=== PATIENT | female | born 1950 | race Caucasian/White ===

== ENCOUNTER → 2022-03-24 | Outpatient (CLI) | payer MEDICARE ==
[2022-03-24 16:42] LABS: Basophils # (A) 0.08 X 10*3/uL (0.00-0.10); Eosinophils # (A) 0.19 X 10*3/uL (0.04-0.35); Eosinophils % (A) 2.3 %; HCT 44.6 % (37.2-46.3); HGB 13.9 g/dL (12.0-15.0); Immature Grans, Automated 0.1 %; Lymphocytes # (A) 1.74 X 10*3/uL (0.90-5.00); Lymphocytes % (A) 21.4 %; MCH 29.3 pg (27.0-32.0); MCHC 31.2 g/dL (32.0-37.0); MCV 93.9 fL (80.0-97.0); Mean Platelet Volume 11.5 fL (9.5-12.2); Monocytes # (A) 0.63 X 10*3/uL (0.20-1.00); Monocytes % (A) 7.8 %; NRBC Per 100 WBC 0 /100 WBCS (0.0-0.0); Neutrophils # (A) 5.47 X 10*3/uL (1.80-7.70); Neutrophils % (A) 67.4 %; Platelet Count 227 X 10*3/uL (140-440); RBC 4.75 X 10*6/uL (4.10-5.20); RDW 15.1 % (11.5-14.5); WBC 8.12 X 10*3/uL (4.50-10.00)
[2022-03-24 18:29] LABS: % Iron Saturation 18.73 (12.00-45.00); ALT 17 U/L (8-44); AST 22 U/L (13-35); African American GFR (CKD) 26.1 (60.0-200.0); Albumin 4.3 g/dL (3.8-4.9); Albumin/Globulin Ratio 1.32 (1.60-3.17); Alkaline Phosphatase 163 U/L (41-126); BUN/Creat Ratio 20.85 Ratio (12.00-20.00); Blood Urea Nitrogen 44.4 mg/dL (9.0-27.0); Calcium 11.2 mg/dL (8.7-10.3); Carbon Dioxide 24.9 mmol/L (20.0-27.5); Chloride 102 mmol/L (96-109); Globulin 3.3 g/dL (1.6-3.3); Glucose 163 mg/dL (70-110); Iron 92 ug/dL (50-170); Magnesium 2.2 mg/dL (1.5-2.4); Non-African American GFR(CKD) 22.5 (60.0-200.0); Phosphorus 2.8 mg/dL (2.4-5.1); Potassium 4.7 mmol/L (3.5-5.5); Sodium 141 mmol/L (135-145); Total Iron Binding Capacity 493 ug/dL (228-460); Total Protein 7.6 g/dL (6.2-8.2); Uric Acid 7.6 mg/dL (2.9-7.7)
[2022-03-24 18:41] LABS: Erythrocyte Sedimentation Rate 26 mm/Hr (0-30)
[2022-03-24 20:20] LABS: Chol/HDL Ratio 2.62 Ratio; Creatine Kinase 32 U/L (26-186); LDL Cholesterol,Calculated 61.4 mg/dL (0.0-131.0); VLDL Calculation 19.62 mg/dL (5.00-40.00)
[2022-03-24 20:27] LABS: Digoxin 0.9 ng/mL (0.8-2.0)
== END | disposition home or self-care (01) ==
LOC: LABWHC1 11:30
PROVIDERS: ATTEND Internal Medicine Cardiovascular Disease
DX: D64.9 Anemia, unspecified (principal); I50.9 Heart failure, unspecified; E87.8 Other disorders of electrolyte and fluid balance, not elsewhere classified; E87.6 Hypokalemia; N18.4 Chronic kidney disease, stage 4 (severe); E78.5 Hyperlipidemia, unspecified; E21.3 Hyperparathyroidism, unspecified; E11.65 Type 2 diabetes mellitus with hyperglycemia; E03.9 Hypothyroidism, unspecified; E55.9 Vitamin D deficiency, unspecified; I12.9 Hypertensive chronic kidney disease with stage 1 through stage 4 chronic kidney disease, or unspecified chronic kidney disease
CPT/HCPCS: 36415; 80053; 80061; 80162; 82306; 82550; 83036; 83540; 83550; 83735; 83970; 84100; 84439; 84443; 84550; 85025; 85652; 86140

== ENCOUNTER → 2022-04-18 | Outpatient (CLI) | payer MEDICARE ==
--- NOTE | 2022-04-18 16:18 | US ---
EXAMINATION TYPE: US kidneys/renal and bladder DATE OF EXAM: 04/18/2022 COMPARISON: NONE CLINICAL HISTORY: R94.4 ABN RENAL FUNCTION TEST. Stage 3 kidney disease EXAM MEASUREMENTS: Right Kidney: 9.3 x 4.4 x 4.3 cm Left Kidney: 9.6 x 4.1 x 4.7 cm Right Kidney: No hydronephrosis or masses seen Left Kidney: No hydronephrosis or masses seen. Kidney appears lobular. Parapelvic cyst seen measuring 0.8 x 0.8 x 0.5 cm in midpole. Bladder: wnl Left bladder jet seen There is no evidence for hydronephrosis at this point in time. No nephrolithiasis is seen. No erich s are identified. The urinary bladder is anechoic. Incidental finding - gallstones seen in gallbladder. IMPRESSION: 1. Left peripelvic cyst. 2. Cholelithiasis
== END | disposition home or self-care (01) ==
LOC: RADUSWWP 14:46
PROVIDERS: ATTEND Internal Medicine
DX: R94.4 Abnormal results of kidney function studies (principal)
CPT/HCPCS: 76770

== ENCOUNTER → 2022-06-11 | Outpatient (CLI) | payer MEDICARE ==
--- NOTE | 2022-06-11 14:50 | XR ---
EXAMINATION TYPE: XR ribs bilateral DATE OF EXAM: 06/11/2022 2:28 PM INDICATION: Patient age:Female; 71 years old; Reason for study: E83.52,N18.4,E21.3,R07.81; [facility]. COMPARISON: Chest radiograph 06/28/2014. TECHNIQUE: Frontal and oblique views of the bilateral ribs were obtained with a total of 8 images. FINDINGS: Left chest wall dual lead cardiac pacemaking device identified. Moderate cardiomegaly redem onstrated. Aortic calcifications noted. Median sternotomy wires are demonstrated. Small bilateral ple ural effusions demonstrated with blunting of the bilateral costophrenic angles. No pneumothorax. Mult iple mediastinal surgical clips noted. No focal consolidation. Nondisplaced right lateral 9-12 rib fr actures. No definitive callus formation identified at this time. IMPRESSION RIBS: * Nondisplaced acute/subacute right lateral 9-12 rib fractures. No definitive pneumothorax. * Moderate cardiomegaly with small bilateral pleural effusions.
== END | disposition home or self-care (01) ==
LOC: RADXRMAIN 13:57
PROVIDERS: ATTEND Internal Medicine
DX: E83.52 Hypercalcemia (principal); N18.4 Chronic kidney disease, stage 4 (severe); R07.81 Pleurodynia
CPT/HCPCS: 71110

== ENCOUNTER → 2022-06-25 | Outpatient (CLI) | payer MEDICARE ==
[2022-06-25 14:39] LABS: Basophils # (A) 0.04 X 10*3/uL (0.00-0.10); Basophils % (A) 0.8 %; Eosinophils # (A) 0.21 X 10*3/uL (0.04-0.35); HCT 45.4 % (37.2-46.3); HGB 13.9 g/dL (12.0-15.0); Immature Grans, Automated 0.4 %; Lymphocytes # (A) 1.61 X 10*3/uL (0.90-5.00); Lymphocytes % (A) 30.3 %; MCH 28.4 pg (27.0-32.0); MCHC 30.6 g/dL (32.0-37.0); MCV 92.8 fL (80.0-97.0); Mean Platelet Volume 11.6 fL (9.5-12.2); Monocytes # (A) 0.53 X 10*3/uL (0.20-1.00); NRBC Per 100 WBC 0 /100 WBCS (0.0-0.0); Neutrophils % (A) 54.5 %; Platelet Count 181 X 10*3/uL (140-440); RBC 4.89 X 10*6/uL (4.10-5.20); RDW 15.6 % (11.5-14.5); WBC 5.31 X 10*3/uL (4.50-10.00)
[2022-06-25 14:47] LABS: African American GFR (CKD) 23.8 (60.0-200.0); Albumin 4.5 g/dL (3.8-4.9); Albumin/Globulin Ratio 1.45 (1.60-3.17); Anion Gap 12.6 mmol/L (10.00-18.00); BUN/Creat Ratio 24.35 Ratio (12.00-20.00); Calcium 11.4 mg/dL (8.7-10.3); Carbon Dioxide 27.4 mmol/L (20.0-27.5); Globulin 3.1 g/dL (1.6-3.3); Non-African American GFR(CKD) 20.5 (60.0-200.0); Phosphorus 3.1 mg/dL (2.4-5.1); Potassium 4.6 mmol/L (3.5-5.5); Total Bilirubin 0.9 mg/dL (0.30-1.20); Total Protein 7.6 g/dL (6.2-8.2)
== END | disposition home or self-care (01) ==
LOC: LABWHC1 10:09
PROVIDERS: ATTEND Internal Medicine
DX: N18.4 Chronic kidney disease, stage 4 (severe) (principal)
CPT/HCPCS: 36415; 80053; 84100; 85025

== ENCOUNTER → 2022-07-03 | Outpatient (CLI) | payer MEDICARE ==
[2022-07-04 00:24] LABS: African American GFR (CKD) 26.7 (60.0-200.0); Albumin 4.1 g/dL (3.8-4.9); Albumin/Globulin Ratio 1.51 (1.60-3.17); Anion Gap 12.2 mmol/L (10.00-18.00); BUN/Creat Ratio 24.78 Ratio (12.00-20.00); Blood Urea Nitrogen 51.8 mg/dL (9.0-27.0); Calcium 11.1 mg/dL (8.7-10.3); Carbon Dioxide 29.2 mmol/L (20.0-27.5); Globulin 2.8 g/dL (1.6-3.3); Non-African American GFR(CKD) 23.1 (60.0-200.0); Total Bilirubin 0.9 mg/dL (0.30-1.20); Total Protein 6.9 g/dL (6.2-8.2)
== END | disposition home or self-care (01) ==
LOC: LABWHC1 16:20
PROVIDERS: ATTEND Internal Medicine
DX: N18.4 Chronic kidney disease, stage 4 (severe) (principal)
CPT/HCPCS: 36415; 80053

== ENCOUNTER 2022-07-29 08:37 | Inpatient (IN) | payer MEDICARE ==
[2022-07-29] MEDS ORDERED: METOPROLOL TARTRATE 5 MG/5 ML VIAL IVP STA (08:44)
--- NOTE | 2022-07-29 08:46 | ED ---
General Adult HPI - General Stated complaint: AFib Time Seen by Provider: 07/29/22 08:38 Source: patient, EMS, RN notes reviewed, old records reviewed Mode of arrival: EMS Limitations: no limitations - History of Present Illness Initial comments: Patient is a pleasant 71-year-old female presenting to the emergency department with concerns for general weakness. Onset of symptoms was a week or 2 ago. Patient does have associated exertional dyspnea. Patient states she has been limiting her activity secondary to this. No chest pain or palpitations. Patient does take anticoagulant with history of atrial fibrillation. No leg pain or leg swelling. No isolated area of weakness or confusion. - Related Data Home Medications Medication Instructions Recorded Confirmed Atorvastatin [Lipitor] 80 mg PO DAILY 06/28/14 06/28/14 Bumetanide [BUMEX] 0.5 mg PO DAILY 06/28/14 06/28/14 Calcium Carbonate/Vitamin D3 1 tab PO DAILY 06/28/14 06/28/14 [Caltrate 600 Plus D3 Tablet] Cholecalciferol [Vitamin D3 (10 4,000 unit PO DAILY 06/28/14 06/28/14 Mcg = 400 Iu)] Digoxin [Lanoxin] 0.125 mg PO DAILY 06/28/14 06/28/14 Losartan [Cozaar] 50 mg PO DAILY 06/28/14 06/28/14 Memantine HCl [Namenda Xr] 28 mg PO DAILY 06/28/14 06/28/14 Metoprolol Succinate (ER) [Toprol 50 mg PO BID 06/28/14 06/28/14 XL] PARoxetine HCL [PARoxetine HCL Cr] 25 mg PO DAILY 06/28/14 06/28/14 Potassium Chloride [K-Tab ER] 10 meq PO DAILY 06/28/14 06/28/14 Vit A,C & E/Lutein/Minerals 1 tab PO DAILY 06/28/14 06/28/14 [Ocuvite with Lutein Tablet] Warfarin [Coumadin] 1.5 mg PO DIRECTED 06/28/14 06/28/14 Warfarin [Coumadin] 3 mg PO DIRECTED 06/28/14 06/28/14 glipiZIDE [Glucotrol] 5 mg PO DAILY 06/28/14 06/28/14 lamoTRIgine [Lamotrigine ER] 200 mg PO DAILY 06/28/14 06/28/14 Previous Rx's Medication Instructions Recorded Aspirin 325 mg PO DAILY #1 tab 07/01/14 Furosemide [Lasix] 40 mg PO DAILY #30 tablet 07/01/14 Spironolactone [Aldactone] 25 mg PO DAILY #30 tab 07/01/14 Tolterodine [Detrol] 2 mg PO BID #60 tab 07/01/14 Allergies Allergy/AdvReac Type Severity Reaction Status Date / Time iodine Allergy Unknown Verified 06/28/14 14:11 nifedipine [From Procardia] Allergy Unknown Verified 06/28/14 14:11 Review of Systems ROS Statement: Those systems with pertinent positive or pertinent negative responses have been documented in the HPI. ROS Other: All systems not noted in ROS Statement are negative. Constitutional: Denies: fever Eyes: Denies: eye pain ENT: Denies: ear pain Respiratory: Denies: cough Cardiovascular: Reports: dyspnea on exertion. Denies: chest pain Endocrine: Reports: fatigue Gastrointestinal: Denies: vomiting Genitourinary: Denies: dysuria Musculoskeletal: Denies: back pain Skin: Denies: rash Neurological: Reports: as per HPI. Denies: confusion Past Medical History Past Medical History: Diabetes Mellitus, Hyperlipidemia, Hypertension, Myocardial Infarction ([place]) Last Myocardial Infarction Date:: september 1991 History of Any Multi-Drug Resistant Organisms: None Reported Past Surgical History: AICD, Coronary Bypass/CABG Additional Past Surgical History / Comment(s): 1998 qunituple cabg Past Anesthesia/Blood Transfusion Reactions: No Reported Reaction Type of Cardiac Device: Permanent Pacemaker, AICD Device Placement Date:: 2001 Past Psychological History: Anxiety, Depression Past Alcohol Use History: None Reported - Past Family History Sister(s) Family Medical History: Deep Vein Thrombosis (DVT) Mother Family Medical History: Diabetes Mellitus Additional Family Medical History / Comment(s): mitral valve problemsl; stroke; macular degeneration Father Additional Family Medical History / Comment(s): ? cardiac history General Exam Limitations: no limitations General appearance: alert, in no apparent distress Head exam: Present: normocephalic Eye exam: Present: normal appearance Neck exam: Present: normal inspection Respiratory exam: Present: normal lung sounds bilaterally Cardiovascular Exam: Present: tachycardia, irregular rhythm Expanded Peripheral pulses: 2+: Radial (R), Radial (L), Dorsalis Pedis (R), Dorsalis Pedis (L) GI/Abdominal exam: Present: soft. Absent: tenderness Extremities exam: Present: normal inspection. Absent: pedal edema, calf tenderness Neurological exam: Present: alert, oriented X3, CN II-XII intact. Absent: motor sensory deficit Psychiatric exam: Present: normal affect, normal mood Skin exam: Present: normal color Course Vital Signs 07/29/22 07/29/22 07/29/22 08:41 09:02 09:30 Temperature 98.6 F 98.4 F 98.8 F Pulse Rate 123 H 110 H 116 H Pulse Rate [ 116 H Bilateral] Respiratory 20 20 20 Rate Blood Pressure 104/76 104/76 123/69 O2 Sat by Pulse 98 98 96 Oximetry 07/29/22 07/29/22 10:00 11:04 Temperature 100.1 F H 99.1 F Pulse Rate 128 H 102 H Pulse Rate [ Bilateral] Respiratory 16 16 Rate Blood Pressure 115/64 106/42 O2 Sat by Pulse 94 L 95 Oximetry - Reevaluation(s) Reevaluation #1: 07/29/22 08:51 Unable to view previous EKGs 07/29/22 09:04 Repeat EKG shows paced rhythm with a rate of 123. QRS 163. QT 322. QTC 365. Superior axis. Wide-complex QRS. Nonspecific ST-T. patient monitor with varying irregular rhythm, slightly widening QRS complex with rate between 105 and 135, frequently involved paced rhythm. 07/29/22 11:40 Patient is not felt to meet sepsis criteria secondary to tachycardia associated with patient's history of atrial fibrillation. In addition fluid bolus felt to be unwise secondary to patient's history of CHF and potential worsening dyspnea. EKG Findings - EKG Comments: EKG Findings:: EKG shows irregular rhythm with frequent paced rhythm rate 126. QRS 153. QT 297. QTC 372. [place] indeterminate. Q waves V2 V3. Nonspecific ST-T. Medical Decision Making - Medical Decision Making Patient reevaluated. Patient and family updated. Case was discussed with patient's primary care physician Dr. So, who will admit his patient consults with cardiology as well as nephrology. - Lab Data Result diagrams: 07/29/22 08:56 07/29/22 08:56 Lab Results 07/29/22 07/29/22 07/29/22 Range/Units 08:56 08:56 08:56 WBC 14.2 H (3.8-10.6) k/uL RBC 4.61 (3.80-5.40) m/uL Hgb 13.9 (11.4-16.0) gm/dL Hct 42.4 (34.0-46.0) % MCV 92.1 (80.0-100.0) fL MCH 30.1 (25.0-35.0) pg MCHC 32.7 (31.0-37.0) g/dL RDW 15.2 (11.5-15.5) % Plt Count 164 (150-450) k/uL MPV 8.7 Neutrophils % 88 % Lymphocytes % 5 % Monocytes % 5 % Eosinophils % 1 % Basophils % 1 % Neutrophils # 12.4 H (1.3-7.7) k/uL Lymphocytes # 0.7 L (1.0-4.8) k/uL Monocytes # 0.8 (0-1.0) k/uL Eosinophils # 0.1 (0-0.7) k/uL Basophils # 0.1 (0-0.2) k/uL Hypochromasia Slight PT 33.7 H (9.0-12.0) sec INR 3.4 H (<1.2) APTT 29.6 (22.0-30.0) sec Sodium 137 (137-145) mmol/L Potassium 4.6 (3.5-5.1) mmol/L Chloride 102 (98-107) mmol/L Carbon Dioxide 23 (22-30) mmol/L Anion Gap 12 mmol/L BUN 50 H (7-17) mg/dL Creatinine 1.98 H (0.52-1.04) mg/dL Est GFR (CKD-EPI)AfAm 29 (>60 ml/min/1.73 sqM) Est GFR (CKD-EPI)NonAf 25 (>60 ml/min/1.73 sqM) Glucose 250 H (74-99) mg/dL Calcium 10.9 H (8.4-10.2) mg/dL Magnesium 1.9 (1.6-2.3) mg/dL Total Bilirubin 3.1 H (0.2-1.3) mg/dL AST 28 (14-36) U/L ALT 20 (4-34) U/L Alkaline Phosphatase 200 H (38-126) U/L Troponin I (0.000-0.034) ng/mL NT-Pro-B Natriuret Pep pg/mL Total Protein 6.7 (6.3-8.2) g/dL Albumin 3.8 (3.5-5.0) g/dL TSH 3.280 (0.465-4.680) mIU/L Free T4 2.05 (0.78-2.19) ng/dL Free T3 pg/mL 4.0 (2.8-5.3) pg/ml Urine Color Urine Appearance (Clear) Urine pH (5.0-8.0) Ur Specific [place] (1.001-1.035) Urine Protein (Negative) Urine Glucose (UA) (Negative) Urine Ketones (Negative) Urine Blood (Negative) Urine Nitrite (Negative) Urine Bilirubin (Negative) Urine Urobilinogen (<2.0) mg/dL Ur Leukocyte Esterase (Negative) Urine RBC (0-5) /hpf Urine WBC (0-5) /hpf Ur Squamous Epith Cells (0-4) /hpf Amorphous Sediment (None) /hpf Urine Bacteria (None) /hpf Hyaline Casts (0-2) /lpf Urine Mucus (None) /hpf Coronavirus (PCR) (Not Detectd) Influenza Type A RNA (Not Detectd) Influenza Type B (PCR) (Not Detectd) 07/29/22 07/29/22 07/29/22 Range/Units 08:56 08:56 08:56 WBC (3.8-10.6) k/uL RBC (3.80-5.40) m/uL Hgb (11.4-16.0) gm/dL Hct (34.0-46.0) % MCV (80.0-100.0) fL MCH (25.0-35.0) pg MCHC (31.0-37.0) g/dL RDW (11.5-15.5) % Plt Count (150-450) k/uL MPV Neutrophils % % Lymphocytes % % Monocytes % % Eosinophils % % Basophils % % Neutrophils # (1.3-7.7) k/uL Lymphocytes # (1.0-4.8) k/uL Monocytes # (0-1.0) k/uL Eosinophils # (0-0.7) k/uL Basophils # (0-0.2) k/uL Hypochromasia PT (9.0-12.0) sec INR (<1.2) APTT (22.0-30.0) sec Sodium (137-145) mmol/L Potassium (3.5-5.1) mmol/L Chloride (98-107) mmol/L Carbon Dioxide (22-30) mmol/L Anion Gap mmol/L BUN (7-17) mg/dL Creatinine (0.52-1.04) mg/dL Est GFR (CKD-EPI)AfAm (>60 ml/min/1.73 sqM) Est GFR (CKD-EPI)NonAf (>60 ml/min/1.73 sqM) Glucose (74-99) mg/dL Calcium (8.4-10.2) mg/dL Magnesium (1.6-2.3) mg/dL Total Bilirubin (0.2-1.3) mg/dL AST (14-36) U/L ALT (4-34) U/L Alkaline Phosphatase (38-126) U/L Troponin I 0.055 H* (0.000-0.034) ng/mL NT-Pro-B Natriuret Pep 62998 pg/mL Total Protein (6.3-8.2) g/dL Albumin (3.5-5.0) g/dL TSH (0.465-4.680) mIU/L Free T4 (0.78-2.19) ng/dL Free T3 pg/mL (2.8-5.3) pg/ml Urine Color Yellow Urine Appearance Cloudy H (Clear) Urine pH 5.5 (5.0-8.0) Ur Specific [place] 1.019 (1.001-1.035) Urine Protein 2+ H (Negative) Urine Glucose (UA) Negative (Negative) Urine Ketones Negative (Negative) Urine Blood Small H (Negative) Urine Nitrite Negative (Negative) Urine Bilirubin Negative (Negative) Urine Urobilinogen 2.0 (<2.0) mg/dL Ur Leukocyte Esterase Large H (Negative) Urine RBC 31 H (0-5) /hpf Urine WBC 90 H (0-5) /hpf Ur Squamous Epith Cells 5 H (0-4) /hpf Amorphous Sediment Rare H (None) /hpf Urine Bacteria Rare H (None) /hpf Hyaline Casts 10 H (0-2) /lpf Urine Mucus Occasional H (None) /hpf Coronavirus (PCR) (Not Detectd) Influenza Type A RNA (Not Detectd) Influenza Type B (PCR) (Not Detectd) 07/29/22 07/29/22 Range/Units 10:25 10:25 WBC (3.8-10.6) k/uL RBC (3.80-5.40) m/uL Hgb (11.4-16.0) gm/dL Hct (34.0-46.0) % MCV (80.0-100.0) fL MCH (25.0-35.0) pg MCHC (31.0-37.0) g/dL RDW (11.5-15.5) % Plt Count (150-450) k/uL MPV Neutrophils % % Lymphocytes % % Monocytes % % Eosinophils % % Basophils % % Neutrophils # (1.3-7.7) k/uL Lymphocytes # (1.0-4.8) k/uL Monocytes # (0-1.0) k/uL Eosinophils # (0-0.7) k/uL Basophils # (0-0.2) k/uL Hypochromasia PT (9.0-12.0) sec INR (<1.2) APTT (22.0-30.0) sec Sodium (137-145) mmol/L Potassium (3.5-5.1) mmol/L Chloride (98-107) mmol/L Carbon Dioxide (22-30) mmol/L Anion Gap mmol/L BUN (7-17) mg/dL Creatinine (0.52-1.04) mg/dL Est GFR (CKD-EPI)AfAm (>60 ml/min/1.73 sqM) Est GFR (CKD-EPI)NonAf (>60 ml/min/1.73 sqM) Glucose (74-99) mg/dL Calcium (8.4-10.2) mg/dL Magnesium (1.6-2.3) mg/dL Total Bilirubin (0.2-1.3) mg/dL AST (14-36) U/L ALT (4-34) U/L Alkaline Phosphatase (38-126) U/L Troponin I (0.000-0.034) ng/mL NT-Pro-B Natriuret Pep pg/mL Total Protein (6.3-8.2) g/dL Albumin (3.5-5.0) g/dL TSH (0.465-4.680) mIU/L Free T4 (0.78-2.19) ng/dL Free T3 pg/mL (2.8-5.3) pg/ml Urine Color Urine Appearance (Clear) Urine pH (5.0-8.0) Ur Specific [place] (1.001-1.035) Urine Protein (Negative) Urine Glucose (UA) (Negative) Urine Ketones (Negative) Urine Blood (Negative) Urine Nitrite (Negative) Urine Bilirubin (Negative) Urine Urobilinogen (<2.0) mg/dL Ur Leukocyte Esterase (Negative) Urine RBC (0-5) /hpf Urine WBC (0-5) /hpf Ur Squamous Epith Cells (0-4) /hpf Amorphous Sediment (None) /hpf Urine Bacteria (None) /hpf Hyaline Casts (0-2) /lpf Urine Mucus (None) /hpf Coronavirus (PCR) Not Detected (Not Detectd) Influenza Type A RNA Not Detected (Not Detectd) Influenza Type B (PCR) Not Detected (Not Detectd) Disposition Clinical Impression: Urinary tract infection, Exertional dyspnea Disposition: ADMITTED IP TO THIS HOSP Is patient prescribed a controlled substance at d/c from ED?: No Referrals: Levy So MD [Primary Care Provider] - 1-2 days Time of Disposition: 11:41
[2022-07-29 09:07] LABS: Basophils # (A) 0.1 k/uL (0-0.2); Basophils % (A) 1 %; Eosinophils # (A) 0.1 k/uL (0-0.7); Eosinophils % (A) 1 %; HCT 42.4 % (34.0-46.0); HGB 13.9 gm/dL (11.4-16.0); Hypochromasia Slight; Lymphocytes # (A) 0.7 k/uL (1.0-4.8); Lymphocytes % (A) 5 %; MCH 30.1 pg (25.0-35.0); MCHC 32.7 g/dL (31.0-37.0); MCV 92.1 fL (80.0-100.0); Mean Platelet Volume 8.7; Monocytes # (A) 0.8 k/uL (0-1.0); Monocytes % (A) 5 %; Neutrophils # (A) 12.4 k/uL (1.3-7.7); Neutrophils % (A) 88 %; Platelet Count 164 k/uL (150-450); RBC 4.61 m/uL (3.80-5.40); RDW 15.2 % (11.5-15.5); WBC 14.2 k/uL (3.8-10.6)
[2022-07-29 09:16] LABS: INR 3.4 (<1.2); Partial Thromboplastin Time 29.6 sec (22.0-30.0); Prothrombin Time 33.7 sec (9.0-12.0)
--- NOTE | 2022-07-29 09:22 | XR ---
EXAMINATION TYPE: XR chest 1V portable DATE OF EXAM: 07/29/2022 9:16 AM COMPARISON: Chest radiographs from07/23/2022. TECHNIQUE: XR chest 1V portable Portable AP radiograph of the chest. CLINICAL INDICATION:Female, 71 years old with history of dysrhythmia; FINDINGS: Lungs/Pleura: There is no evidence of focal consolidation, or pneumothorax. Small bilateral pleural effusions. Pulmonary vascularity: Unremarkable. Heart/mediastinum: Cardiomediastinal silhouette is enlarged and stable. Two lead cardiac conduction d evice overlying the left hemithorax with lead tips projecting over the right ventricle and right atri um. Musculoskeletal: No acute osseous pathology. Midline sternotomy wires are noted. Right rib fractures are less well appreciated on this exam. IMPRESSION: 1. Small bilateral pleural effusions with associated atelectasis. 2. Right-sided rib fractures.
[2022-07-29 09:26] LABS: Albumin 3.8 g/dL (3.5-5.0); Calcium 10.9 mg/dL (8.4-10.2); Magnesium 1.9 mg/dL (1.6-2.3); Potassium 4.6 mmol/L (3.5-5.1); Total Bilirubin 3.1 mg/dL (0.2-1.3); Total Protein 6.7 g/dL (6.3-8.2)
[2022-07-29 09:37] LABS: T4, Free (Free Thyroxine) 2.05 ng/dL (0.78-2.19)
[2022-07-29] MEDS ORDERED: ACETAMINOPHEN TAB 325 MG TAB PO STA (10:06)
[2022-07-29 10:41] LABS: Amorphous Sediment,Urine Rare /hpf; Appearance,Urine Cloudy (Clear); Bacteria,Urine Rare /hpf; Bilirubin,Urine Negative (Negative); Blood,Urine Small (Negative); Color,Urine Yellow; Glucose,Urine (UA) Negative (Negative); Hyaline Casts,Urine 10 /lpf (0-2); Ketones,Urine Negative (Negative); Leukocyte Esterase,Urine Large (Negative); Mucus,Urine Occasional /hpf; Nitrite,Urine Negative (Negative); PH, Urine 5.5 (5.0-8.0); Protein,Urine 2+ (Negative); RBC,Urine 31 /hpf (0-5); Specific Gravity,Urine 1.019 (1.001-1.035); Squamous Epithelial Cell,Urine 5 /hpf (0-4); WBC,Urine 90 /hpf (0-5)
[2022-07-29] MEDS ORDERED: NALOXONE 0.4 MG/ML 1 ML VIAL IV PRN (11:43)
[2022-07-29] MEDS ORDERED: ACETAMINOPHEN TAB 325 MG TAB PO PRN (11:43)
[2022-07-29] MEDS ORDERED: FUROSEMIDE 10 MG/ML 4 ML VIAL IV STA (14:26)
--- NOTE | 2022-07-29 14:28 | P.CRDCN ---
History of Present Illness Consult date: 07/29/22 Requesting physician: Levy So Reason for Consult (text): exertional dyspnea, AFib Chief complaint: increasing weakness and shortness of breath History of present illness: This is a pleasant 71-year-old patient who follows in the office with Dr. Oneill. She has a history of prior CABG, ischemic cardiomyopathy, status post AICD, chronic persistent atrial fibrillation anticoagulated on warfarin, hypertension, CKD, hyperlipidemia and diabetes. Presented to the emergency department with c omplaints of progressively worsening weakness and shortness of breath over the last one to 2 weeks. Chest x-ray on admission showed small bilateral pleural effusions with associated atelectasis and right sided rib fractures. EKG showed atrial fibrillation with intermittently paced ventricular rhythm. Laboratory values show a white blood cell count of 14,200, INR 3.4, BUN 50, creatinine 1.98, NT proBNP 25,900 and troponin 0.055 and 0.068. Evidence of urinary tract infection. Blood pressure has been stable. T-max 100.1F. Upon review of the records so most recent available echocardiogram was from 2013 showed an ejection fraction less than 20%. Was apparently recently seen in the office and at that time her digoxin and spironolactone were both discontinued but she is not sure why. Over the last week or 2 she's been feeling more and more short of breath. She does have chronic orthopnea but has developed PND over the last couple weeks. She denies any worsening edema. She's had no chest discomfort, palpitations, dizziness or lightheadedness. Past Medical History Past Medical History: Diabetes Mellitus, Hyperlipidemia, Hypertension, Myoc ardial Infarction ([place]) Last Myocardial Infarction Date:: september 1991 History of Any Multi-Drug Resistant Organisms: None Reported Past Surgical History: AICD, Coronary Bypass/CABG Additional Past Surgical History / Comment(s): 1998 qunituple cabg Past Anesthesia/Blood Transfusion Reactions: No Reported Reaction Type of Cardiac Device: Permanent Pacemaker, AICD Device Placement Date:: 2001 Past Psychological History: Anxiety, Depression Past Alcohol Use History: None Reported - Past Family History Sister(s) Family Medical History: Deep Vein Thrombosis (DVT) Mother Family Medical History: Diabetes Mellitus Additional Family Medical History / Comment(s): mitral valve problemsl; stroke; macular degeneration Father Additional Family Medical History / Comment(s): ? cardiac history Medications and Allergies Home Medications Medication Instructions Recorded Confirmed Type Atorvastatin [Lipitor] 80 mg PO HS 06/28/14 07/29/22 History Bumetanide [BUMEX] 0.5 mg PO DAILY 06/28/14 07/29/22 History Metoprolol Succinate (ER) [Toprol 50 mg PO DAILY 06/28/14 07/29/22 History XL] Losartan [Cozaar] 25 mg PO DAILY 07/29/22 07/29/22 History Memantine [Namenda] 10 mg PO BID 07/29/22 07/29/22 History PARoxetine HCL [Paxil Cr] 37.5 mg PO DAILY 07/29/22 07/29/22 History Tolterodine [Detrol] 2 mg PO HS 07/29/22 07/29/22 History Warfarin [Coumadin] 2 mg PO HS 07/29/22 07/29/22 History glipiZIDE [glipiZIDE ER] 2.5 mg PO DAILY 07/29/22 07/29/22 History lamoTRIgine [LaMICtal] 200 mg PO HS 07/29/22 07/29/22 History Allergies Allergy/AdvReac Type Severity Reaction Status Date / Time Iodinated Contrast Media Allergy Rash/Hives Verified 07/29/22 13:18 iodine Allergy Rash/Hives Verified 07/29/22 13:18 nifedipine [From Procardia] Allergy Rash/Hives Verified 07/29/22 13:18 Physical Exam Vitals: Vital Signs Temp Pulse Pulse Resp BP Pulse Ox 07/29/22 12:39 99 20 104/42 95 07/29/22 11:04 99.1 F 102 H 16 106/42 95 07/29/22 10:00 100.1 F H 128 H 16 115/64 94 L 07/29/22 09:30 98.8 F 116 H 116 H 20 123/69 96 07/29/22 09:02 98.4 F 110 H 20 104/76 98 07/29/22 08:41 98.6 F 123 H 20 104/76 98 Intake and Output 07/28/22 07/29/22 07/29/22 22:59 06:59 14:59 Other: Weight 61.235 kg PHYSICAL EXAMINATION: This is a 71-year-old female in no apparent distress at the time of my examination. VITAL SIGNS: Blood pressure 104/42, heart rate 99, respirations 20, temp 99.1F. Patient is 95 % on room air. HEENT: Head is atraumatic, normocephalic. Pupils are equal, round. Sclerae ani cteric. Conjunctivae are clear. Mucous membranes of the mouth are moist. Neck is supple. There is no elevated jugular venous pressure. No carotid bruit is heard. CHEST EXAMINATION: Lungs reveal bibasilar crackles. No wheezes or rhonchi. Respirations even and nonlabored. HEART EXAMINATION: Heart irregular rate and rhythm, positive S1 and S2. No S3. No S4. Systolic murmur. ABDOMEN: Soft, nontender. Bowel sounds are heard. No organomegaly noted. EXTREMITIES: 2+ peripheral pulses with no evidence of peripheral edema and no calf tenderness noted. NEUROLOGIC EXAMINATION: Patient is awake, alert and oriented x3. Results 07/29/22 08:56 07/29/22 08:56 Cardiac Enzymes 07/29/22 07/29/22 07/29/22 Range/Units 08:56 08:56 12:00 AST 28 (14-36) U/L Troponin I 0.055 H* 0.068 H* (0.000-0.034) ng/mL Coagulation 07/29/22 Range/Units 08:56 PT 33.7 H (9.0-12.0) sec APTT 29.6 (22.0-30.0) sec CBC 07/29/22 Range/Units 08:56 WBC 14.2 H (3.8-10.6) k/uL RBC 4.61 (3.80-5.40) m/uL Hgb 13.9 (11.4-16.0) gm/dL Hct 42.4 (34.0-46.0) % Plt Count 164 (150-450) k/uL Comprehensive Metabolic Panel 07/29/22 Range/Units 08:56 Sodium 137 (137-145) mmol/L Potassium 4.6 (3.5-5.1) mmol/L Chloride 102 (98-107) mmol/L Carbon Dioxide 23 (22-30) mmol/L BUN 50 H (7-17) mg/dL Creatinine 1.98 H (0.52-1.04) mg/dL Glucose 250 H (74-99) mg/dL Calcium 10.9 H (8.4-10.2) mg/dL AST 28 (14-36) U/L ALT 20 (4-34) U/L Alkaline Phosphatase 200 H (38-126) U/L Total Protein 6.7 (6.3-8.2) g/dL Albumin 3.8 (3.5-5.0) g/dL Current Medications Generic Name Dose Route Start Last Admin Trade Name Freq PRN Reason Stop Dose Admin Acetaminophen 650 mg 07/29/22 11:43 Acetaminophen Tab 325 Mg Tab PO Q6HR PRN Mild Pain or Fever > 100.5 Atorvastatin Calcium 80 mg 07/29/22 21:00 Atorvastatin 80 Mg Tab PO HS [facility] Bumetanide 0.5 mg 07/30/22 09:00 Bumetanide 0.5 Mg Tablet PO DAILY [facility] Glipizide 2.5 mg 07/30/22 09:00 Glipizide 2.5 Mg Tab PO DAILY [facility] Ceftriaxone Sodium 1 gm/ 50 mls @ 100 mls/hr 07/29/22 11:45 07/29/22 12:37 Sodium Chloride IVPB 100 mls/hr Q12HR [facility] Administration Protocol Insulin Aspart 2 - 8 unit 07/29/22 17:30 Insulin Aspart (Novolog) 100 Unit/Ml Vial SQ AC-TID [facility] Protocol Lamotrigine 200 mg 07/29/22 21:00 Lamotrigine 100 Mg Tab PO HS [facility] Losartan Potassium 25 mg 07/30/22 09:00 Losartan 25 Mg Tab PO DAILY [facility] Memantine 10 mg 07/29/22 21:00 Memantine 10 Mg Tab PO BID [facility] Metoprolol Succinate 50 mg 07/29/22 13:30 Metoprolol Succinate (Er) 50 Mg Tab.Er.24h PO DAILY [facility] Miscellaneous Information 0 each 07/29/22 13:49 Warfarin Per Pharmacy MISCELLANE DIRECTED PRN ANTICOAG Naloxone HCl 0.2 mg 07/29/22 11:43 Naloxone 0.4 Mg/Ml 1 Ml Vial IV Q2M PRN Opioid Reversal Oxybutynin Chloride 5 mg 07/29/22 21:00 Oxybutynin Xl 5 Mg Tab.Er.24 PO HS [facility] Paroxetine HCl 30 mg 07/30/22 09:00 Paroxetine 10 Mg Tab PO DAILY [facility] Warfarin Sodium 0 mg 07/29/22 18:00 Warfarin 0.5 Mg Tab PO 07/29/22 18:01 ONCE@1800 ONE Intake and Output 07/28/22 07/29/22 07/29/22 22:59 06:59 14:59 Other: Weight 61.235 kg Patient Weight 07/30/22 06:59 Weight 61.235 kg 07/29/22 08:56 07/29/22 08:56 Assessment and Plan Assessment: #1 acute on chronic systolic congestive heart failure #2 CAD with prior CABG #3 ischemic cardiomyopathy #4 chronic persistent atrial fibrillation, anticoagulated on warfarin, INR supratherapeutic #5 UTI #6 chronic kidney disease, stable Plan: From cardiology perspective will give the patient also IV Lasix today. We will obtain a 2-D echo with Doppler study tomorrow to assess cardiac structure and function. Continued on monitor daily weights, renal function, electrolytes and I&O. We will continue to follow the patient and provide further recommendations accordingly. PERSONAL INJURY ATTORNEY note has been reviewed, I agree with a documented findings and plan of care. Patient was seen and examined.
--- NOTE | 2022-07-29 14:45 | P.HPIM ---
History of Present Illness H&P Date: 07/29/22 Chief Complaint: Progressive shortness of breath and fatigued with tiredness decrease her ac Progress note date of service 07/29/[address] IBIS Bell M.D. [facility]. Patient seen and evaluated [id number] and discussed with her the plan of care. Chief complaint patient has progressive weakness shortness of breath inability to do her ADLs at home could not handle it anymore came to the ER at [facility]. In the ER patient found that she had several medical problem #1 her heart rate was 128 with the left infraclavicular pacemaker with the atrial fibrillation acceleration. Associated with proBNP more than 25,000 with the underlying impaired ejection fraction approximately in the 30-25 per patient however I don't have an echocardiogram which will be ordered. #2 patient with history of coronary artery bypass 5 and left infraclavicular pacemaker with the ischemic cardiomyopathy and had currently in the ER elevated troponin 2 with the possibility of subendocardial ischemia. #3 chronic kidney disease stage IV #4 she had as well history of hypercalcemia, hyperparathyroidism, mineral bone disease associated with the renal compromising status. Area as well found that she had a UTI and they started her on the Rocephin twice a day 1 g. Patient is diabetic and she is also on anticoagulant she had elevated pro-time and INR will held Coumadin today until tomorrow and asking consultation with pharmacy to address and the monitor. On admission she had pyrexia with the elevated temperature 100.1 F oral a blood culture was obtained and we request as well if the temperature is elevated again with repeat the blood culture 2. She has a history of cholelithiasis in the past as well. Past medical history she had history of coronary artery disease a status post coronary artery bypass graft 4 Chronic kidney disease stage IV and biventricular chronic congestive heart failure and atrial fibrillation. [place]. And recently moved to [place]. Patient seen recently by Maria Del Rosario physician certified medical technician assistant at Dr. Orellana office medical transcription supervisor and that they took her off the digoxin. She is on warfarin anticoagulant and did not change that per cardiology. She had a past history of fall and fracture of the right ribs on June 11. ALLERGY nifedipine, iodine topical, Monodox, cephalexin. Social history one dog 1 daughter and 1 son Live alone Former smoker start 1970 and stopped in 1990 . She has underlying major depressive disorder treated with psychiatrist. Reviewing of the system: Neuropsychiatry stable with her current medication Cardiovascular progressive shortness of breath however troponin was elevated on this admission 2 Pulmonary again shortness of breath and the chest x-ray was indicating pleural effusion and atelectasis and leukocytosis and patient had blood culture on admission and found that her urine infection. Frequency of urination and associated with diabetes and also chronic kidney disease and congestive heart failure she is on diuretics. Skin no rashes. History of hyperlipidemia and vitamin D insufficiency. However currently she had hypercalcemia. Musculoskeletal she had pain in the rib cage and the right sided with the presence of fracture due to fall Eyes she wears glasses and she had a pacemaker infraclavicular she thought that she has history of swelling however on exam was negative On exam [id number] her vital sign indicating on admission temperature 100.1 F oral heart rate 1 28 bpm irregular irregularity was white 4 times a day harass complexes from the pacemaker is her blood pressure was 115/64 her pulse ox 94 on room air. Her laboratories in the ER found white count 14.2 with leukocytosis and neutrophilia feel 12.4 her PTT 33.7 with INR 3.4 and the PTT 29.6. Chemistry sodium 137 potassium 4.6 chloride 102 carbon dioxide 23 BUN 50 creatinine 1.9 to EGFR for non- 25 her glucose 250. Her lactic acid was 1.3 normal her calcium was 10.9 prior to that was 11 AST 28 a LT 20 alk phos 200 and her troponin I correction troponin 10.055 first reading and second reading 0.68 with progressive elevation her pro-NT proBNP 25 925,900. With the underlying UTI was increase the leukocytes. On the exam the head was normocephalic and atraumatic pupil was equal reactive conjunctiva was pink sclera was nonicteric and her oropharynx was negative and the neck was supple no JVD no thyromegaly no lymphadenopathy and trachea midline. The chest was bilateral basilar rales on the basis of the chest lung was created with decreased air entry the heart was a PMI in the fifth intercostal space outside midclavicular line and he she had infraclavicular pacemaker as well as irregular irregularity the abdomen is soft and nontender positive bowel sounds denied any nausea or vomiting extremities trace to no edema pulses was intact bilaterally and she is ambulatory Psychiatry she has history of major depression on medication and she stable mood Neurologically stable no lateralizing sign no neuro deficit. Assessment: #1 acute congestive heart failure biventricular on the top of chronic. With the impaired ejection fraction #2 status post coronary artery bypass graft 5 #3 elevated NT proBNP 25 900. #4 chronic kidney disease stage IV. #5 elevated troponin 2 so far #6 pyrexia with temperature presentation 100.1 blood culture was obtained in the ER and requested the urine culture. #7 hyperparathyroidism and mineral bone disease #8 right hip fracture in June. #9 hypercalcemia rule out vitamin D toxicity, versus secondary to hyperparathyroidism. #10 diabetes mellitus type 2 uncontrolled and will start insulin to scale. Plan: #1 we'll obtain echocardiogram in a.m. for evaluation of the left ventricular function and the acute congestive heart failure on the top of chronic #2 chronic kidney disease stage IV with hypercalcemia #3 consultation with cardiology #4 consultation with nephrology #5 monitoring the troponin with the probability of endocardial ischemia highly considered with elevated troponin and despite that she is in chronic kidney disease stage IV Continuation of antibiotic with the underlying urinary tract infection For further treatment depending on the patient results, we order the pro-calcitonin, lab for tomorrow was ordered already., EKG tomorrow when cardiology see the patient to evaluate. Past Medical History Past Medical History: Diabetes Mellitus, Hyperlipidemia, Hypertension, Myocardial Infarction ([place]) Last Myocardial Infarction Date:: september 1991 History of Any Multi-Drug Resistant Organisms: None Reported Past Surgical History: AICD, Coronary Bypass/CABG Additional Past Surgical History / Comment(s): 1998 qunituple cabg Past Anesthesia/Blood Transfusion Reactions: No Reported Reaction Type of Cardiac Device: Permanent Pacemaker, AICD Device Placement Date:: 2001 Past Psychological History: Anxiety, Depression Past Alcohol Use History: None Reported - Past Family History Sister(s) Family Medical History: Deep Vein Thrombosis (DVT) Mother Family Medical History: Diabetes Mellitus Additional Family Medical History / Comment(s): mitral valve problemsl; stroke; macular degeneration Father Additional Family Medical History / Comment(s): ? cardiac history Medications and Allergies Home Medications Medication Instructions Recorded Confirmed Type Atorvastatin [Lipitor] 80 mg PO HS 06/28/14 07/29/22 History Bumetanide [BUMEX] 0.5 mg PO DAILY 06/28/14 07/29/22 History Metoprolol Succinate (ER) [Toprol 50 mg PO DAILY 06/28/14 07/29/22 History XL] Losartan [Cozaar] 25 mg PO DAILY 07/29/22 07/29/22 History Memantine [Namenda] 10 mg PO BID 07/29/22 07/29/22 History PARoxetine HCL [Paxil Cr] 37.5 mg PO DAILY 07/29/22 07/29/22 History Tolterodine [Detrol] 2 mg PO HS 07/29/22 07/29/22 History Warfarin [Coumadin] 2 mg PO HS 07/29/22 07/29/22 History glipiZIDE [glipiZIDE ER] 2.5 mg PO DAILY 07/29/22 07/29/22 History lamoTRIgine [LaMICtal] 200 mg PO HS 07/29/22 07/29/22 History Allergies Allergy/AdvReac Type Severity Reaction Status Date / Time Iodinated Contrast Media Allergy Rash/Hives Verified 07/29/22 13:18 iodine Allergy Rash/Hives Verified 07/29/22 13:18 nifedipine [From Procardia] Allergy Rash/Hives Verified 07/29/22 13:18 Physical Exam Vitals: Vital Signs Temp Pulse Pulse Resp BP Pulse Ox 07/29/22 12:39 99 20 104/42 95 07/29/22 11:04 99.1 F 102 H 16 106/42 95 07/29/22 10:00 100.1 F H 128 H 16 115/64 94 L 07/29/22 09:30 98.8 F 116 H 116 H 20 123/69 96 07/29/22 09:02 98.4 F 110 H 20 104/76 98 07/29/22 08:41 98.6 F 123 H 20 104/76 98 Intake and Output 07/28/22 07/29/22 07/29/22 22:59 06:59 14:59 Other: Weight 61.235 kg Results CBC & Chem 7: 07/29/22 08:56 07/29/22 08:56 Labs: Abnormal Lab Results - Last 24 Hours (Table) 07/29/22 07/29/22 07/29/22 Range/Units 08:56 08:56 08:56 WBC 14.2 H (3.8-10.6) k/uL Neutrophils # 12.4 H (1.3-7.7) k/uL Lymphocytes # 0.7 L (1.0-4.8) k/uL PT 33.7 H (9.0-12.0) sec INR 3.4 H (<1.2) BUN 50 H (7-17) mg/dL Creatinine 1.98 H (0.52-1.04) mg/dL Glucose 250 H (74-99) mg/dL Calcium 10.9 H (8.4-10.2) mg/dL Total Bilirubin 3.1 H (0.2-1.3) mg/dL Alkaline Phosphatase 200 H (38-126) U/L Troponin I (0.000-0.034) ng/mL Urine Appearance (Clear) Urine Protein (Negative) Urine Blood (Negative) Ur Leukocyte Esterase (Negative) Urine RBC (0-5) /hpf Urine WBC (0-5) /hpf Ur Squamous Epith Cells (0-4) /hpf Amorphous Sediment (None) /hpf Urine Bacteria (None) /hpf Hyaline Casts (0-2) /lpf Urine Mucus (None) /hpf 07/29/22 07/29/22 07/29/22 Range/Units 08:56 08:56 12:00 WBC (3.8-10.6) k/uL Neutrophils # (1.3-7.7) k/uL Lymphocytes # (1.0-4.8) k/uL PT (9.0-12.0) sec INR (<1.2) BUN (7-17) mg/dL Creatinine (0.52-1.04) mg/dL Glucose (74-99) mg/dL Calcium (8.4-10.2) mg/dL Total Bilirubin (0.2-1.3) mg/dL Alkaline Phosphatase (38-126) U/L Troponin I 0.055 H* 0.068 H* (0.000-0.034) ng/mL Urine Appearance Cloudy H (Clear) Urine Protein 2+ H (Negative) Urine Blood Small H (Negative) Ur Leukocyte Esterase Large H (Negative) Urine RBC 31 H (0-5) /hpf Urine WBC 90 H (0-5) /hpf Ur Squamous Epith Cells 5 H (0-4) /hpf Amorphous Sediment Rare H (None) /hpf Urine Bacteria Rare H (None) /hpf Hyaline Casts 10 H (0-2) /lpf Urine Mucus Occasional H (None) /hpf
[2022-07-29] MEDS: METOPROLOL SUCCINATE (ER) 50 MG TAB.ER.24H PO SCH (15:05)
[2022-07-29] MEDS ORDERED: SODIUM CHLORIDE 0.9% 250 ML with PAMIDRONATE 60 MG IV ONE ×2 (16:00)
[2022-07-29 16:18] LABS: Ionized Calcium 5.8 mg/dL (4.5-5.3)
[2022-07-29 16:26] LABS: Glucose,Whole Blood 146 mg/dL (70-110)
[2022-07-29] MEDS: INSULIN ASPART (NovoLOG) 100 UNIT/ML VIAL SQ SCH (17:13)
[2022-07-29] MEDS ORDERED: WARFARIN 0.5 MG TAB PO ONE (18:00)
[2022-07-29 20:00] LABS: Glucose,Whole Blood 145 mg/dL (70-110)
[2022-07-29] MEDS: ATORVASTATIN 80 MG TAB PO SCH (20:41)
[2022-07-29] MEDS: MEMANTINE 10 MG TAB PO SCH (20:41)
[2022-07-29] MEDS: lamoTRIgine 100 MG TAB PO SCH (20:41)
[2022-07-29] MEDS: OXYBUTYNIN XL 5 MG TAB.ER.24 PO SCH (20:41)
[2022-07-29] MEDS ORDERED: WARFARIN 2 MG TAB PO SCH (21:00)
[2022-07-30 05:54] LABS: Glucose,Whole Blood 162 mg/dL (70-110)
[2022-07-30] MEDS: INSULIN ASPART (NovoLOG) 100 UNIT/ML VIAL SQ SCH ×3 (06:46→17:06)
[2022-07-30 07:58] LABS: Basophils % (A) 1 %; Eosinophils # (A) 0.2 k/uL (0-0.7); Eosinophils % (A) 2 %; HCT 42.3 % (34.0-46.0); HGB 13.4 gm/dL (11.4-16.0); Hypochromasia Slight; Lymphocytes # (A) 1.5 k/uL (1.0-4.8); Lymphocytes % (A) 20 %; MCH 29.3 pg (25.0-35.0); MCHC 31.7 g/dL (31.0-37.0); MCV 92.4 fL (80.0-100.0); Mean Platelet Volume 8.3; Monocytes # (A) 0.5 k/uL (0-1.0); Monocytes % (A) 7 %; Neutrophils # (A) 5.2 k/uL (1.3-7.7); Neutrophils % (A) 69 %; Platelet Count 138 k/uL (150-450); RBC 4.58 m/uL (3.80-5.40); RDW 15.4 % (11.5-15.5); WBC 7.5 k/uL (3.8-10.6)
[2022-07-30 08:04] LABS: INR 2.9 (<1.2)
[2022-07-30 08:22] LABS: Albumin 3.5 g/dL (3.5-5.0); Calcium 10.2 mg/dL (8.4-10.2); Potassium 3.9 mmol/L (3.5-5.1); Total Bilirubin 1.7 mg/dL (0.2-1.3); Total Protein 6.2 g/dL (6.3-8.2)
--- NOTE | 2022-07-30 09:46 | P.NPCON ---
History of Present Illness - Reason for Consult chronic renal failure - History of Present Illness Reason for consultation: Chronic kidney disease History of present illness: Patient is a 71-year-old female seen in consultation for chronic kidney disease. Patient has chronic kidney disease stage IV with baseline creatinine near 2 secondary to diabetic kidney disease. Patient is also noted to be hyperc alcemic. Calcium was 10.9 yesterday and is 10.2 today. Patient presented to the hospital with generalized weakness. Patient states she was unable to even stand for short. If time. She denies any dizziness or syncopal episodes. Patient does have history of systolic CHF and has a defibrillator. She did receive a dose of IV Lasix and is currently maintained on oral Bumex 0.5 mg once daily. She denies use of nonsteroidals. She has lost any history of diabetes. Creatinine is fairly stable this admission. She has been voiding. Denies hematuria or dysuria. Denies vomiting or diarrhea. No fever or chills. She denies use of calcium or vitamin D supplements. Denies history of malignancy. Vital signs are stable. General: Awake. No acute distress. HEENT: Head exam is unremarkable. LUNGS: Breath sounds decreased. HEART: Rate and Rhythm are regular. ABDOMEN: Soft, no distention. EXTREMITITES: Trace edema. Past Medical History Past Medical History: Diabetes Mellitus, Hyperlipidemia, Hypertension, Myocardial Infarction ([place]) Last Myocardial Infarction Date:: september 1991 History of Any Multi-Drug Resistant Organisms: None Reported Past Surgical History: AICD, Coronary Bypass/CABG Additional Past Surgical History / Comment(s): 1998 qunituple cabg Past Anesthesia/Blood Transfusion Reactions: No Reported Reaction Type of Cardiac Device: Permanent Pacemaker, AICD Device Placement Date:: 2001 Past Psychological History: Anxiety, Depression Past Alcohol Use History: None Reported - Past Family History Sister(s) Family Medical History: Deep Vein Thrombosis (DVT) Mother Family Medical History: Diabetes Mellitus Additional Family Medical History / Comment(s): mitral valve problemsl; stroke; macular degeneration Father Additional Family Medical History / Comment(s): ? cardiac history Medications and Allergies Home Medications Medication Instructions Recorded Confirmed Type Atorvastatin [Lipitor] 80 mg PO HS 06/28/14 07/29/22 History Bumetanide [BUMEX] 0.5 mg PO DAILY 06/28/14 07/29/22 History Metoprolol Succinate (ER) [Toprol 50 mg PO DAILY 06/28/14 07/29/22 History XL] Losartan [Cozaar] 25 mg PO DAILY 07/29/22 07/29/22 History Memantine [Namenda] 10 mg PO BID 07/29/22 07/29/22 History PARoxetine HCL [Paxil Cr] 37.5 mg PO DAILY 07/29/22 07/29/22 History Tolterodine [Detrol] 2 mg PO HS 07/29/22 07/29/22 History Warfarin [Coumadin] 2 mg PO HS 07/29/22 07/29/22 History glipiZIDE [glipiZIDE ER] 2.5 mg PO DAILY 07/29/22 07/29/22 History lamoTRIgine [LaMICtal] 200 mg PO HS 07/29/22 07/29/22 History Allergies Allergy/AdvReac Type Severity Reaction Status Date / Time Iodinated Contrast Media Allergy Rash/Hives Verified 07/29/22 13:18 iodine Allergy Rash/Hives Verified 07/29/22 13:18 nifedipine [From Procardia] Allergy Rash/Hives Verified 07/29/22 13:18 Physical Exam Vitals: Vital Signs Temp Pulse Pulse Pulse Resp BP BP 07/30/22 03:30 97.9 F 76 18 98/68 07/29/22 23:40 97.4 F L 79 18 103/68 07/29/22 20:27 97.7 F 76 18 107/70 07/29/22 17:10 87 16 97/63 07/29/22 14:00 16 07/29/22 12:50 98.5 F 88 16 108/56 07/29/22 12:39 99 20 104/42 07/29/22 11:04 99.1 F 102 H 16 106/42 07/29/22 10:00 100.1 F H 128 H 16 115/64 Pulse Ox 07/30/22 03:30 97 07/29/22 23:40 95 07/29/22 20:27 97 07/29/22 17:10 92 L 07/29/22 14:00 07/29/22 12:50 93 L 07/29/22 12:39 95 07/29/22 11:04 95 07/29/22 10:00 94 L Intake and Output 07/29/22 07/30/22 07/30/22 22:59 06:59 14:59 Intake Total 118 Output Total 50 675 Balance 68 -675 Intake: Oral 118 Output: Urine 50 675 Other: Voiding Method Toilet Toilet # Voids 1 Weight 69.6 kg 69.1 kg Results - Lab Results Most recent lab results Calcium 10.2 mg/dL (8.4-10.2) 07/30/22 07:40 Magnesium 1.9 mg/dL (1.6-2.3) 07/29/22 08:56 07/30/22 07:40 07/30/22 07:40 Assessment and Plan Plan: Assessment: 1. Chronic kidney disease stage IV secondary to diabetic kidney disease and cardiorenal syndrome with baseline creatinine near 2. 2. Acute on chronic systolic CHF. 3. Coronary artery disease status post CABG. 4. Hypercalcemia. Status post pamidronate given 07/21/2022. Also on diuretic. Improved. PTH 125. TSH normal. Vitamin D 31. 5. Diabetes mellitus. 6. UTI on antibiotics. Plan: Maintain oral Bumex. Follow-up pending workup for hypercalcemia. Check parathyroid nuclear scan to rule out adenoma. Add midodrine. Hold for systolic blood pressure greater than 110. Continue to monitor renal function and urine output. Avoid nephrotoxins. Thank you for the consultation. I will continue to follow the patient with you during her hospital stay.
[2022-07-30] MEDS: MEMANTINE 10 MG TAB PO SCH ×2 (09:50→21:04)
[2022-07-30] MEDS: LOSARTAN 25 MG TAB PO SCH (09:50)
[2022-07-30] MEDS: BUMETANIDE 0.5 MG TABLET PO SCH (09:51)
[2022-07-30] MEDS: METOPROLOL SUCCINATE (ER) 50 MG TAB.ER.24H PO SCH (09:51)
[2022-07-30] MEDS: PARoxetine 10 MG TAB PO SCH (09:52)
[2022-07-30 11:35] LABS: Glucose,Whole Blood 153 mg/dL (70-110)
--- NOTE | 2022-07-30 12:10 | P.PN ---
Subjective This is a pleasant 71-year-old patient who follows in the office with Dr. Oneill. She has a history of prior CABG, ischemic cardiomyopathy EF <20%, status post AICD, chronic persistent atrial fibrillation anticoagulated on warfarin, hypertension, CKD, hyperlipidemia and diabetes. Presented to the emergency department with complaints of progressively worsening weakness and shortness of breath over the last one to 2 weeks. Chest x-ray on admission showed small bilateral pleural effusions with associated atelectasis and right sided rib fractures. EKG showed atrial fibrillation with intermittently paced ventricular rhythm. Laboratory values show a white blood cell count of 14,200, INR 3.4, BUN 50, creatinine 1.98, NT proBNP 25,900 and troponin 0.055 and 0.068. Evidence of urinary tract infection. Blood pressure has been stable. 07/30 Patient seen and examined at bedside, she is comfortable in bed. No shortness of breath or edema. Her Vital signs are stable, BP 110/73. HR 89. Last, BUN 55, serum creatinine 2.08, INR 2.9 She's currently maintained on by mouth Bumex 0.5mg, nephrology is following and managing diuretics. GENERAL: Frail on exam. No acute distress. NECK: Supple without JVD LUNGS: Breath sounds diminished to auscultation bilaterally. Respiration equal and unlabored. No wheezes, rales or rhonchi. HEART: Irregular rate and rhythm without Systolic ejection murmur, No rubs or gallops. S1 and S2 heard. EXTREMITIES: Normal range of motion, no edema. No clubbing or cyanosis. Peripheral pulses intact. ASSESSMENT Acute on chronic systolic congestive heart failure, improved Febrile CAD with prior CABG Ischemic cardiomyopathy status post AICD Permanent atrial fibrillation, anticoagulated on warfarin, INR supratherapeutic UTI Chronic kidney disease, stable Hypercalcemia PLAN Continue PO Bumex Continued on monitor daily weights, renal function, electrolytes and I&O. Nephrology is following Continue anticoagulation Continue home cardiac medications From cardiology perspective, patient is stable. We'll follow the patient as needed. Please reconsult if needed. OUTBOARD MOTOR TESTER note has been reviewed, I agree with a documented findings and plan of care. Patient was seen and examined. Objective - Vital Signs Vital signs: Vital Signs Temp 97.8 F 07/30/22 09:47 Pulse 89 07/30/22 09:47 Resp 16 07/30/22 09:47 BP 110/73 07/30/22 09:47 Pulse Ox 98 07/30/22 09:47 FiO2 Intake & Output 07/29/22 07/30/22 07/30/22 18:59 06:59 18:59 Intake Total 598 120 Output Total 1 725 Balance 597 -725 120 Weight 69.6 kg 69.1 kg Intake: Oral 598 120 Output: Urine 1 725 Other: Voiding Method Toilet Toilet # Voids 1 - Labs CBC & Chem 7: 07/30/22 07:40 07/30/22 07:40 Labs: Abnormal Lab Results - Last 24 Hours (Table) 07/29/22 07/29/22 07/29/22 Range/Units 12:00 14:44 14:44 Plt Count (150-450) k/uL PT (9.0-12.0) sec INR (<1.2) BUN (7-17) mg/dL Creatinine (0.52-1.04) mg/dL Glucose (74-99) mg/dL POC Glucose (mg/dL) (70-110) mg/dL Ionized Calcium Luis E 5.8 H (4.5-5.3) mg/dL Total Bilirubin (0.2-1.3) mg/dL Alkaline Phosphatase (38-126) U/L Troponin I 0.068 H* 0.094 H* (0.000-0.034) ng/mL Total Protein (6.3-8.2) g/dL Total Protein (PEP) (6.2-8.2) g/dL Procalcitonin (0.02-0.09) ng/mL PTH Intact (14.0-72.0) pg/mL 07/29/22 07/29/22 07/29/22 Range/Units 14:44 14:44 16:24 Plt Count (150-450) k/uL PT (9.0-12.0) sec INR (<1.2) BUN (7-17) mg/dL Creatinine (0.52-1.04) mg/dL Glucose (74-99) mg/dL POC Glucose (mg/dL) 146 H (70-110) mg/dL Ionized Calcium Luis E (4.5-5.3) mg/dL Total Bilirubin (0.2-1.3) mg/dL Alkaline Phosphatase (38-126) U/L Troponin I (0.000-0.034) ng/mL Total Protein (6.3-8.2) g/dL Total Protein (PEP) (6.2-8.2) g/dL Procalcitonin 0.21 H (0.02-0.09) ng/mL PTH Intact 125.0 H (14.0-72.0) pg/mL 07/29/22 07/30/22 07/30/22 Range/Units 19:58 05:53 07:40 Plt Count (150-450) k/uL PT (9.0-12.0) sec INR (<1.2) BUN (7-17) mg/dL Creatinine (0.52-1.04) mg/dL Glucose (74-99) mg/dL POC Glucose (mg/dL) 145 H 162 H (70-110) mg/dL Ionized Calcium Luis E (4.5-5.3) mg/dL Total Bilirubin (0.2-1.3) mg/dL Alkaline Phosphatase (38-126) U/L Troponin I (0.000-0.034) ng/mL Total Protein (6.3-8.2) g/dL Total Protein (PEP) 6.0 L (6.2-8.2) g/dL Procalcitonin (0.02-0.09) ng/mL PTH Intact (14.0-72.0) pg/mL 07/30/22 07/30/22 07/30/22 Range/Units 07:40 07:40 07:40 Plt Count 138 L (150-450) k/uL PT 29.0 H (9.0-12.0) sec INR 2.9 H (<1.2) BUN 55 H (7-17) mg/dL Creatinine 2.08 H (0.52-1.04) mg/dL Glucose 137 H (74-99) mg/dL POC Glucose (mg/dL) (70-110) mg/dL Ionized Calcium Luis E (4.5-5.3) mg/dL Total Bilirubin 1.7 H (0.2-1.3) mg/dL Alkaline Phosphatase 181 H (38-126) U/L Troponin I (0.000-0.034) ng/mL Total Protein 6.2 L (6.3-8.2) g/dL Total Protein (PEP) (6.2-8.2) g/dL Procalcitonin (0.02-0.09) ng/mL PTH Intact (14.0-72.0) pg/mL 07/30/22 Range/Units 11:35 Plt Count (150-450) k/uL PT (9.0-12.0) sec INR (<1.2) BUN (7-17) mg/dL Creatinine (0.52-1.04) mg/dL Glucose (74-99) mg/dL POC Glucose (mg/dL) 153 H (70-110) mg/dL Ionized Calcium Luis E (4.5-5.3) mg/dL Total Bilirubin (0.2-1.3) mg/dL Alkaline Phosphatase (38-126) U/L Troponin I (0.000-0.034) ng/mL Total Protein (6.3-8.2) g/dL Total Protein (PEP) (6.2-8.2) g/dL Procalcitonin (0.02-0.09) ng/mL PTH Intact (14.0-72.0) pg/mL Microbiology - Last 24 Hours (Table) 07/29/22 08:56 Urine Culture - Preliminary Urine,Voided
--- NOTE | 2022-07-30 13:11 | P.PN ---
Subjective Progress Note Date: 07/30/22 Progress note, date of service 07/30/[address] Chance Lopez [facility] Patient seen [id number] Patient this morning underwent parathyroid scan to rule out adenoma with the present of hypercalcemia and elevated parathyroid hormone. Ordered by Dr. Fried nephrology. Patient seen by Dr. Meraz cardiology as well as today with his PA cardiology. 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 Vital sign: Temperature 97.8 F oral, heart rate 89 with atrial fibrillation irregular irregularities with the AICD and underlying history of abnormal troponin elevation with the ejection fraction was questionable 20% and we did order for the echocardiogram today for evaluation with the underlying acute congestive heart failure on the top of chronic systolic and diastolic. Her blood pressure today 110/73 and the patient received midodrine per Dr. Daley, her oxygen saturation 98%. Her chest x-ray on admission showed effusion with decompensation with the her NT proBNP is significantly elevated as well as troponin on admission time 3. Patient's conscious alert oriented she denied any shortness of breath at this time Head was normocephalic and atraumatic and pupil was equal reactive conjunctiva was pink sclera was nonicteric Neck was supple no JVD no thyromegaly Chest she had basilar rales bilateral. Heart regular irregularities with the AICD and/pacemaker. Abdomen soft positive bowel sounds no organ enlargement Extremities positive pulses and probably trace edema to 1+ Psychiatry she has history of major depressive disorder and questionable bipolar however she stable at this time no agitation Neurological: No Lateralizing Sign no neuro deficit. Assessment #1 she has today the parathyroid scan rule out adenoma with the hypercalcemia and elevated parathyroid hormone to rule out primary hyperparathyroidism #2 chronic kidney disease stage IV #[address] Fried #4 ischemic cardiomyopathy #5 status post coronary bypass graft 5 #6 congestive heart failure acute on the top of chronic with the underlying impaired ejection fraction systolic and diastolic. #7 diabetes mellitus type 2 also was uncontrolled currently controlled with insulin to scale. #8 hypotension with the previous history of hypertension. #9 ischemic cardiomyopathy with abnormal troponin 3 Plan: #1 will follow the recommendation from cardiology #2 follow the recommendation from nephrology #3 continue the current treatment. Objective - Vital Signs Vital signs: Vital Signs Temp 97.8 F 07/30/22 09:47 Pulse 89 07/30/22 09:47 Resp 16 07/30/22 09:47 BP 110/73 07/30/22 09:47 Pulse Ox 98 07/30/22 09:47 FiO2 Intake & Output 07/29/22 07/30/22 07/30/22 18:59 06:59 18:59 Intake Total 598 120 Output Total 1 725 Balance 597 -725 120 Weight 69.6 kg 69.1 kg Intake: Oral 598 120 Output: Urine 1 725 Other: Voiding Method Toilet Toilet # Voids 1 - Labs CBC & Chem 7: 07/30/22 07:40 07/30/22 07:40 Labs: Abnormal Lab Results - Last 24 Hours (Table) 07/29/22 07/29/22 07/29/22 Range/Units 14:44 14:44 14:44 Plt Count (150-450) k/uL PT (9.0-12.0) sec INR (<1.2) BUN (7-17) mg/dL Creatinine (0.52-1.04) mg/dL Glucose (74-99) mg/dL POC Glucose (mg/dL) (70-110) mg/dL Ionized Calcium Luis E 5.8 H (4.5-5.3) mg/dL Total Bilirubin (0.2-1.3) mg/dL Alkaline Phosphatase (38-126) U/L Troponin I 0.094 H* (0.000-0.034) ng/mL Total Protein (6.3-8.2) g/dL Total Protein (PEP) (6.2-8.2) g/dL Procalcitonin (0.02-0.09) ng/mL PTH Intact 125.0 H (14.0-72.0) pg/mL 07/29/22 07/29/22 07/29/22 Range/Units 14:44 16:24 19:58 Plt Count (150-450) k/uL PT (9.0-12.0) sec INR (<1.2) BUN (7-17) mg/dL Creatinine (0.52-1.04) mg/dL Glucose (74-99) mg/dL POC Glucose (mg/dL) 146 H 145 H (70-110) mg/dL Ionized Calcium Luis E (4.5-5.3) mg/dL Total Bilirubin (0.2-1.3) mg/dL Alkaline Phosphatase (38-126) U/L Troponin I (0.000-0.034) ng/mL Total Protein (6.3-8.2) g/dL Total Protein (PEP) (6.2-8.2) g/dL Procalcitonin 0.21 H (0.02-0.09) ng/mL PTH Intact (14.0-72.0) pg/mL 07/30/22 07/30/22 07/30/22 Range/Units 05:53 07:40 07:40 Plt Count 138 L (150-450) k/uL PT (9.0-12.0) sec INR (<1.2) BUN (7-17) mg/dL Creatinine (0.52-1.04) mg/dL Glucose (74-99) mg/dL POC Glucose (mg/dL) 162 H (70-110) mg/dL Ionized Calcium Luis E (4.5-5.3) mg/dL Total Bilirubin (0.2-1.3) mg/dL Alkaline Phosphatase (38-126) U/L Troponin I (0.000-0.034) ng/mL Total Protein (6.3-8.2) g/dL Total Protein (PEP) 6.0 L (6.2-8.2) g/dL Procalcitonin (0.02-0.09) ng/mL PTH Intact (14.0-72.0) pg/mL 07/30/22 07/30/22 07/30/22 Range/Units 07:40 07:40 11:35 Plt Count (150-450) k/uL PT 29.0 H (9.0-12.0) sec INR 2.9 H (<1.2) BUN 55 H (7-17) mg/dL Creatinine 2.08 H (0.52-1.04) mg/dL Glucose 137 H (74-99) mg/dL POC Glucose (mg/dL) 153 H (70-110) mg/dL Ionized Calcium Luis E (4.5-5.3) mg/dL Total Bilirubin 1.7 H (0.2-1.3) mg/dL Alkaline Phosphatase 181 H (38-126) U/L Troponin I (0.000-0.034) ng/mL Total Protein 6.2 L (6.3-8.2) g/dL Total Protein (PEP) (6.2-8.2) g/dL Procalcitonin (0.02-0.09) ng/mL PTH Intact (14.0-72.0) pg/mL Microbiology - Last 24 Hours (Table) 07/29/22 08:56 Urine Culture - Preliminary Urine,Voided
[2022-07-30] MEDS: MIDODRINE 5 MG TAB PO SCH ×2 (13:33→17:42)
[2022-07-30 16:49] LABS: Glucose,Whole Blood 139 mg/dL (70-110)
[2022-07-30] MEDS ORDERED: WARFARIN 0.5 MG TAB PO ONE (18:00)
[2022-07-30 20:24] LABS: Glucose,Whole Blood 138 mg/dL (70-110)
[2022-07-30] MEDS: OXYBUTYNIN XL 5 MG TAB.ER.24 PO SCH (21:03)
[2022-07-30] MEDS: ATORVASTATIN 80 MG TAB PO SCH (21:04)
[2022-07-30] MEDS: lamoTRIgine 100 MG TAB PO SCH (21:04)
[2022-07-30] MEDS ORDERED: SENNOSIDES-DOCUSATE SODIUM 1 EACH TAB PO STA (22:01)
--- NOTE | 2022-07-30 22:41 | NM ---
EXAMINATION TYPE: NM parathyroid w/spect DATE OF EXAM: 07/30/2022 COMPARISON: NONE HISTORY: Hypercalcemia. TECHNIQUE: Following administration of 24.8 mCi Tc99m Sestamibi. Anterior projection images of the neck and ches t were obtained 10 minutes and 3 hours post injection. SPECT images of the neck and chest were obtai efrain and reconstructed in three axes. FINDINGS: Thyroid tracer washout: Delayed images demonstrate near-complete tracer washout from the thyroid. Parathyroid uptake: The delayed images demonstrate focal abnormal persistent uptake in the region of the upper aspect right thyroid lobe suspicious for focal parathyroid adenoma. Normal uptake: There is physiological tracer uptake in the salivary glands and visualized portion of the myocardium. IMPRESSION: Nuclear findings suggests focal parathyroid adenoma at the level of the upper pole right thyroid lobe. Consider ultrasound follow-up to further evaluate.
[2022-07-31 06:03] LABS: Glucose,Whole Blood 111 mg/dL (70-110)
[2022-07-31] MEDS: INSULIN ASPART (NovoLOG) 100 UNIT/ML VIAL SQ SCH ×3 (06:33→17:00)
[2022-07-31] MEDS: MIDODRINE 5 MG TAB PO SCH ×3 (06:53→17:02)
[2022-07-31 07:52] LABS: INR 2.4 (<1.2); Prothrombin Time 23.8 sec (9.0-12.0)
[2022-07-31 08:05] LABS: Albumin 3.5 g/dL (3.5-5.0); Calcium 10.1 mg/dL (8.4-10.2); Potassium 3.7 mmol/L (3.5-5.1); Total Bilirubin 1.4 mg/dL (0.2-1.3); Total Protein 6.3 g/dL (6.3-8.2)
[2022-07-31] MEDS ORDERED: ALBUMIN HUMAN 25% 50 ML in EMPTY BAG 1 BAG IVPB SCH (10:00)
[2022-07-31] MEDS ORDERED: POTASSIUM CHLORIDE ER 20 MEQ TAB.ER PO STA (10:04)
--- NOTE | 2022-07-31 10:04 | P.PN ---
Subjective Patient is seen in follow-up for chronic kidney disease. Renal function stable. Has been voiding. Hemodynamically stable. No chest pain or shortness of breath. No vomiting or diarrhea. On room air. Feels weak. Vital signs are stable. General: Awake. No acute distress. HEENT: Head exam is unremarkable. LUNGS: Breath sounds decreased. HEART: Rate and Rhythm are regular. ABDOMEN: Soft, no distention. EXTREMITITES: No edema. Objective - Vital Signs Vital signs: Vital Signs Temp 97.8 F 07/31/22 03:45 Pulse 84 07/31/22 03:45 Resp 18 07/31/22 03:45 BP 107/71 07/31/22 03:45 Pulse Ox 97 07/31/22 03:45 FiO2 Intake & Output 07/30/22 07/31/22 07/31/22 18:59 06:59 18:59 Intake Total 240 0 Output Total 250 650 Balance -10 -650 0 Weight 68.8 kg Intake: Oral 240 0 Output: Urine 250 650 Other: Voiding Method Toilet Toilet # Voids 1 - Labs CBC & Chem 7: 07/30/22 07:40 07/31/22 07:17 Labs: Abnormal Lab Results - Last 24 Hours (Table) 07/30/22 07/30/22 07/30/22 Range/Units 07:40 11:35 16:47 PT (9.0-12.0) sec INR (<1.2) BUN (7-17) mg/dL Creatinine (0.52-1.04) mg/dL Glucose (74-99) mg/dL POC Glucose (mg/dL) 153 H 139 H (70-110) mg/dL Total Bilirubin (0.2-1.3) mg/dL Alkaline Phosphatase (38-126) U/L Total Protein (PEP) 6.0 L (6.2-8.2) g/dL 07/30/22 07/31/22 07/31/22 Range/Units 20:22 06:01 07:17 PT (9.0-12.0) sec INR (<1.2) BUN 53 H (7-17) mg/dL Creatinine 2.05 H (0.52-1.04) mg/dL Glucose 118 H (74-99) mg/dL POC Glucose (mg/dL) 138 H 111 H (70-110) mg/dL Total Bilirubin 1.4 H (0.2-1.3) mg/dL Alkaline Phosphatase 187 H (38-126) U/L Total Protein (PEP) (6.2-8.2) g/dL 07/31/22 Range/Units 07:17 PT 23.8 H (9.0-12.0) sec INR 2.4 H (<1.2) BUN (7-17) mg/dL Creatinine (0.52-1.04) mg/dL Glucose (74-99) mg/dL POC Glucose (mg/dL) (70-110) mg/dL Total Bilirubin (0.2-1.3) mg/dL Alkaline Phosphatase (38-126) U/L Total Protein (PEP) (6.2-8.2) g/dL Microbiology - Last 24 Hours (Table) 07/29/22 08:56 Urine Culture - Final Urine,Voided 07/29/22 15:19 Blood Culture - Preliminary Blood No Growth after 24 hours 07/29/22 14:44 Blood Culture - Preliminary Blood No Growth after 24 hours 07/29/22 12:32 Blood Culture - Preliminary Blood No Growth after 24 hours 07/29/22 12:28 Blood Culture - Preliminary Blood No Growth after 24 hours Assessment and Plan Plan: Assessment: 1. Chronic kidney disease stage IV secondary to diabetic kidney disease and cardiorenal syndrome with baseline creatinine near 2. 2. Acute on chronic systolic CHF. 3. Coronary artery disease status post CABG. 4. Hypercalcemia with concern for primary hyperparathyroidism. Status post pamidronate given 07/29/2022. Also on diuretic. Improved. PTH 125. TSH normal. Vitamin D 31. Parathyroid nuclear scan does show focal parathyroid adenoma. 5. Diabetes mellitus. 6. UTI on antibiotics. Plan: Maintain oral Bumex. Follow-up pending workup for hypercalcemia. Patient will need to follow-up with endocrinology outpatient for further workup of the parathyroid adenoma. Parathyroidectomy may be considered as well. Add Sensipar 30 mg once a week for now. PTH is elevated at 125 which is due to concern for primary hyperparathyroidism as well as the underlying chronic kidney disease. Maintain midodrine. Hold for systolic blood pressure greater than 110. Continue to monitor renal function and urine output. Avoid nephrotoxins.
[2022-07-31] MEDS: PARoxetine 10 MG TAB PO SCH (10:19)
[2022-07-31] MEDS: LOSARTAN 25 MG TAB PO SCH (10:19)
[2022-07-31] MEDS: METOPROLOL SUCCINATE (ER) 50 MG TAB.ER.24H PO SCH (10:19)
[2022-07-31] MEDS: MEMANTINE 10 MG TAB PO SCH ×2 (10:19→20:04)
[2022-07-31] MEDS: BUMETANIDE 0.5 MG TABLET PO SCH (10:20)
[2022-07-31 11:39] LABS: Glucose,Whole Blood 204 mg/dL (70-110)
--- NOTE | 2022-07-31 13:05 | P.PN ---
Subjective Progress Note Date: 07/31/22 Progress note Date of service 07/31/2022 Dictation by Calvin Mcdaniel. [facility]. Patient seen today [id number] by myself and discussed with Lois RIVERA in detail Cardiology was consulted with the underlying elevated troponin first 0.055, second 0.068, third 0.094 with the trend is worsening Also her NT proBNP natruretic peptide initially was 25 900 and on repeat 1900 with a progressively elevated. Her pro-calcitonin was elevated 0.21 and a normal range 0.020.09. Urine analysis on admission was cloudy 2+ protein small blood and large leukocyte esterase urine culture indicating 50,000-100,000 genital renae And blood culture was negative. With the above findings possibility patient received antibiotic before the urine culture collected. Because of the presence of leukocytosis on the time of admission and elevated pro-calcitonin. Patient treated with the antibiotic on the , , 30 which is today will be repeat UA and culture and sensitivity if it is negative we'll discontinue the antibiotic. Chest x-ray on admission, small bilateral pleural effusion, atelectasis, right sided rib fracture. With elevated NT proBNP with the presence of acute congestive heart failure on the top of chronic with impaired ejection fraction however echocardiogram was not done and we don't received yet the results but mention by the nurse practitioner without having a copy of the apical done previously on the chart. And we don't have clear evidence by the test results. In regard of troponin which mentioned above, we don't have from cardiology for nurse practitioner follow with the senior dynamics crm developer what is the reason for elevation of the troponin and if this is due to what atherogenesis. Her cardiology o gloria, isn't 90 STEMI SD or other etiology was not explained by cardiology and we don't have the results of the echocardiogram which stated that was done yesterday but we don't have results yet today. Patient seen [id number], complained of tiredness fatigued still short of breath, nursing staff stated that the cardiology sign off, without explaining if any for further treatment needed or the reason for elevation of troponin. And we don't have the echocardiogram results yet Her temperature 97.1 F oral her pulse rate 79 respiratory rate 18 and blood pressure 108/59 with a mean blood pressure 75 and oxygen saturation 93 today earlier was 96. On exam: Patient conscious alert oriented 3 able to state her complain was still short of breath and fatigued. Oropharynx was negative Neck was supple no JVD no thyromegaly no lymphadenopathy trachea midline. She had the nuclear scan for parathyroid adenoma which was positive and they recommended ultrasound of the thyroid and the parathyroid which is ordered. Chest she has basilar rales bilateral not resulted yet and I did order a chest x-ray for follow-up. Heart: irregular and the patient had AICD with the underlying ischemic cardiomyopathy no acute and arrhythmias. Abdomen soft positive bowel sounds no organ enlargement. Extremities no edema positive pulses. Neurologically stable Psychiatric stable with the underlying major depressive disorder on the medication and stable Assessment: #1 acute congestive heart failure on the top of chronic #2 coronary artery bypass graft 5 #3 ischemic cardiomyopathy however the ejection fraction and determined until we receive the results of the echocardiogram #4 chronic kidney disease stage IV #5 hypercalcemia with elevated parathyroid hormone suggestive of adenoma of the parathyroid with the possibility of adenoma by parathyroid nuclear scan ordered by Dr. Fried. #6 UTI under current treatment. #7 elevated troponin on admission and we don't have an explanation from the cardiology group. Plan: #1 chest x-ray PA and lateral #2 repeat UA culture and sensitivity #3 clarification from cardiology in regard of elevated troponin and however the again explained these results #4 waiting for the results of the echocardiogram which is done but no report according to the computer. #5 up and ambulation #6 physical therapy. #7 repeat pro-BMP #8 also clearance from cardiology and nephrology for this discharge probably in the next 24-48 hours if she stable Objective - Vital Signs Vital signs: Vital Signs Temp 97.1 F L 07/31/22 11:32 Pulse 79 07/31/22 11:32 Resp 18 07/31/22 11:32 BP 108/59 07/31/22 11:32 Pulse Ox 93 L 07/31/22 11:32 FiO2 Intake & Output 07/30/22 07/31/22 07/31/22 18:59 06:59 18:59 Intake Total 240 0 Output Total 250 650 200 Balance -10 -650 -200 Weight 68.8 kg Intake: Oral 240 0 Output: Urine 250 650 200 Other: Voiding Method Toilet Toilet # Voids 1 - Labs CBC & Chem 7: 07/30/22 07:40 07/31/22 07:17 Labs: Abnormal Lab Results - Last 24 Hours (Table) 07/30/22 07/30/22 07/31/22 Range/Units 16:47 20:22 06:01 PT (9.0-12.0) sec INR (<1.2) BUN (7-17) mg/dL Creatinine (0.52-1.04) mg/dL Glucose (74-99) mg/dL POC Glucose (mg/dL) 139 H 138 H 111 H (70-110) mg/dL Total Bilirubin (0.2-1.3) mg/dL Alkaline Phosphatase (38-126) U/L 07/31/22 07/31/22 07/31/22 Range/Units 07:17 07:17 11:38 PT 23.8 H (9.0-12.0) sec INR 2.4 H (<1.2) BUN 53 H (7-17) mg/dL Creatinine 2.05 H (0.52-1.04) mg/dL Glucose 118 H (74-99) mg/dL POC Glucose (mg/dL) 204 H (70-110) mg/dL Total Bilirubin 1.4 H (0.2-1.3) mg/dL Alkaline Phosphatase 187 H (38-126) U/L Microbiology - Last 24 Hours (Table) 07/29/22 08:56 Urine Culture - Final Urine,Voided 07/29/22 15:19 Blood Culture - Preliminary Blood No Growth after 24 hours 07/29/22 14:44 Blood Culture - Preliminary Blood No Growth after 24 hours 07/29/22 12:32 Blood Culture - Preliminary Blood No Growth after 24 hours 07/29/22 12:28 Blood Culture - Preliminary Blood No Growth after 24 hours
--- NOTE | 2022-07-31 13:11 | XR ---
EXAMINATION TYPE: XR chest 2V DATE OF EXAM: 07/31/2022 COMPARISON: 07/29/2022 TECHNIQUE: PA and lateral views submitted. HISTORY: Follow-up abnormal x-ray for pleural effusion FINDINGS: Postsurgical changes cardiac device noted and there are small bilateral pleural effusions and basilar consolidation greater on the right. No sizable pneumothorax. Rib deformities are stable. Correlate f or underlying COPD. Degenerative change of the spine. IMPRESSION: 1. Bilateral infiltrate and pleural effusion stable. Correlate for prior rib fracture. No definite si zable pneumothorax. 2. COPD correlate for chronic interstitial lung disease mild superimposed venous congestion not exclu ded.
[2022-07-31 14:27] LABS: Albumin 3.28 g/dL (3.80-4.90); Gamma Globulin 0.88 g/dL (0.70-1.50)
[2022-07-31 16:42] LABS: Glucose,Whole Blood 86 mg/dL (70-110)
--- NOTE | 2022-07-31 16:56 | CT ---
EXAMINATION TYPE: CT chest wo con DATE OF EXAM: 07/31/2022 COMPARISON: None HISTORY: Difficulty breathing CT DLP: 249.2 mGycm Automated exposure control for dose reduction was used. Images obtained from the thoracic inlet to the diaphragm with no contrast. There is moderate bilateral pleural effusions. Heart is enlarged. There is coarsening of the intersti tial markings. There is some atelectasis at the lung bases. No pericardial effusion. There is no medi astinal adenopathy. There are a few mediastinal lymph nodes measuring up to 8 mm thick there are no h ilar masses. Thoracic aorta is atheromatous. No aneurysm. There is some coronary artery calcification . IMPRESSION: Moderate cardiomegaly. Pleural effusions and coarse interstitial density could relate to some chronic congestive heart failure. Atherosclerotic vascular disease. No suspicious pulmonary mass. There is p robably some underlying pulmonary interstitial fibrosis.
[2022-07-31] MEDS ORDERED: SODIUM CHLORIDE 0.9% 500 ML 250 ML IV ONE (16:57)
[2022-07-31] MEDS ORDERED: DEXTROSE 5% IN WATER 100 ML with AMIODARONE 150 MG IV ONE (17:00)
--- NOTE | 2022-07-31 17:08 | P.EN ---
Rapid response was called on patient for complaints of difficulty in breathing and rapid heart rate. -Patient's heart rate on telemetry appeared to be in atrial fibrillation with RVR with heart rate greater than 140. -Patient was started on amiodarone bolus of 150 with continuous gtt. -Patient was also given a 250 mL bolus of IV fluids normal saline due to hypotension. -Stat labs CBC, CMP, BNP, mag, troponin ordered -Chest x-ray reviewed Physical exam: Vitals reviewed Gen.: Alert and oriented 3 mild distress respiratory Lungs: Clear to auscultation bilateral Heart: Irregularly irregular Abdomen: Soft nontender nondistended Assessment: Atrial fibrillation with RVR -Patient started on amiodarone gtt. with bolus -Stat labs ordered -Echocardiogram that was completed today is pending -Cardiology is on consult
[2022-07-31] MEDS ORDERED: AMIODARONE 360 MG in DEXTROSE 5% IN WATER 200 ML IV ONE ×2 (17:10)
[2022-07-31 17:20] LABS: Basophils # (A) 0.2 k/uL (0-0.2); Basophils % (A) 2 %; Eosinophils # (A) 0.2 k/uL (0-0.7); Eosinophils % (A) 2 %; HCT 48.1 % (34.0-46.0); HGB 14.9 gm/dL (11.4-16.0); Hypochromasia Moderate; Lymphocytes # (A) 2.4 k/uL (1.0-4.8); Lymphocytes % (A) 26 %; MCH 29.3 pg (25.0-35.0); MCV 94.7 fL (80.0-100.0); Mean Platelet Volume 8.4; Monocytes # (A) 0.6 k/uL (0-1.0); Monocytes % (A) 6 %; Neutrophils # (A) 5.5 k/uL (1.3-7.7); Neutrophils % (A) 60 %; Platelet Count 182 k/uL (150-450); RBC 5.08 m/uL (3.80-5.40); RDW 15.5 % (11.5-15.5); WBC 9.1 k/uL (3.8-10.6)
[2022-07-31 17:33] LABS: Albumin 3.6 g/dL (3.5-5.0); Calcium 9.7 mg/dL (8.4-10.2); Potassium 3.8 mmol/L (3.5-5.1); Total Bilirubin 1.1 mg/dL (0.2-1.3); Total Protein 6.4 g/dL (6.3-8.2)
[2022-07-31] MEDS ORDERED: WARFARIN 2 MG TAB PO ONE (18:00)
--- NOTE | 2022-07-31 19:09 | US ---
EXAMINATION TYPE: US thyroid st tissue head/neck DATE OF EXAM: 07/31/2022 COMPARISON: NONE CLINICAL HISTORY: parathyroid. Parathyroid GLAND SIZE: Right Lobe: 4.2 x 2.0 x 1.2 cm Overall Parenchyma: heterogenous Left Lobe: 4.5 x 1.3 x 1.3 cm Overall Parenchyma: heterogeneous Isthmus Thickness: 0.3 cm NODULES RIGHT: # of nodules measured on right: 1 1. 1.5 X 0.9 x 0.8 cm, upper TIRADS Score: 3 TIRADS Category 3: Mildly Suspicious Composition: Solid or almost completely solid (2 points). Echogenicity: Hyperechoic or isoechoic (1 point). Shape: Wider than tall (0 points). Margin: Ill-defined (0 points). Echogenic foci: None or large comet-tail artifacts (0 points) Recommendation: If >2.5cm: FNA; If >1.5cm: Follow up at 1,3,5 years Hypoechoic lesion oval area seen inferior to right thyroid measuring approximately 0.9 x 1.4 x 1.2 cm Multiple subcentimeter nodules seen largest measured LEFT: # of nodules measured on left: 1 1. 1.5 x 1.0x 1.2 cm, lower mid, TIRADS Score: 0 TIRADS Category 1: Benign Composition: Spongiform (0 points). Recommendation: No FNA ISTHMUS: # of nodules measured in the isthmus: 0 Bilateral neck scanned, no evidence of lymphadenopathy. IMPRESSION: 1. Findings suggestive of right inferior parathyroid adenoma as seen on prior nuclear medicine scan. 2. Thyroid nodules and recommendations as described above, one of which each criteria for for follow -up. 2017 ACR TI-RADS LEVEL: TR-RADS 3 - Mildly Suspicious: Follow if > 1.5 cm, FNA if > 2.5 cm *Highest TI-RADS level nodule reported
[2022-07-31] MEDS: lamoTRIgine 100 MG TAB PO SCH (20:03)
[2022-07-31] MEDS: OXYBUTYNIN XL 5 MG TAB.ER.24 PO SCH (20:04)
[2022-07-31] MEDS: ATORVASTATIN 80 MG TAB PO SCH (20:04)
[2022-07-31 20:08] LABS: Glucose,Whole Blood 143 mg/dL (70-110)
[2022-07-31 22:53] LABS: Appearance,Urine Cloudy (Clear); Bacteria,Urine Rare /hpf; Bilirubin,Urine Negative (Negative); Blood,Urine Trace (Negative); Color,Urine Yellow; Glucose,Urine (UA) Negative (Negative); Hyaline Casts,Urine 15 /lpf (0-2); Ketones,Urine Negative (Negative); Leukocyte Esterase,Urine Moderate (Negative); Mucus,Urine Rare /hpf; Nitrite,Urine Negative (Negative); PH, Urine 5.5 (5.0-8.0); Protein,Urine 3+ (Negative); RBC,Urine 3 /hpf (0-5); Specific Gravity,Urine 1.018 (1.001-1.035); Squamous Epithelial Cell,Urine 3 /hpf (0-4); WBC,Urine 14 /hpf (0-5)
[2022-07-31] MEDS: AMIODARONE 450 MG in DEXTROSE 5% IN WATER 250 ML IV SCH ×2 (23:30)
[2022-08-01 06:08] LABS: Glucose,Whole Blood 123 mg/dL (70-110)
[2022-08-01] MEDS: INSULIN ASPART (NovoLOG) 100 UNIT/ML VIAL SQ SCH ×3 (06:24→16:51)
[2022-08-01] MEDS: MIDODRINE 5 MG TAB PO SCH ×3 (06:30→16:55)
[2022-08-01 07:58] LABS: INR 2.2 (<1.2); Prothrombin Time 22.3 sec (9.0-12.0)
[2022-08-01 08:10] LABS: Albumin 3.3 g/dL (3.5-5.0); Calcium 9.3 mg/dL (8.4-10.2); Magnesium 2.1 mg/dL (1.6-2.3); Potassium 3.9 mmol/L (3.5-5.1)
--- NOTE | 2022-08-01 09:15 | P.PN ---
Subjective Patient is seen in follow-up for chronic kidney disease. Renal function a little worse today. Patient wanted A. fib with RVR yesterday and is currently maintained on amiodarone drip. Denies chest pain or shortness of breath. Admits to good urine output. Vital signs are stable. General: Awake. No acute distress. HEENT: Head exam is unremarkable. LUNGS: Breath sounds decreased. HEART: Rate and Rhythm are regular. ABDOMEN: Soft, no distention. EXTREMITITES: No edema. Objective - Vital Signs Vital signs: Vital Signs Temp 97.1 F L 08/01/22 07:41 Pulse 72 08/01/22 08:17 Resp 17 08/01/22 08:17 BP 121/65 08/01/22 07:41 Pulse Ox 98 08/01/22 07:41 FiO2 Intake & Output 07/31/22 08/01/22 08/01/22 18:59 06:59 18:59 Intake Total 0 Output Total 500 Balance -500 Intake: Oral 0 Output: Urine 500 Other: Voiding Method Toilet Toilet # Voids 2 - Labs CBC & Chem 7: 07/31/22 17:08 08/01/22 07:17 Labs: Abnormal Lab Results - Last 24 Hours (Table) 07/30/22 07/31/22 07/31/22 Range/Units 07:40 11:38 12:36 Hct (34.0-46.0) % PT (9.0-12.0) sec INR (<1.2) Carbon Dioxide (22-30) mmol/L BUN (7-17) mg/dL Creatinine (0.52-1.04) mg/dL Glucose (74-99) mg/dL POC Glucose (mg/dL) 204 H (70-110) mg/dL AST (14-36) U/L Alkaline Phosphatase (38-126) U/L Troponin I 0.042 H* (0.000-0.034) ng/mL Albumin (3.5-5.0) g/dL Albumin (PEP) 3.28 L (3.80-4.90) g/dL Urine Appearance (Clear) Urine Protein (Negative) Urine Blood (Negative) Ur Leukocyte Esterase (Negative) Urine WBC (0-5) /hpf Urine Bacteria (None) /hpf Hyaline Casts (0-2) /lpf Urine Mucus (None) /hpf 07/31/22 07/31/22 07/31/22 Range/Units 17:08 17:08 17:08 Hct 48.1 H (34.0-46.0) % PT (9.0-12.0) sec INR (<1.2) Carbon Dioxide 18 L (22-30) mmol/L BUN 53 H (7-17) mg/dL Creatinine 2.09 H (0.52-1.04) mg/dL Glucose 123 H (74-99) mg/dL POC Glucose (mg/dL) (70-110) mg/dL AST 45 H (14-36) U/L Alkaline Phosphatase 176 H (38-126) U/L Troponin I 0.046 H* (0.000-0.034) ng/mL Albumin (3.5-5.0) g/dL Albumin (PEP) (3.80-4.90) g/dL Urine Appearance (Clear) Urine Protein (Negative) Urine Blood (Negative) Ur Leukocyte Esterase (Negative) Urine WBC (0-5) /hpf Urine Bacteria (None) /hpf Hyaline Casts (0-2) /lpf Urine Mucus (None) /hpf 07/31/22 07/31/22 08/01/22 Range/Units 20:06 22:09 06:07 Hct (34.0-46.0) % PT (9.0-12.0) sec INR (<1.2) Carbon Dioxide (22-30) mmol/L BUN (7-17) mg/dL Creatinine (0.52-1.04) mg/dL Glucose (74-99) mg/dL POC Glucose (mg/dL) 143 H 123 H (70-110) mg/dL AST (14-36) U/L Alkaline Phosphatase (38-126) U/L Troponin I (0.000-0.034) ng/mL Albumin (3.5-5.0) g/dL Albumin (PEP) (3.80-4.90) g/dL Urine Appearance Cloudy H (Clear) Urine Protein 3+ H (Negative) Urine Blood Trace H (Negative) Ur Leukocyte Esterase Moderate H (Negative) Urine WBC 14 H (0-5) /hpf Urine Bacteria Rare H (None) /hpf Hyaline Casts 15 H (0-2) /lpf Urine Mucus Rare H (None) /hpf 08/01/22 08/01/22 Range/Units 07:17 07:17 Hct (34.0-46.0) % PT 22.3 H (9.0-12.0) sec INR 2.2 H (<1.2) Carbon Dioxide (22-30) mmol/L BUN 56 H (7-17) mg/dL Creatinine 2.21 H (0.52-1.04) mg/dL Glucose 126 H (74-99) mg/dL POC Glucose (mg/dL) (70-110) mg/dL AST (14-36) U/L Alkaline Phosphatase (38-126) U/L Troponin I (0.000-0.034) ng/mL Albumin 3.3 L (3.5-5.0) g/dL Albumin (PEP) (3.80-4.90) g/dL Urine Appearance (Clear) Urine Protein (Negative) Urine Blood (Negative) Ur Leukocyte Esterase (Negative) Urine WBC (0-5) /hpf Urine Bacteria (None) /hpf Hyaline Casts (0-2) /lpf Urine Mucus (None) /hpf Microbiology - Last 24 Hours (Table) 07/29/22 15:19 Blood Culture - Preliminary Blood No Growth after 48 hours 07/29/22 14:44 Blood Culture - Preliminary Blood No Growth after 48 hours 07/29/22 12:28 Blood Culture - Preliminary Blood No Growth after 48 hours 07/29/22 12:32 Blood Culture - Preliminary Blood No Growth after 48 hours Assessment and Plan Plan: Assessment: 1. Chronic kidney disease stage IV secondary to diabetic kidney disease and cardiorenal syndrome with baseline creatinine near 2. 2. Acute on chronic systolic CHF. 3. Coronary artery disease status post CABG. 4. Hypercalcemia with concern for primary hyperparathyroidism. Status post pamidronate given 07/29/2022. Also on diuretic. Improved. PTH 125. TSH normal. Vitamin D 31. Parathyroid nuclear scan does show focal parathyroid adenoma. No monoclonality noted on serum immunofixation. 5. Diabetes mellitus. 6. UTI on antibiotics. 7. Acute kidney injury mostly prerenal secondary to hemodynamic instability. Creatinine 2.21 today. Plan: Maintain oral Bumex. Patient will need to follow-up with endocrinology outpatient for further workup of the parathyroid adenoma. Parathyroidectomy may be considered as well. Maintain Sensipar 30 mg once a week for now. PTH is elevated at 125 which is due to concern for primary hyperparathyroidism as well as the underlying chronic kidney disease. Maintain midodrine. Hold for systolic blood pressure greater than 110. Continue to monitor renal function and urine output. Avoid nephrotoxins.
[2022-08-01] MEDS: BUMETANIDE 0.5 MG TABLET PO SCH (11:06)
[2022-08-01] MEDS: LOSARTAN 25 MG TAB PO SCH (11:09)
[2022-08-01] MEDS: MEMANTINE 10 MG TAB PO SCH ×2 (11:10→20:06)
[2022-08-01] MEDS: METOPROLOL SUCCINATE (ER) 50 MG TAB.ER.24H PO SCH (11:11)
[2022-08-01] MEDS: PARoxetine 10 MG TAB PO SCH (11:11)
[2022-08-01] MEDS: AMIODARONE 200 MG TAB PO SCH ×2 (11:31→20:06)
[2022-08-01 11:34] LABS: Glucose,Whole Blood 191 mg/dL (70-110)
--- NOTE | 2022-08-01 13:00 | P.PN ---
Subjective Progress Note Date: 08/01/22 (Acute episode of RVR with the heart rate) Progress note Date of service 08/[address] Saray M.D. [facility] Patient experience festinate atrial fib 140 with atrial fibrillation the called [address] Juarez started the patient on amiodarone drip, and patient at that time hypotensive. I did see the patient at noontime yesterday on the 2021 and the 30 consult cardiology doctor the decided to sign off with the reason of her congestive heart failure and the troponin has been persistently elevated and we don't have no explanation indurate note to indicate isn't acute non-STEMI IL however EKG could not be adequately coumadinized with the AICD. Patient today started on oral amiodarone. She is monitored by the pharmacy for anticoagulation and her INR 2.2 stable. Diabetes mellitus fairly well controlled with the use of insulin to scale added to her oral hypoglycemic agent no evidence of hypoglycemia Patient underwent ultrasound of the thyroid and parathyroid which indicating pa rathyroid adenoma on the right side as well as she had nuclear scan for the parathyroid as well added to her hypercalcemia on admission with the elevated parathyroid hormone suggestive of primary hyperparathyroidism. Patient had history of urinary tract infection on antibiotic and repeat culture was ordered. And urine analysis on 07/31/2022 indicating moderate leukocytes cloudy urine and 3+ protein WBC 14 and waiting for the culture finalized again although she is on antibiotic IV. Chronic kidney disease stage IV Chest x-ray indicating chronic pulmonary fibrosis, computed tomography scan of t he chest was obtained and the impression by the radiologist moderate cardiomegaly, pleural effusion, coarse interstitial density could be related to to some of chronic congestive heart failure. Atherosclerotic vascular disease, no suspicious of pulmonary mass, there is probably some underlying all Bill interstitial fibrosis. Today on seeing the patient in [id number] temperature 97.7 oral F her heart rate ranging between 56-60, respiratory rate 17-18 nonlabored, her blood pressure ranging between 103/68-99/65. Oxygen saturation 98% on 2 L nasal cannula. On exam: Patient conscious alert oriented able to communicate freely currently heart rate is stable and neck was supple, able to eat and swallow normally Chest she had lower lung field crackles and rales assumed with the chronic alison estive heart failure Heart irregular irregularity underlying atrial fibrillation chronic on Coumadin therapy with the acute episode of RVR 1 40 bpm lost night. Reviewing of the troponin was done 5 times and all was elevated and we are requesting from the cardiology to clarify the issue of elevated troponin persistently elevated non-STEMI IL or other etiology from the cardiology point of view Abdomen soft positive bowel sounds. Extremities no edema. Pulses Psychiatry currently stable on her current medication Neurologically stable no lateralizing sign. Assessment #1 atrial fib with RVR 140 on oral amiodarone. Cardiology. #2 hypotension cardiology monitoring #3 chronic kidney disease stage IV #4 resistant elevation of troponin the clear etiology was not clarified by the cardiology yet #5 status post 5 coronary artery bypass graft. #6 echocardiogram which was ordered on admission, not available, questionable not done, questionable not read yet and we don't have the input from cardiology. #7 acute congestive heart failure biventricular on the top of chronic. #8 primary hyperparathyroidism with also bone mineral disease and history of right lower lip rehab fraction. Plan: #1 requesting the results of the echo if was done or obtaining the echocardiogram if was not done. #2 cardiology reconsult with the underlying episodic atrial septal with a rapid ventricular response as occurred lost night. #3 for for evaluation of parathyroid nodule as outpatient as recommended by Dr. Fried nephrology. #4 waiting for the results of the urine culture. #5 continue the cardiology management. And nephrology management Objective - Vital Signs Vital signs: Vital Signs Temp 97.1 F L 08/01/22 07:41 Pulse 72 08/01/22 08:17 Resp 17 08/01/22 08:17 BP 121/65 08/01/22 07:41 Pulse Ox 97 08/01/22 11:33 FiO2 Intake & Output 07/31/22 08/01/22 08/01/22 18:59 06:59 18:59 Intake Total 0 200.56 Output Total 500 100 Balance -500 100.56 Intake: Intake, IV Titration 200.56 Amount Amiodarone 450 mg In 200.56 Dextrose 5% in Water 250 ml @ 0.5 MG/MIN 16.667 mls/hr IV .Q15H ANGIE Rx#: [id number] Oral 0 Output: Urine 500 100 Other: Voiding Method Toilet Toilet Toilet # Voids 2 - Labs CBC & Chem 7: 07/31/22 17:08 08/01/22 07:17 Labs: Abnormal Lab Results - Last 24 Hours (Table) 07/30/22 07/31/22 07/31/22 Range/Units 07:40 12:36 17:08 Hct (34.0-46.0) % PT (9.0-12.0) sec INR (<1.2) Carbon Dioxide 18 L (22-30) mmol/L BUN 53 H (7-17) mg/dL Creatinine 2.09 H (0.52-1.04) mg/dL Glucose 123 H (74-99) mg/dL POC Glucose (mg/dL) (70-110) mg/dL AST 45 H (14-36) U/L Alkaline Phosphatase 176 H (38-126) U/L Troponin I 0.042 H* (0.000-0.034) ng/mL Albumin (3.5-5.0) g/dL Albumin (PEP) 3.28 L (3.80-4.90) g/dL Urine Appearance (Clear) Urine Protein (Negative) Urine Blood (Negative) Ur Leukocyte Esterase (Negative) Urine WBC (0-5) /hpf Urine Bacteria (None) /hpf Hyaline Casts (0-2) /lpf Urine Mucus (None) /hpf 07/31/22 07/31/22 07/31/22 Range/Units 17:08 17:08 20:06 Hct 48.1 H (34.0-46.0) % PT (9.0-12.0) sec INR (<1.2) Carbon Dioxide (22-30) mmol/L BUN (7-17) mg/dL Creatinine (0.52-1.04) mg/dL Glucose (74-99) mg/dL POC Glucose (mg/dL) 143 H (70-110) mg/dL AST (14-36) U/L Alkaline Phosphatase (38-126) U/L Troponin I 0.046 H* (0.000-0.034) ng/mL Albumin (3.5-5.0) g/dL Albumin (PEP) (3.80-4.90) g/dL Urine Appearance (Clear) Urine Protein (Negative) Urine Blood (Negative) Ur Leukocyte Esterase (Negative) Urine WBC (0-5) /hpf Urine Bacteria (None) /hpf Hyaline Casts (0-2) /lpf Urine Mucus (None) /hpf 07/31/22 08/01/22 08/01/22 Range/Units 22:09 06:07 07:17 Hct (34.0-46.0) % PT (9.0-12.0) sec INR (<1.2) Carbon Dioxide (22-30) mmol/L BUN 56 H (7-17) mg/dL Creatinine 2.21 H (0.52-1.04) mg/dL Glucose 126 H (74-99) mg/dL POC Glucose (mg/dL) 123 H (70-110) mg/dL AST (14-36) U/L Alkaline Phosphatase (38-126) U/L Troponin I (0.000-0.034) ng/mL Albumin 3.3 L (3.5-5.0) g/dL Albumin (PEP) (3.80-4.90) g/dL Urine Appearance Cloudy H (Clear) Urine Protein 3+ H (Negative) Urine Blood Trace H (Negative) Ur Leukocyte Esterase Moderate H (Negative) Urine WBC 14 H (0-5) /hpf Urine Bacteria Rare H (None) /hpf Hyaline Casts 15 H (0-2) /lpf Urine Mucus Rare H (None) /hpf 08/01/22 08/01/22 Range/Units 07:17 11:30 Hct (34.0-46.0) % PT 22.3 H (9.0-12.0) sec INR 2.2 H (<1.2) Carbon Dioxide (22-30) mmol/L BUN (7-17) mg/dL Creatinine (0.52-1.04) mg/dL Glucose (74-99) mg/dL POC Glucose (mg/dL) 191 H (70-110) mg/dL AST (14-36) U/L Alkaline Phosphatase (38-126) U/L Troponin I (0.000-0.034) ng/mL Albumin (3.5-5.0) g/dL Albumin (PEP) (3.80-4.90) g/dL Urine Appearance (Clear) Urine Protein (Negative) Urine Blood (Negative) Ur Leukocyte Esterase (Negative) Urine WBC (0-5) /hpf Urine Bacteria (None) /hpf Hyaline Casts (0-2) /lpf Urine Mucus (None) /hpf Microbiology - Last 24 Hours (Table) 07/31/22 22:09 Urine Culture - Preliminary Urine,Voided 07/29/22 15:19 Blood Culture - Preliminary Blood No Growth after 48 hours 07/29/22 14:44 Blood Culture - Preliminary Blood No Growth after 48 hours 07/29/22 12:28 Blood Culture - Preliminary Blood No Growth after 48 hours 07/29/22 12:32 Blood Culture - Preliminary Blood No Growth after 48 hours
--- NOTE | 2022-08-01 13:44 | P.PN ---
Subjective This is a pleasant 71-year-old patient who follows in the office with Dr. Oneill. She has a history of prior CABG, ischemic cardiomyopathy EF <20%, status post AICD, Permanent atrial fibrillation anticoagulated on warfarin, hypertension, CKD, hyperlipidemia and diabetes. Presented to the emergency department with complaints of progressively worsening weakness and shortness of breath over the last one to 2 weeks. Chest x-ray on admission showed small bilateral pleural effusions with associated atelectasis and right sided rib fractures. EKG showed atrial fibrillation with intermittently paced ventricular rhythm. Laboratory values showed a white blood cell count of 14,200, INR 3.4, BUN 50, creatinine 1.98, NT proBNP 25,900 and troponin 0.055 and 0.068. Evidence of urinary tract infection. She was initially started on IV Lasix and transition to PO Bumex. She was found to have parathyroid adenoma upper pole of right thyroid lobe on Pa rathyroid NM scan. 08/01 Patient seen and examined at bedside. Yesterday, she states she was going down for a test, she states she had to do a few movement on her back, then to her chest and she had symptoms of shortness of breath. She denied any chest pain or palpitations. She was found to be tachycardic on telemetry. No EKG available to review. Telemetry reviewed, around 4:30pm patient was tachycardic with HR >150s. Telemetry appears A fib w/ RVR vs V tach. This lasted for about 20 min. Patient was given IV amiodarone 150mg and started on IV drip. She states her symptoms improved after this. She is currently V paced with underlying A fib HR 70s. Labs: TSH within normal limits, PTH 125, sodium 1:30, potassium 3.9, BUN 56, serum creatinine 2.2, magnesium 2.1 INR 2.2 GENERAL: Frail on exam. No acute distress. NECK: Supple without JVD LUNGS: Breath sounds diminished to auscultation bilaterally. Respiration equal and unlabored. No wheezes, rales or rhonchi. HEART: Irregular rate and rhythm without Systolic ejection murmur, No rubs or gallops. S1 and S2 heard. EXTREMITIES: Normal range of motion, no edema. No clubbing or cyanosis. Peripheral pulses intact. ASSESSMENT Permanent atrial fibrillation with RVR, anticoagulated on warfarin Acute on chronic congestive heart failure with reduced ejection fraction, improve Symptoms of generalized weakness Parathyroid adenoma upper pole of right thyroid lobe reported on Parathyroid NM scan and head/neck US Coronary artery disease with prior CABG Known Ischemic cardiomyopathy EF <20% status post AICD UTI Chronic kidney disease, stable Hypercalcemia PLAN 2D echocardiogram ordered, read pending Transition to PO amiodarone Continue PO Bumex Continued to monitor daily weights, renal function, electrolytes and I&O. Nephrology is following Continue anticoagulation Continue home cardiac medications Further recommendations based on clinical course [employer] note has been reviewed, I agree with a documented findings and plan of care. Patient was seen and examined. Objective - Vital Signs Vital signs: Vital Signs Temp 97.1 F L 08/01/22 07:41 Pulse 72 08/01/22 08:17 Resp 17 08/01/22 08:17 BP 121/65 08/01/22 07:41 Pulse Ox 98 08/01/22 07:41 FiO2 Intake & Output 07/31/22 08/01/22 08/01/22 18:59 06:59 18:59 Intake Total 0 Output Total 500 100 Balance -500 -100 Intake: Oral 0 Output: Urine 500 100 Other: Voiding Method Toilet Toilet # Voids 2 - Labs CBC & Chem 7: 07/31/22 17:08 08/01/22 07:17 Labs: Abnormal Lab Results - Last 24 Hours (Table) 07/30/22 07/31/22 07/31/22 Range/Units 07:40 11:38 12:36 Hct (34.0-46.0) % PT (9.0-12.0) sec INR (<1.2) Carbon Dioxide (22-30) mmol/L BUN (7-17) mg/dL Creatinine (0.52-1.04) mg/dL Glucose (74-99) mg/dL POC Glucose (mg/dL) 204 H (70-110) mg/dL AST (14-36) U/L Alkaline Phosphatase (38-126) U/L Troponin I 0.042 H* (0.000-0.034) ng/mL Albumin (3.5-5.0) g/dL Albumin (PEP) 3.28 L (3.80-4.90) g/dL Urine Appearance (Clear) Urine Protein (Negative) Urine Blood (Negative) Ur Leukocyte Esterase (Negative) Urine WBC (0-5) /hpf Urine Bacteria (None) /hpf Hyaline Casts (0-2) /lpf Urine Mucus (None) /hpf 07/31/22 07/31/22 07/31/22 Range/Units 17:08 17:08 17:08 Hct 48.1 H (34.0-46.0) % PT (9.0-12.0) sec INR (<1.2) Carbon Dioxide 18 L (22-30) mmol/L BUN 53 H (7-17) mg/dL Creatinine 2.09 H (0.52-1.04) mg/dL Glucose 123 H (74-99) mg/dL POC Glucose (mg/dL) (70-110) mg/dL AST 45 H (14-36) U/L Alkaline Phosphatase 176 H (38-126) U/L Troponin I 0.046 H* (0.000-0.034) ng/mL Albumin (3.5-5.0) g/dL Albumin (PEP) (3.80-4.90) g/dL Urine Appearance (Clear) Urine Protein (Negative) Urine Blood (Negative) Ur Leukocyte Esterase (Negative) Urine WBC (0-5) /hpf Urine Bacteria (None) /hpf Hyaline Casts (0-2) /lpf Urine Mucus (None) /hpf 07/31/22 07/31/22 08/01/22 Range/Units 20:06 22:09 06:07 Hct (34.0-46.0) % PT (9.0-12.0) sec INR (<1.2) Carbon Dioxide (22-30) mmol/L BUN (7-17) mg/dL Creatinine (0.52-1.04) mg/dL Glucose (74-99) mg/dL POC Glucose (mg/dL) 143 H 123 H (70-110) mg/dL AST (14-36) U/L Alkaline Phosphatase (38-126) U/L Troponin I (0.000-0.034) ng/mL Albumin (3.5-5.0) g/dL Albumin (PEP) (3.80-4.90) g/dL Urine Appearance Cloudy H (Clear) Urine Protein 3+ H (Negative) Urine Blood Trace H (Negative) Ur Leukocyte Esterase Moderate H (Negative) Urine WBC 14 H (0-5) /hpf Urine Bacteria Rare H (None) /hpf Hyaline Casts 15 H (0-2) /lpf Urine Mucus Rare H (None) /hpf 08/01/22 08/01/22 Range/Units 07:17 07:17 Hct (34.0-46.0) % PT 22.3 H (9.0-12.0) sec INR 2.2 H (<1.2) Carbon Dioxide (22-30) mmol/L BUN 56 H (7-17) mg/dL Creatinine 2.21 H (0.52-1.04) mg/dL Glucose 126 H (74-99) mg/dL POC Glucose (mg/dL) (70-110) mg/dL AST (14-36) U/L Alkaline Phosphatase (38-126) U/L Troponin I (0.000-0.034) ng/mL Albumin 3.3 L (3.5-5.0) g/dL Albumin (PEP) (3.80-4.90) g/dL Urine Appearance (Clear) Urine Protein (Negative) Urine Blood (Negative) Ur Leukocyte Esterase (Negative) Urine WBC (0-5) /hpf Urine Bacteria (None) /hpf Hyaline Casts (0-2) /lpf Urine Mucus (None) /hpf Microbiology - Last 24 Hours (Table) 07/29/22 15:19 Blood Culture - Preliminary Blood No Growth after 48 hours 07/29/22 14:44 Blood Culture - Preliminary Blood No Growth after 48 hours 07/29/22 12:28 Blood Culture - Preliminary Blood No Growth after 48 hours 07/29/22 12:32 Blood Culture - Preliminary Blood No Growth after 48 hours
[2022-08-01 13:51] LABS: Free Lambda Lt Chain Qnt, Seru 4.51 mg/dL (0.57-2.63)
--- NOTE | 2022-08-01 15:37 | CDI ---
Documentation Clarification Form Date: 08/01/2022 03:16:37 PM From: Mireille Wilkins CCS, CCDS Admit Date: 07/29/2022 11:43:00 AM Patient Name: Dorothy Tillman Visit Number: [id number] Discharge Date: ATTENTION: The Clinical Documentation Specialists (CDI) and [facility] Coding Staff appreciate your assistance in clarifying documentation. Please respond to the clarification below the line at the bottom and electronically sign. The CDI & [facility] Coding staff will review the response and follow-up if needed. Please note: Queries are made part of the Legal Health Record. If you have any questions, please contact the author of this message via ITS. Dr. Levy So: Per the Rapid Response Team Progress Note on 07/31, the patient went into acute Atrial Fibrillation, started on Amiodarone bolus 150 with continuous drip and also given a 250 mL bolus of IV fluids normal saline due to Hypotension. Additional clarification regarding the patients acute Atrial Fibrillation and Hypotension requiring fluid boluses and IV Amiodarone. Patient history/risk factors per the 07/29 H/P: CAD with CABG & Left Infraclavical Pacemaker, Ischemic Cardiomyopathy, CKD IV, Hypercalcemia, Hyperparathyroidism, Diabetes Type II, Cholelithiasis, Chronic Congestive Heart Failure and Atrial Fibrillation. Clinical Indicators: Presented to the ED on 07/29 via EMS with Atrial Fibrillation and generalized weakness, associated exertion dyspnea. Admit with UTI and Exertional Dyspnea 07/29 VS: T 98.6, P 123, R 20, BP 104/76, PO 98 RA, BMI: 24.5 07/29 LAB: WBC 14.2, Neutrophils 12.4, Lymphocytes 0.7; PT 33.7, INR 3.4; BUN 50, Creatinine 1.98, Glucose 250, Calcium 10.9, Total Bilirubin 3.1, Alk Phos 200, Troponin 0.055, 0.094 07/29 CXR: Small bilateral pleural effusions with associated atelectasis, right side rib fractures. 07/31 VS: T 97.1, P 70, 56; R 17, BP 85/60, 90/59, 94/63; PO 98-99 on 2-4Lnc. 07/31 LAB: PT 23.8, INR 2.4; BUN 53, Creatinine 2.05, Glucose 118, Total Bilirubin 1.4, Troponins 0.042, 0.046 07/31 CXR: Bilateral infiltrate and pleural effusion stable. COPD correlate for chronic interstitial lung disease, mild superimposed venous congestion not excluded. 07/31 CT Chest: Moderate cardiomegaly. Pleural effusions, Chronic CHF. Atherosclerotic vascular disease. Probably underlying pulmonary interstitial fibrosis. 07/31 CT Head/Neck: Right inferior parathyroid adenoma. Thyroid nodules. Treatment 07/31: Cardiology Consult, Urine culture, IV Albumin 50 mls @ 50 mls/hr q1H, po KCL 20 meq x1, IV Na Chl 250 mls @ 999 mls/hr q16M, IV Dextrose/Water w/Amiodarone 103 mls @ 618 mls/hr q10M, IV Amiodarone in Dextrose/Water 200 mls @ 33.333 mls/hr q6H, po Coumadin 2 mg x1, IV Amiodarone in Dextrose/Water 250 mls @ 16.667 mls/hr q15H. Please clarify if the following was present: [ ] Cardiogenic Shock [ ] Hypotensive Shock [ ] Other Shock [ ] Other explanation for IV fluid replacement [ x] Other, please specify: _All what mentioned by the A team with the doctor cece, atrial fib with RVR 1 40/m [ ] Unable to determine (Template Last Revised: January 2021) MTDD
[2022-08-01] MEDS: AMIODARONE 450 MG in DEXTROSE 5% IN WATER 250 ML IV SCH ×2 (16:40)
[2022-08-01 16:44] LABS: Glucose,Whole Blood 97 mg/dL (70-110)
[2022-08-01] MEDS ORDERED: WARFARIN 2 MG TAB PO ONE (18:00)
[2022-08-01] MEDS: lamoTRIgine 100 MG TAB PO SCH (20:06)
[2022-08-01] MEDS: OXYBUTYNIN XL 5 MG TAB.ER.24 PO SCH (20:06)
[2022-08-01 20:07] LABS: Glucose,Whole Blood 108 mg/dL (70-110)
[2022-08-01] MEDS: ATORVASTATIN 80 MG TAB PO SCH (20:07)
[2022-08-02 05:00] LABS: INR 2.9 (<1.2); Prothrombin Time 28.9 sec (9.0-12.0)
[2022-08-02 05:09] LABS: Calcium 9.4 mg/dL (8.4-10.2); Magnesium 2.1 mg/dL (1.6-2.3); Potassium 3.7 mmol/L (3.5-5.1)
[2022-08-02 06:14] LABS: Glucose,Whole Blood 126 mg/dL (70-110)
[2022-08-02] MEDS: INSULIN ASPART (NovoLOG) 100 UNIT/ML VIAL SQ SCH ×2 (06:25→12:25)
[2022-08-02] MEDS: METOPROLOL SUCCINATE (ER) 50 MG TAB.ER.24H PO SCH (09:02)
[2022-08-02] MEDS: MEMANTINE 10 MG TAB PO SCH ×2 (09:02→20:12)
[2022-08-02] MEDS: LOSARTAN 25 MG TAB PO SCH (09:02)
[2022-08-02] MEDS: AMIODARONE 200 MG TAB PO SCH ×2 (09:02→20:12)
[2022-08-02] MEDS: MIDODRINE 5 MG TAB PO SCH ×3 (09:03→17:28)
[2022-08-02] MEDS: BUMETANIDE 0.5 MG TABLET PO SCH (09:03)
[2022-08-02] MEDS: PARoxetine 10 MG TAB PO SCH (09:04)
[2022-08-02] MEDS ORDERED: POTASSIUM CHLORIDE ER 20 MEQ TAB.ER PO STA (10:00)
--- NOTE | 2022-08-02 10:02 | P.PN ---
Subjective Patient is seen in follow-up for chronic kidney disease. Renal function worse. Creatinine 2.4. Now on oral amiodarone. Denies chest pain or shortness of breath. Admits to good urine output. Blood pressure stable. Vital signs are stable. General: Awake. No acute distress. HEENT: Head exam is unremarkable. LUNGS: Breath sounds decreased. HEART: Rate and Rhythm are regular. ABDOMEN: Soft, no distention. EXTREMITITES: No edema. Objective - Vital Signs Vital signs: Vital Signs Temp 97.4 F L 08/01/22 20:05 Pulse 79 08/02/22 04:30 Resp 18 08/02/22 04:30 BP 117/76 08/02/22 04:30 Pulse Ox 96 08/02/22 04:30 FiO2 Intake & Output 08/01/22 08/02/22 08/02/22 18:59 06:59 18:59 Intake Total 200.56 180 Output Total 450 Balance -249.44 180 Intake: Intake, IV Titration 200.56 Amount Amiodarone 450 mg In 200.56 Dextrose 5% in Water 250 ml @ 0.5 MG/MIN 16.667 mls/hr IV .Q[facility]H [facility] Rx#: [id number] Oral 180 Output: Urine 450 Other: Voiding Method Toilet Toilet # Voids 2 - Labs CBC & Chem 7: 07/31/22 17:08 08/02/22 04:36 Labs: Abnormal Lab Results - Last 24 Hours (Table) 07/30/22 08/01/22 08/02/22 Range/Units 07:40 11:30 04:36 PT (9.0-12.0) sec INR (<1.2) Carbon Dioxide 20 L (22-30) mmol/L BUN 60 H (7-17) mg/dL Creatinine 2.40 H (0.52-1.04) mg/dL Glucose 126 H (74-99) mg/dL POC Glucose (mg/dL) 191 H (70-110) mg/dL Free [place] LC, Quant 3.80 H (0.33-1.94) mg/dL Free Lambda LC, Quant 4.51 H (0.57-2.63) mg/dL 08/02/22 08/02/22 Range/Units 04:36 06:13 PT 28.9 H (9.0-12.0) sec INR 2.9 H (<1.2) Carbon Dioxide (22-30) mmol/L BUN (7-17) mg/dL Creatinine (0.52-1.04) mg/dL Glucose (74-99) mg/dL POC Glucose (mg/dL) 126 H (70-110) mg/dL Free [place] LC, Quant (0.33-1.94) mg/dL Free Lambda LC, Quant (0.57-2.63) mg/dL Microbiology - Last 24 Hours (Table) 07/29/22 15:19 Blood Culture - Preliminary Blood No Growth after 72 hours 07/29/22 14:44 Blood Culture - Preliminary Blood No Growth after 72 hours 07/29/22 12:28 Blood Culture - Preliminary Blood No Growth after 72 hours 07/29/22 12:32 Blood Culture - Preliminary Blood No Growth after 72 hours 07/31/22 22:09 Urine Culture - Preliminary Urine,Voided Assessment and Plan Plan: Assessment: 1. Chronic kidney disease stage IV secondary to diabetic kidney disease and cardiorenal syndrome with baseline creatinine near 2. 2. Acute on chronic systolic CHF. 3. Coronary artery disease status post CABG. 4. Hypercalcemia with concern for primary hyperparathyroidism. Status post pamidronate given 07/29/2022. Also on diuretic. Improved. PTH 125. TSH normal. Vitamin D 31. 1,25 D3 47. MARIELLE 47. Parathyroid nuclear scan does show focal parathyroid adenoma. No monoclonality noted on serum immunofixation. 5. Diabetes mellitus. 6. UTI on antibiotics. 7. Acute kidney injury secondary to ATN secondary to hemodynamic instability. Creatinine 2.4 today. 8. Metabolic acidosis secondary to acute kidney injury. 9. Hypokalemia from diuresis. Plan: Maintain oral Bumex. Patient will need to follow-up with endocrinology outpatient for further workup of the parathyroid adenoma. Parathyroidectomy may be considered as well. Maintain Sensipar 30 mg once a week for now. PTH is elevated at 125 which is due to concern for primary hyperparathyroidism as well as the underlying chronic kidney disease. Maintain midodrine. Hold for systolic blood pressure greater than 110. Continue to monitor renal function and urine output. Avoid nephrotoxins. Hold losartan for systolic blood pressure less than 120. Add oral bicarb. Replace potassium.
--- NOTE | 2022-08-02 10:24 | CA ---
Transthoracic Echo Report Name: Dorothy Tillman Age: 71 Gender: F : 1950 Exam Date: 07/30/2022 10:27 Exam Location: [facility] Ht (in): 66 Wt (lb): 153 Ordering Physician: Levy So MD Attending/Referring Phys: Monitoring Manager Dena Murphy RDCS Procedure CPT: Indications: atrial fib .htnurgency,tia Cardiac Hx: AICD, Hx of cardiomyopathy Technical Quality: Technically difficult study Contrast 1: Lumason Total Dose (mL): 1 Contrast 2: Total Dose (mL): MEASUREMENTS (Male / Female) Normal Values 2D ECHO LV Diastolic Diameter PLAX 6.6 cm 4.2 - 5.9 / 3.9 - 5.3 cm LV Systolic Diameter PLAX 5.3 cm IVS Diastolic Thickness 1.0 cm 0.6 - 1.0 / 0.6 - 0.9 cm LVPW Diastolic Thickness 0.8 cm 0.6 - 1.0 / 0.6 - 0.9 cm LV Relative Wall Thickness 0.3 LA Volume 71.3 cm??? 18 - 58 / 22 - 52 cm??? M-MODE Aortic Root Diameter MM 3.1 cm LA Systolic Diameter MM 3.3 cm LA Ao Ratio MM 1.1 MV E Point Septal Separation 5.2 cm AV Cusp Separation MM 1.8 cm DOPPLER AV Peak Velocity 99.4 cm/s AV Peak Gradient 4.0 mmHg AI Peak Velocity 95.1 cm/s AI Peak Gradient 3.6 mmHg AI Pressure Half Time 315.9 ms MV Area PHT 3.4 cm??? MR Peak Velocity 307.0 cm/s MR Peak Gradient 37.7 mmHg Mitral E Point Velocity 102.8 cm/s Mitral A Point Velocity 41.3 cm/s Mitral E to A Ratio 2.5 MV Deceleration Time 220.1 ms MV E' Velocity 2.6 cm/s Mitral E to MV E' Ratio 39.6 TR Peak Velocity 296.0 cm/s TR Peak Gradient 35.0 mmHg Right Ventricular Systolic Press 39.2 mmHg FINDINGS Left Ventricle Severely increased left ventricular diastolic diameter. Left ventricular ejection fraction is estimated at 10-15 %. Grade 3 diastolic dysfunction. Severe hypokinesis. left ventricular wall thickness normal. Right Ventricle RV appears enlarged. Mild pulmonary hypertension. AICD wire seen. Right Atrium Normal right atrial size. Left Atrium Moderately increased left atrial volume. Mildly increased left atrial area. Mitral Valve Mitral annular calcification. Mild mitral regurgitation. Aortic Valve Mild aortic regurgitation. Tricuspid Valve Structurally normal tricuspid valve. Mild tricuspid regurgitation. Pulmonic Valve Pulmonic valve not well visualized. Pericardium No pericardial effusion. Aorta Normal size aortic root and proximal ascending aorta. CONCLUSIONS Severe left ventricular hypokinesis. Left ventricular ejection fraction 10-15% Severely dilated left ventricle Mild mitral regurgitation Mild tricuspid regurgitation RVSP 39 Previewed by: Dr. Mitch Angela DO (Electronically Signed) Final Date: 02 August 2022 10:23
[2022-08-02 11:52] LABS: Glucose,Whole Blood 161 mg/dL (70-110)
[2022-08-02] MEDS: SODIUM BICARBONATE TAB 650 MG TAB PO SCH ×3 (12:25→20:12)
--- NOTE | 2022-08-02 13:30 | P.PN ---
Subjective This is a pleasant 71-year-old patient who follows in the office with Dr. Oneill. She has a history of prior CABG, ischemic cardiomyopathy EF <20%, status post AICD, Permanent atrial fibrillation anticoagulated on warfarin, hypertension, CKD, hyperlipidemia and diabetes. Presented to the emergency department with complaints of progressively worsening weakness and shortness of breath over the last one to 2 weeks. Chest x-ray on admission showed small bilateral pleural effusions with associated atelectasis and right sided rib fractures. EKG showed atrial fibrillation with intermittently paced ventricular rhythm. Laboratory values showed a white blood cell count of 14,200, INR 3.4, BUN 50, creatinine 1.98, NT proBNP 25,900 and troponin 0.055 and 0.068. Evidence of urinary tract infection. She was initially started on IV Lasix and transition to PO Bumex. She was found to have parathyroid adenoma upper pole of right thyroid lobe on Pa rathyroid NM scan. 08/01 Patient seen and examined at bedside. Yesterday, she states she was going down for a test, she states she had to do a few movement on her back, then to her chest and she had symptoms of shortness of breath. She denied any chest pain or palpitations. She was found to be tachycardic on telemetry. No EKG available to review. Telemetry reviewed, around 4:30pm patient was tachycardic with HR >150s. Telemetry appears A fib w/ RVR vs V tach. This lasted for about 20 min. Patient was given IV amiodarone 150mg and started on IV drip. She states her symptoms improved after this. She is currently V paced with underlying A fib HR 70s. Labs: TSH within normal limits, PTH 125, sodium 130, potassium 3.9, BUN 56, serum creatinine 2.2, magnesium 2.1 INR 2.2 08/02/2022 Patient seen and examined at bedside, no acute distress. Telemetry reviewed, she is V paced underlying A fib no further episodes of RVR. Vital signs are stable. Echocardiogram revealed EF 10-15%, severely dilated LV, mild MR, mild TR. GENERAL: Frail on exam. No acute distress. NECK: Supple without JVD LUNGS: Breath sounds diminished to auscultation bilaterally. Respiration equal and unlabored. No wheezes, rales or rhonchi. HEART: Irregular rate and rhythm without Systolic ejection murmur, No rubs or gallops. S1 and S2 heard. EXTREMITIES: Normal range of motion, no edema. No clubbing or cyanosis. Peripheral pulses intact. ASSESSMENT Permanent atrial fibrillation with RVR, anticoagulated on warfarin Acute on chronic congestive heart failure with reduced ejection fraction, i mprove Symptoms of generalized weakness Parathyroid adenoma upper pole of right thyroid lobe reported on Parathyroid NM scan and head/neck US Coronary artery disease with prior CABG Known Ischemic cardiomyopathy EF <20% status post AICD UTI Chronic kidney disease, stable Hypercalcemia PLAN Continue PO amiodarone Continue PO Bumex Continued to monitor daily weights, renal function, electrolytes and I&O. Nephrology is following Continue anticoagulation Continue home cardiac medications From a cardiology perspective, no further changes at this time. We recommend follow up outpatient. Please reach out with any further questions or concerns. PRODUCT ANALYST note has been reviewed, I agree with a documented findings and plan of care. Patient was seen and examined. Objective - Vital Signs Vital signs: Vital Signs Temp 98.3 F 08/02/22 11:51 Pulse 83 08/02/22 11:51 Resp 18 08/02/22 11:51 BP 122/80 08/02/22 11:51 Pulse Ox 96 08/02/22 11:51 FiO2 Intake & Output 08/01/22 08/02/22 08/02/22 18:59 06:59 18:59 Intake Total 200.56 180 Output Total 450 Balance -249.44 180 Intake: Intake, IV Titration 200.56 Amount Amiodarone 450 mg In 200.56 Dextrose 5% in Water 250 ml @ 0.5 MG/MIN 16.667 mls/hr IV .Q15H [facility] Rx#: [id number] Oral 180 Output: Urine 450 Other: Voiding Method Toilet Toilet Toilet # Voids 2 - Labs CBC & Chem 7: 07/31/22 17:08 08/02/22 04:36 Labs: Abnormal Lab Results - Last 24 Hours (Table) 07/30/22 08/02/22 08/02/22 Range/Units 07:40 04:36 04:36 PT 28.9 H (9.0-12.0) sec INR 2.9 H (<1.2) Carbon Dioxide 20 L (22-30) mmol/L BUN 60 H (7-17) mg/dL Creatinine 2.40 H (0.52-1.04) mg/dL Glucose 126 H (74-99) mg/dL POC Glucose (mg/dL) (70-110) mg/dL Free [place] LC, Quant 3.80 H (0.33-1.94) mg/dL Free Lambda LC, Quant 4.51 H (0.57-2.63) mg/dL 08/02/22 08/02/22 Range/Units 06:13 11:50 PT (9.0-12.0) sec INR (<1.2) Carbon Dioxide (22-30) mmol/L BUN (7-17) mg/dL Creatinine (0.52-1.04) mg/dL Glucose (74-99) mg/dL POC Glucose (mg/dL) 126 H 161 H (70-110) mg/dL Free [place] LC, Quant (0.33-1.94) mg/dL Free Lambda LC, Quant (0.57-2.63) mg/dL Microbiology - Last 24 Hours (Table) 07/31/22 22:09 Urine Culture - Final Urine,Voided 07/29/22 15:19 Blood Culture - Preliminary Blood No Growth after 72 hours 07/29/22 14:44 Blood Culture - Preliminary Blood No Growth after 72 hours 07/29/22 12:28 Blood Culture - Preliminary Blood No Growth after 72 hours 07/29/22 12:32 Blood Culture - Preliminary Blood No Growth after 72 hours
[2022-08-02 16:35] LABS: Glucose,Whole Blood 122 mg/dL (70-110)
--- NOTE | 2022-08-02 17:21 | P.PN ---
Subjective Progress Note Date: 08/02/22 Progress note dictation on 08/02/[address] kim Lopez FACP Patient seen today [id number] discussed with the patient and the plan Patient seen by nurse of dictation of cardiology a fair through their note, and in their estimation no farther treatment needed and they placed the patient on amiodarone 200 mg twice a day and advised to be followed as outpatient with her primary sack sewer machine Dr. Orellana Patient understand that she had abnormality with primary hyperparathyroidism and the need to follow-up with the photographic press screwmaker as outpatient and fortunately they don't comment to the hospital. She had underlying cardiomegaly as well as impaired ejection fraction saw for the echocardiogram report is not on the computer record. Also in regard of the sack sewer machine no clear explanation or simple explanation of elevated troponin with the possibility of non-STEMI [place] considered however we don't have any documentation from cardiology group Patient has ischemic cardiomyopathy, with impaired ejection fraction, admitted with acute congestive heart failure biventricular on the top of chronic. Patient has underlying stage IV chronic kidney disease seen by Dr. Fried and he placed her on sodium bicarb with the metabolic acidosis as well as Midrin for hypotension today still with her blood pressure 107/73 . Underlying primary hyper parathyroidism with the parathyroid hormone scan found nodule in the right lobe as well as ultrasound of the neck and because we have no photographic press screwmaker, to the hospital we are planning to repair the patient to the photographic press screwmaker as outpatient. The urine culture was clear from the UTI and patient currently will be off the antibiotic IV was no for further antibiotic needed On exam [id number] discussed with the patient plan and if there is no farther intervention by cardiology or nephrology will planning for tomorrow to be discharged and also we will be obtaining laboratory testing in a.m. to assess her renal function and the bicarb prior to discharge. On exam her vital sign: Temperature 97.7 F oral pulse rate 72/m regular with the underlying atrial fibrillation and defibrillator pacemaker and history of 5 coronary artery bypass graft. Patient was admitted initially with the shortness of breath and acute congestive heart failure on the top of chronic biventricular has well elevated troponin. 3 fair to the cardiology note. On exam: Head was normocephalic atraumatic pupil was equal reactive conjunctiva was pink sclera was nonicteric oropharynx negative able to eat and swallow Neck was supple no JVD no thyromegaly no lymphadenopathy trachea midline. Chest normal breath sounds and upper lung basis with the lower lung bases still rhonchi's and underlying probability of chronic interstitial lung disease considered and we did a computed tomography scan of the chest with the presence of cardiomegaly and pleural effusion Abdomen soft positive bowel sounds no tenderness in the four-quadrant Extremities no edema and positive pulses Neurologically stable and no lateralizing sign Psychiatry she stable with continuing her current medication and she is following with the psychiatrist apparently and this [facility]. Assessment: #1 patient with the underlying congestive heart failure acute on the top of chronic biventricular #2 ischemic cardiomyopathy #3 elevated NT proBNP #4 elevated troponin 1 #5 suspicious of non-STEMI [place] however we don't have any confirmation from sack sewer machine #6 episode of acute atrial fibrillation with RVR 1 40/m treated with amiodarone IV the A-team during the night and subsequently cardiology change it to amiodarone 200 mg twice a day. There order and to be followed by hair sack sewer machine for adjustment in in her dosis. #6 elevated parathyroid hormone, and hypercalcemia with the suspicious of a primary hyperparathyroidism Dr. Fried order the parathyroid scan which is positive for right nodule and ultrasound also documented that and he recommended to follow up with photographic press screwmaker. Patient also started on sodium bicarb with metabolic acidosis and chronic kidney disease stage IV #7 in the surgical hypotension and adjustment of medication, also patient started on Midrin to improve the blood pressure and to be held if the blood pressure more than 110 systolic. #8 we held the losartan temporary until patient blood pressure improved and seen by her sack sewer machine as well as the welding inspector Plan: #1 ambulate as tolerated #2 discontinue IV and saline lock #3 adjustment of her medication #4 CBC and BMP in a.m. #5 plan for discharge home tomorrow if there is no farther testing by cardiology or nephrology and to follow them as outpatient. Objective - Vital Signs Vital signs: Vital Signs Temp 97.7 F 08/02/22 16:00 Pulse 72 08/02/22 16:00 Resp 18 08/02/22 16:00 BP 107/73 08/02/22 16:00 Pulse Ox 95 08/02/22 16:00 FiO2 Intake & Output 08/01/22 08/02/22 08/02/22 18:59 06:59 18:59 Intake Total 200.56 360 Output Total 450 Balance -249.44 360 Intake: Intake, IV Titration 200.56 Amount Amiodarone 450 mg In 200.56 Dextrose 5% in Water 250 ml @ 0.5 MG/MIN 16.667 mls/hr IV .Q15H [facility] Rx#: [id number] Oral 360 Output: Urine 450 Other: Voiding Method Toilet Toilet Toilet # Voids 2 1 - Labs CBC & Chem 7: 07/31/22 17:08 08/02/22 04:36 Labs: Abnormal Lab Results - Last 24 Hours (Table) 08/02/22 08/02/22 08/02/22 Range/Units 04:36 04:36 06:13 PT 28.9 H (9.0-12.0) sec INR 2.9 H (<1.2) Carbon Dioxide 20 L (22-30) mmol/L BUN 60 H (7-17) mg/dL Creatinine 2.40 H (0.52-1.04) mg/dL Glucose 126 H (74-99) mg/dL POC Glucose (mg/dL) 126 H (70-110) mg/dL 08/02/22 08/02/22 Range/Units 11:50 16:34 PT (9.0-12.0) sec INR (<1.2) Carbon Dioxide (22-30) mmol/L BUN (7-17) mg/dL Creatinine (0.52-1.04) mg/dL Glucose (74-99) mg/dL POC Glucose (mg/dL) 161 H 122 H (70-110) mg/dL Microbiology - Last 24 Hours (Table) 07/29/22 12:32 Blood Culture - Preliminary Blood No Growth after 96 hours 07/29/22 12:28 Blood Culture - Preliminary Blood No Growth after 96 hours 07/31/22 22:09 Urine Culture - Final Urine,Voided 07/29/22 15:19 Blood Culture - Preliminary Blood No Growth after 72 hours 07/29/22 14:44 Blood Culture - Preliminary Blood No Growth after 72 hours
[2022-08-02] MEDS ORDERED: WARFARIN 1 MG TAB PO ONE (18:00)
[2022-08-02] MEDS: ATORVASTATIN 80 MG TAB PO SCH (20:11)
[2022-08-02] MEDS: OXYBUTYNIN XL 5 MG TAB.ER.24 PO SCH (20:12)
[2022-08-02] MEDS: lamoTRIgine 100 MG TAB PO SCH (20:12)
[2022-08-02 20:26] LABS: Glucose,Whole Blood 159 mg/dL (70-110)
[2022-08-03 06:34] LABS: Glucose,Whole Blood 130 mg/dL (70-110)
[2022-08-03 08:12] LABS: Basophils # (A) 0.1 k/uL (0-0.2); Basophils % (A) 1 %; Eosinophils # (A) 0.1 k/uL (0-0.7); Eosinophils % (A) 1 %; HCT 43.4 % (34.0-46.0); HGB 13.6 gm/dL (11.4-16.0); Hypochromasia Slight; Lymphocytes # (A) 1.5 k/uL (1.0-4.8); Lymphocytes % (A) 20 %; MCH 29.3 pg (25.0-35.0); MCHC 31.4 g/dL (31.0-37.0); MCV 93.2 fL (80.0-100.0); Mean Platelet Volume 8.3; Monocytes # (A) 0.6 k/uL (0-1.0); Monocytes % (A) 8 %; Neutrophils % (A) 66 %; Platelet Count 181 k/uL (150-450); RBC 4.66 m/uL (3.80-5.40); RDW 15.7 % (11.5-15.5); WBC 7.6 k/uL (3.8-10.6)
[2022-08-03 08:16] LABS: INR 3.5 (<1.2); Prothrombin Time 35.1 sec (9.0-12.0)
[2022-08-03 08:44] LABS: Calcium 8.8 mg/dL (8.4-10.2); Potassium 3.8 mmol/L (3.5-5.1)
[2022-08-03] MEDS: MEMANTINE 10 MG TAB PO SCH (08:45)
[2022-08-03] MEDS: AMIODARONE 200 MG TAB PO SCH (08:45)
[2022-08-03] MEDS: METOPROLOL SUCCINATE (ER) 50 MG TAB.ER.24H PO SCH (08:45)
[2022-08-03] MEDS: MIDODRINE 5 MG TAB PO SCH ×2 (08:48→12:20)
[2022-08-03] MEDS: BUMETANIDE 0.5 MG TABLET PO SCH (08:48)
[2022-08-03] MEDS: PARoxetine 10 MG TAB PO SCH (08:49)
[2022-08-03 08:51] VITALS: RESP 16; TEMP 97.6
[2022-08-03] MEDS ORDERED: POTASSIUM CHLORIDE ER 20 MEQ TAB.ER PO STA (10:07)
--- NOTE | 2022-08-03 10:11 | P.PN ---
Subjective Patient is seen in follow-up for chronic kidney disease. Renal function continues to worsen. Creatinine 2.85 today. Denies chest pain or shortness of breath. Admits to good urine output. Blood pressure stable. Vital signs are stable. General: Awake. No acute distress. HEENT: Head exam is unremarkable. LUNGS: Breath sounds decreased. HEART: Rate and Rhythm are regular. ABDOMEN: Soft, no distention. EXTREMITITES: No edema. Objective - Vital Signs Vital signs: Vital Signs Temp 97.6 F 08/03/22 08:00 Pulse 67 08/03/22 05:05 Resp 16 08/03/22 08:00 BP 116/73 08/03/22 08:00 Pulse Ox 100 08/03/22 08:00 FiO2 Intake & Output 08/02/22 08/03/22 08/03/22 18:59 06:59 18:59 Intake Total 900 Balance 900 Intake: Oral 900 Other: Voiding Method Toilet Toilet # Voids 1 1 - Labs CBC & Chem 7: 08/03/22 07:01 08/03/22 07:01 Labs: Abnormal Lab Results - Last 24 Hours (Table) 08/02/22 08/02/22 08/02/22 Range/Units 11:50 16:34 20:25 RDW (11.5-15.5) % PT (9.0-12.0) sec INR (<1.2) Carbon Dioxide (22-30) mmol/L BUN (7-17) mg/dL Creatinine (0.52-1.04) mg/dL Glucose (74-99) mg/dL POC Glucose (mg/dL) 161 H 122 H 159 H (70-110) mg/dL 08/03/22 08/03/22 08/03/22 Range/Units 06:31 07:01 07:01 RDW 15.7 H (11.5-15.5) % PT (9.0-12.0) sec INR (<1.2) Carbon Dioxide 20 L (22-30) mmol/L BUN 64 H (7-17) mg/dL Creatinine 2.85 H (0.52-1.04) mg/dL Glucose 120 H (74-99) mg/dL POC Glucose (mg/dL) 130 H (70-110) mg/dL 08/03/22 Range/Units 07:01 RDW (11.5-15.5) % PT 35.1 H (9.0-12.0) sec INR 3.5 H (<1.2) Carbon Dioxide (22-30) mmol/L BUN (7-17) mg/dL Creatinine (0.52-1.04) mg/dL Glucose (74-99) mg/dL POC Glucose (mg/dL) (70-110) mg/dL Microbiology - Last 24 Hours (Table) 07/29/22 15:19 Blood Culture - Preliminary Blood No Growth after 96 hours 07/29/22 14:44 Blood Culture - Preliminary Blood No Growth after 96 hours 07/29/22 12:32 Blood Culture - Preliminary Blood No Growth after 96 hours 07/29/22 12:28 Blood Culture - Preliminary Blood No Growth after 96 hours 07/31/22 22:09 Urine Culture - Final Urine,Voided Assessment and Plan Plan: Assessment: 1. Chronic kidney disease stage IV secondary to diabetic kidney disease and cardiorenal syndrome with baseline creatinine near 2. 2. Acute on chronic systolic CHF. 3. Coronary artery disease status post CABG. 4. Hypercalcemia with concern for primary hyperparathyroidism. Status post pa midronate given 07/29/2022. Also on diuretic. Improved. PTH 125. TSH normal. Vitamin D 31. 1,25 D3 47. MARIELLE 47. Parathyroid nuclear scan does show focal parathyroid adenoma. No monoclonality noted on serum immunofixation. 5. Diabetes mellitus. 6. UTI on antibiotics. 7. Acute kidney injury secondary to ATN secondary to hemodynamic instability. Creatinine 2.85 today. 8. Metabolic acidosis secondary to acute kidney injury. On oral bicarb. 9. Hypokalemia from diuresis. Replace. Better. Plan: Maintain Bumex. Patient will need to follow-up with endocrinology outpatient for further workup of the parathyroid adenoma. Parathyroidectomy may be considered as well. Maintain Sensipar 30 mg once a week for now. PTH is elevated at 125 which is due to concern for primary hyperparathyroidism as well as the underlying chronic kidney disease. Maintain midodrine. Hold for systolic blood pressure greater than 110. Continue to monitor renal function and urine output. Avoid nephrotoxins. Hold losartan due to low blood pressure and worsening GFR. Replace potassium. Repeat labs in the morning. Check bladder scan to rule out urinary retention. Check renal uls.
--- NOTE | 2022-08-03 11:25 | US ---
EXAMINATION TYPE: US renals and bladder DATE OF EXAM: 08/03/2022 COMPARISON: NONE CLINICAL HISTORY: milly. MILLY EXAM MEASUREMENTS: Right Kidney: 9.1 x 4.1 x 4.6 cm Left Kidney: 9.9 x 4.7 x 3.7 cm Right Kidney: dilated renal pelvis Left Kidney: cystic area upper pole = 1.3 x 1.2 x 1.3cm Bladder: wnl Bilateral Jets seen: YES Fullness of right renal pelvis without calyceal dilatation consistent with extrarenal pelvis. No nep hrolithiasis is seen. Left kidney has a 1.3 cm thin-walled cyst upper pole level incidentally noted. The urinary bladder is anechoic adequately distended. Bilateral ureteral jets are seen. IMPRESSION: No hydronephrosis seen bilaterally.
[2022-08-03 12:23] LABS: Glucose,Whole Blood 116 mg/dL (70-110)
[2022-08-03 12:56] VITALS: BP 119/73; PULSE 88
[2022-08-03 13:07] VITALS: BMI 24.5
--- NOTE | 2022-08-03 16:03 | P.DS ---
Providers Date of admission: 07/29/22 11:43 Expected date of discharge: 08/03/22 (Discharge) Attending physician: Levy So Consults: 07/29/22 11:43 Consult Physician Urgent Consulting Provider: Robert Meraz Consult Reason/Comments: Exertional dyspnea, A. fib Do you want consulting provider notified?: Yes Consult Physician Urgent Consulting Provider: Cm Fried Consult Reason/Comments: ckd Do you want consulting provider notified?: Yes 07/31/22 12:24 Consult Physician Routine Consulting Provider: Man Joyce Consult Reason/Comments: nstemi afib rvr, amio gtt Do you want consulting provider notified?: Yes Primary care physician: Levy So Dictation on the discharge summary Date of service 08/03/[address] Saray Lopez [facility] Final diagnosis: #1 acute congestive heart failure biventricular on the top of chronic. #2 UTI resolved treated with antibiotic #3 coronary artery disease with status post coronary artery bypass graft 5 #4 ischemic cardiomyopathy #5 elevated troponin on admission questionable non-STEMI ME and we don't have clearance flaw from cardiology #6 parathyroid adenoma, presented with hypercalcemia and hyperparathyroidism, patient advised to see Dr. shannon clark fundraising manager Positive nuclear scan for parathyroid as well as ultrasound, primary hyperparathyroidism. #7 chronic kidney disease stage IV. Seen by Dr. Fried nephrology. #8 underlying anxiety, depression advised to follow-up with the psychiatrist in the [facility]. #9 left infraclavicular pacemaker/defibrillator #10 episode of acute atrial fibrillation with the rate 140 bpm, they called A team and they started her on amiodarone drip #11 cardiology monitor started there on oral amiodarone #12 interaction between amiodarone and warfarin with the prolongation of pro time, and INR resulted in pharmacy adjustment and decrease warfarin to only 1 mg to be monitored by Dr. Orellana her call center representative in the Coumadin clinic. #13 diabetes mellitus monitored and fairly controlled and increased her medication as well. #14 CT of the chest suggesting chronic pulmonary fibrosis discussed with the patient that she need to see Dr. Morrow as outpatient pulmonary and critical care. Consultation: Cardiology Dr. Joyce and Dr. Orellana to follow-up as outpatient Nephrology Dr. Fried follow-up as outpatient ER presentation: Patient admitted through the ER with the presentation of progressive weakness, shortness of breath found to be elevated troponin. Cardiology consult with presence of hypercalcemia elevated parathyroid hormone and chronic kidney disease consultation with nephrology. Echocardiogram on 07/30/[address] Angela Conclusion severe left ventricular hypokinesis Left ventricular ejection fraction 1015 percent Severely dilated left ventricle Mild mitral regurg Right ventricular systolic pressure 39. Patient had AI CD with the underlying mild pulmonary hypertension and aortic regurgitation and moderately increased left atrial volume and mildly increased left at 3 him area with mild annular mitral calcification and mild mitral regurgitation. Patient evaluated by the cardiology and adjusted her medication and started her on oral amiodarone 200 mg twice a day and they will be following her by her primary call center representative Dr. Orellana. Continued current medication and Dr. Fried also adjusted his medication and he will follow her at outside clinic nephrology clinic Dr. Fried put her on Sensipar 30 mg by mouth once a week. As patient clinically improved and the cardiology not doing any other investigation and cleared her for discharge as well as nephrology as patient stable general condition to be followed as outpatient new Hospital course she did very well and mentioned several testing and currently she is ready to go home with no farther adding investigation or expectation of any more improvement Vital sign on discharge temperature 97.6 F heart is regular 88 bpm respiratory rate 16 blood pressure 119/73 and mean arterial pressure 88 and oxygen satu ration 99 on the room air [id number] exam: Patient's conscious alert oriented 3 discussed with the patient current treatment and the plan in detail Head was normocephalic and atraumatic pupil was equal reactive conjunctiva was pink sclera was nonicteric Oropharynx statural teeth Neck was supple no JVD no bruits Chest was chronic rales and rhonchi the underlying chronic congestive heart failure no edema of the lower extremities. Heart regular to irregular with the atrial fib is paroxysmal and that she had left infraclavicular pacemaker Abdomen soft positive bowel sounds extremities no edema and positive pulses Neurologically stable Psychiatry stable with the current medication and advised to see a psychiatrist in the [facility] ordered to check with her insurance for psychiatry to continue her treatment. Patient stable general condition to be discharged home today Follow-up with nephrology as well as cardiology and will see her next week for follow-up medication discussed and advised to cut down on the Coumadin and to check her PT and INR next week at the Coumadin clinic by Dr. Orellana and to follow- up with the cardiology. Plan - Discharge Summary Discharge Rx Participant: No New Discharge Prescriptions: New Amiodarone [Cordarone] 200 mg PO BID #60 tab glipiZIDE [Glucotrol] 2.5 mg PO AC-BID #60 tab Atorvastatin [Lipitor] 80 mg PO HS 30 Days tab Cinacalcet [Sensipar] 30 mg PO WEEKLY #10 tab Sodium Bicarbonate Tab 650 mg PO BID #60 tab Warfarin [Coumadin] 1 mg PO DAILY #30 tablet Continue Metoprolol Succinate (ER) [Toprol XL] 50 mg PO DAILY Bumetanide [BUMEX] 0.5 mg PO DAILY Losartan [Cozaar] 25 mg PO DAILY PARoxetine HCL [Paxil Cr] 37.5 mg PO DAILY Tolterodine [Detrol] 2 mg PO HS Memantine [Namenda] 10 mg PO BID lamoTRIgine [LaMICtal] 200 mg PO HS Discontinued Atorvastatin [Lipitor] 80 mg PO HS glipiZIDE [glipiZIDE ER] 2.5 mg PO DAILY Warfarin [Coumadin] 2 mg PO HS Discharge Medication List Bumetanide [BUMEX] 0.5 mg PO DAILY 06/28/14 [History] Metoprolol Succinate (ER) [Toprol XL] 50 mg PO DAILY 06/28/14 [History] Losartan [Cozaar] 25 mg PO DAILY 07/29/22 [History] Memantine [Namenda] 10 mg PO BID 07/29/22 [History] PARoxetine HCL [Paxil Cr] 37.5 mg PO DAILY 07/29/22 [History] Tolterodine [Detrol] 2 mg PO HS 07/29/22 [History] lamoTRIgine [LaMICtal] 200 mg PO HS 07/29/22 [History] Amiodarone [Cordarone] 200 mg PO BID #60 tab 08/03/22 [Rx] Atorvastatin [Lipitor] 80 mg PO HS 30 Days tab 08/03/22 [Rx] Cinacalcet [Sensipar] 30 mg PO WEEKLY #10 tab 08/03/22 [Rx] Sodium Bicarbonate Tab 650 mg PO BID #60 tab 08/03/22 [Rx] Warfarin [Coumadin] 1 mg PO DAILY #30 tablet 08/03/22 [Rx] glipiZIDE [Glucotrol] 2.5 mg PO AC-BID #60 tab 08/03/22 [Rx] Follow up Appointment(s)/Referral(s): Robert Meraz MD [STAFF PHYSICIAN] - 08/16/22 8:45 am Shannon Clark MD [STAFF PHYSICIAN] - 1 Week Katie Chua MD [STAFF PHYSICIAN] - 08/24/22 2:00 pm Levy So MD [Primary Care Provider] - 1-2 days Patient Instructions/Handouts: Heart Failure (ER), A-fib (Atrial Fibrillation) (DC) Activity/Diet/Wound Care/Special Instructions: Amiodarone Instructions: Please take amiodarone 200mg BID for 2 weeks, then decrease to 200mg daily for 2 weeks, then decrease to 100mg daily Further changes by your call center representative outpatient
[2022-08-03] MEDS ORDERED: WARFARIN 0.5 MG TAB PO ONE (18:00)
[2022-08-07] MEDS ORDERED: CINACALCET 30 MG TAB PO SCH (09:00)
== END 2022-08-03 16:10 | disposition home or self-care (01) | DRG 291 ==
LOC: EC 08:37 → 3SCARD 11:43
PROVIDERS: ADMIT Internal Medicine; ATTEND Internal Medicine
PROC: 4B02XTZ Measurement of Cardiac Defibrillator, External Approach (ICD-10-PCS; principal; 2022-07-29)
DX: I13.0 Hypertensive heart and chronic kidney disease with heart failure and stage 1 through stage 4 chronic kidney disease, or unspecified chronic kidney disease (principal); I50.23 Acute on chronic systolic (congestive) heart failure; N17.0 Acute kidney failure with tubular necrosis; E87.2 Acidosis; N18.4 Chronic kidney disease, stage 4 (severe); I48.21 Permanent atrial fibrillation; N39.0 Urinary tract infection, site not specified; J98.11 Atelectasis; I50.82 Biventricular heart failure; I95.9 Hypotension, unspecified; J84.10 Pulmonary fibrosis, unspecified; E11.22 Type 2 diabetes mellitus with diabetic chronic kidney disease; R54 Age-related physical debility; E11.65 Type 2 diabetes mellitus with hyperglycemia; E21.0 Primary hyperparathyroidism; Z20.822 Contact with and (suspected) exposure to COVID-19; E87.6 Hypokalemia; D35.1 Benign neoplasm of parathyroid gland; I25.5 Ischemic cardiomyopathy; I25.10 Atherosclerotic heart disease of native coronary artery without angina pectoris; E55.9 Vitamin D deficiency, unspecified; F32.9 Major depressive disorder, single episode, unspecified; F41.9 Anxiety disorder, unspecified; K80.20 Calculus of gallbladder without cholecystitis without obstruction; S22.41XD Multiple fractures of ribs, right side, subsequent encounter for fracture with routine healing; R77.8 Other specified abnormalities of plasma proteins; Z79.84 Long term (current) use of oral hypoglycemic drugs; Z79.01 Long term (current) use of anticoagulants; Z79.899 Other long term (current) drug therapy; E78.5 Hyperlipidemia, unspecified; I25.2 Old myocardial infarction; Z95.810 Presence of automatic (implantable) cardiac defibrillator; Z87.891 Personal history of nicotine dependence; Z91.81 History of falling; Z95.1 Presence of aortocoronary bypass graft; Z88.8 Allergy status to other drugs, medicaments and biological substances; Z82.49 Family history of ischemic heart disease and other diseases of the circulatory system; Z83.3 Family history of diabetes mellitus
CPT/HCPCS: 36415; 71045; 71046; 71250; 76536; 76770; 78071; 80048; 80053; 81001; 82040; 82164; 82306; 82330; 82652; 83605; 83735; 83880; 83883; 83970; 84145; 84165; 84439; 84443; 84481; 84484; 85025; 85610; 85730; 86334; 86335; 87040; 87086; 87502; 87635; 93005; 93306; 94760; 96374; 96375; 99285

== ENCOUNTER 2022-08-16 11:08 | Inpatient (IN) | payer MEDICARE ==
[2022-08-16 12:51] LABS: INR 2.4 (<1.2); Partial Thromboplastin Time 30.6 sec (22.0-30.0); Prothrombin Time 24.2 sec (9.0-12.0)
[2022-08-16 12:59] LABS: Albumin 3.7 g/dL (3.5-5.0); Calcium 7.9 mg/dL (8.4-10.2); Magnesium 2.3 mg/dL (1.6-2.3); Potassium 4.3 mmol/L (3.5-5.1); Total Bilirubin 1.6 mg/dL (0.2-1.3); Total Protein 6.3 g/dL (6.3-8.2)
[2022-08-16 13:02] LABS: Anisocytosis Slight; Basophils # (A) 0.1 k/uL (0-0.2); Basophils % (A) 1 %; Eosinophils % (A) 1 %; HCT 46.4 % (34.0-46.0); Hypochromasia Moderate; Lymphocytes # (A) 0.9 k/uL (1.0-4.8); Lymphocytes % (A) 13 %; MCH 29.4 pg (25.0-35.0); MCHC 32.3 g/dL (31.0-37.0); Mean Platelet Volume 9.3; Monocytes # (A) 0.4 k/uL (0-1.0); Monocytes % (A) 5 %; Neutrophils # (A) 5.4 k/uL (1.3-7.7); Neutrophils % (A) 78 %; Platelet Count 190 k/uL (150-450); Poikilocytosis Slight
--- NOTE | 2022-08-16 13:34 | XR ---
EXAMINATION TYPE: XR chest 2V DATE OF EXAM: 08/16/2022 COMPARISON: Chest x-ray and CT chest July 31, 2022 HISTORY: Weakness. TECHNIQUE: Frontal and lateral views of the chest are obtained. FINDINGS: Persistent cardiomegaly with dual lead pacemaker/defibrillator. Overlying sternal wires ar e redemonstrated. Small bilateral pleural effusions again seen. The osseous structures remain demine ralized. Mild chronic compression type fractures in the mid to lower thoracic spine are redemonstrate d. IMPRESSION: Possible continued or recurrent CHF exacerbation as there is cardiomegaly with small kaleb ateral pleural effusions redemonstrated.
[2022-08-16] MEDS ORDERED: ASPIRIN 81 MG PO STA (13:40)
[2022-08-16] MEDS ORDERED: FUROSEMIDE 10 MG/ML 4 ML VIAL IV STA (13:40)
[2022-08-16] MEDS ORDERED: NALOXONE 0.4 MG/ML 1 ML VIAL IV PRN (13:56)
--- NOTE | 2022-08-16 14:01 | ED ---
General Adult HPI - General Chief complaint: Weakness Stated complaint: JOANNE Time Seen by Provider: 08/16/22 11:15 Source: patient, EMS, RN notes reviewed, old records reviewed Mode of arrival: EMS Limitations: no limitations - History of Present Illness Initial comments: Patient is a 71-year-old female with past medical history remarkable for congestive heart failure, AICD placement, ischemic cardiomyopathy, CK D, chronically elevated troponin, history of atrial fibrillation on Coumadin who presents emergency Department complaining of worsening lower extremity swelling, worsening exertional dyspnea, nonproductive cough. Patient does endorse ortho pnea worsening orthopnea. Believes it is her congestive heart failure. This is similar to her prior presentation. She endorses weakness. Is not on oxygen at home. Denies chest pain. Denies abdominal pain, nausea, vomiting. Denies any fevers, chills, cough. Presents for further evaluation this time over concern for CHF. States she has been compliant with her diuretics. - Related Data Home Medications Medication Instructions Recorded Confirmed Bumetanide [BUMEX] 0.5 mg PO DAILY 06/28/14 08/16/22 Metoprolol Succinate (ER) [Toprol 50 mg PO DAILY 06/28/14 08/16/22 XL] Losartan [Cozaar] 25 mg PO DAILY 07/29/22 08/16/22 Memantine [Namenda] 10 mg PO BID 07/29/22 08/16/22 PARoxetine HCL [Paxil Cr] 37.5 mg PO DAILY 07/29/22 08/16/22 Tolterodine [Detrol] 2 mg PO HS 07/29/22 08/16/22 lamoTRIgine [LaMICtal] 200 mg PO HS 07/29/22 08/16/22 Cinacalcet [Sensipar] 30 mg PO SA 08/16/22 08/16/22 Warfarin [Coumadin] 1 mg PO [id number]@2100 08/16/22 08/16/22 Previous Rx's Medication Instructions Recorded Amiodarone [Cordarone] 200 mg PO BID #60 tab 08/03/22 Atorvastatin [Lipitor] 80 mg PO HS 30 Days tab 08/03/22 Sodium Bicarbonate Tab 650 mg PO BID #60 tab 08/03/22 Allergies Allergy/AdvReac Type Severity Reaction Status Date / Time Iodinated Contrast Media Allergy Rash/Hives Verified 08/16/22 12:58 iodine Allergy Rash/Hives Verified 08/16/22 12:58 nifedipine [From Procardia] Allergy Rash/Hives Verified 08/16/22 12:58 Review of Systems ROS Statement: Those systems with pertinent positive or pertinent negative responses have been documented in the HPI. Review of Systems: CONST: Denies fever EYES: Denies blurry vision ENT: Denies nasal congestion C/V: Denies Chest pain RESP: Endorses dyspnea GI: Denies abdominal pain : Denies dysuria SKIN: Denies rash. MSK: Denies joint pain. NEURO: Denies headache ROS Other: All systems not noted in ROS Statement are negative. Past Medical History Past Medical History: Diabetes Mellitus, Hyperlipidemia, Hypertension, Myocardial Infarction ([place]) Additional Past Medical History / Comment(s): CHF Last Myocardial Infarction Date:: september 1991 History of Any Multi-Drug Resistant Organisms: None Reported Past Surgical History: Coronary Bypass/CABG Additional Past Surgical History / Comment(s): Open heart in 1998 Past Anesthesia/Blood Transfusion Reactions: No Reported Reaction Type of Cardiac Device: Permanent Pacemaker, AICD Device Placement Date:: 2001 Past Psychological History: Anxiety, Depression Smoking Status: Former smoker Past Alcohol Use History: None Reported Past Drug Use History: None Reported - Past Family History Sister(s) Family Medical History: Deep Vein Thrombosis (DVT) Mother Family Medical History: Diabetes Mellitus Additional Family Medical History / Comment(s): mitral valve problemsl; stroke; macular degeneration Father Additional Family Medical History / Comment(s): ? cardiac history General Exam - General Exam Comments Initial Comments: General: Appears in no acute distress. HEAD: Normal with no signs of head trauma. EYES: PERRLA, EOMI, conjunctiva normal, no discharge. ENT: Hearing grossly intact, normal oropharynx. RESPIRATORY: Relatively clear breath sounds bilaterally with mild crackles. No increased work of breathing. No hypoxia. C/V: Ventricularly paced rhythm. S1 and S2 auscultated. Peripheral pitting edema bilateral lower extremities up to the level of the knee and is symmetrical. Peripheral pulses 2+ and intact throughout. ABD: Abd is soft, nontender, nondistended EXT: Normal range of motion, no obvious deformity SKIN: No rashes or lesions observed on exposed skin. NEURO: Alert and oriented 4. No focal deficits. Limitations: no limitations Course Vital Signs 08/16/22 08/16/22 08/16/22 11:11 11:19 12:28 Pulse Rate 77 81 Pulse Rate [ 89 Assistant Secretary ] Respiratory 18 18 Rate Blood Pressure 97/76 104/61 O2 Sat by Pulse 97 96 Oximetry 08/16/22 13:54 Pulse Rate 83 Pulse Rate [ Assistant Secretary ] Respiratory 18 Rate Blood Pressure 127/104 O2 Sat by Pulse 95 Oximetry Medical Decision Making - Medical Decision Making Based on the patient's presentation and physical exam, does appear she is in heart failure exacerbation. Cardiopulmonary labs will be obtained. Covid swab will be obtained. She'll be given a single dose of Lasix. Vital signs are within normal limits. She was in agreement with this plan. She is worsening orthopnea, exertional dyspnea, mild crackles, EKG shows a ventricularly paced rhythm. Chest x-ray shows bilateral mild pulmonary edema with chronic cardiomegaly and trace bilateral pleural effusions. Lavatory studies are remarkable for a therapeutic INR of 2.4, AKA on CK D with an elevated be one of 112 and creatinine 4.66 both above baseline, chronically elevated troponin with her baseline likely secondary to heart failure and kidney disease at 0.06, as well as elevated BNP of 26,000 which is slightly above her baseline of 20,000. Covid influenza negative. Urine is still pending. Kidney findings are likely secondary to chronic cardiorenal syndrome. After the patient as well as her family regarding the findings. I believe she should be admitted for her MILLY on CK D and for cardiology evaluation. Her cardiac labs appeared to be within her normal baseline. However we will trend the troponin. During agreement with this plan. Echo was obtained on last admission and showed an EF near 10%. I spoke with Dr. So, the patient's admitting physician who is in agreement with admission. Requested I consult with nephrology and cardiology which was placed. Patient was therefore admitted in stable condition to a telemetry bed. - Lab Data Result diagrams: 08/16/22 12:27 08/16/22 12:27 Lab Results 08/16/22 08/16/22 08/16/22 Range/Units 12:27 12:27 12:27 WBC 7.0 (3.8-10.6) k/uL RBC 5.10 (3.80-5.40) m/uL Hgb 15.0 (11.4-16.0) gm/dL Hct 46.4 H (34.0-46.0) % MCV 91.0 (80.0-100.0) fL MCH 29.4 (25.0-35.0) pg MCHC 32.3 (31.0-37.0) g/dL RDW 16.0 H (11.5-15.5) % Plt Count 190 (150-450) k/uL MPV 9.3 Neutrophils % 78 % Lymphocytes % 13 % Monocytes % 5 % Eosinophils % 1 % Basophils % 1 % Neutrophils # 5.4 (1.3-7.7) k/uL Lymphocytes # 0.9 L (1.0-4.8) k/uL Monocytes # 0.4 (0-1.0) k/uL Eosinophils # 0.0 (0-0.7) k/uL Basophils # 0.1 (0-0.2) k/uL Hypochromasia Moderate Poikilocytosis Slight Anisocytosis Slight PT 24.2 H (9.0-12.0) sec INR 2.4 H (<1.2) APTT 30.6 H (22.0-30.0) sec Sodium 138 (137-145) mmol/L Potassium 4.3 (3.5-5.1) mmol/L Chloride 99 (98-107) mmol/L Carbon Dioxide 21 L (22-30) mmol/L Anion Gap 18 mmol/L BUN 112 H* (7-17) mg/dL Creatinine 4.66 H (0.52-1.04) mg/dL Est GFR (CKD-EPI)AfAm 10 (>60 ml/min/1.73 sqM) Est GFR (CKD-EPI)NonAf 9 (>60 ml/min/1.73 sqM) Glucose 130 H (74-99) mg/dL Plasma Lactic Acid Royal (0.7-2.0) mmol/L Calcium 7.9 L (8.4-10.2) mg/dL Magnesium 2.3 (1.6-2.3) mg/dL Total Bilirubin 1.6 H (0.2-1.3) mg/dL AST 67 H (14-36) U/L ALT 83 H (4-34) U/L Alkaline Phosphatase 221 H (38-126) U/L Troponin I (0.000-0.034) ng/mL NT-Pro-B Natriuret Pep pg/mL Total Protein 6.3 (6.3-8.2) g/dL Albumin 3.7 (3.5-5.0) g/dL Coronavirus (PCR) (Not Detectd) Influenza Type A RNA (Not Detectd) Influenza Type B (PCR) (Not Detectd) 08/16/22 08/16/22 08/16/22 Range/Units 12:27 12:27 12:27 WBC (3.8-10.6) k/uL RBC (3.80-5.40) m/uL Hgb (11.4-16.0) gm/dL Hct (34.0-46.0) % MCV (80.0-100.0) fL MCH (25.0-35.0) pg MCHC (31.0-37.0) g/dL RDW (11.5-15.5) % Plt Count (150-450) k/uL MPV Neutrophils % % Lymphocytes % % Monocytes % % Eosinophils % % Basophils % % Neutrophils # (1.3-7.7) k/uL Lymphocytes # (1.0-4.8) k/uL Monocytes # (0-1.0) k/uL Eosinophils # (0-0.7) k/uL Basophils # (0-0.2) k/uL Hypochromasia Poikilocytosis Anisocytosis PT (9.0-12.0) sec INR (<1.2) APTT (22.0-30.0) sec Sodium (137-145) mmol/L Potassium (3.5-5.1) mmol/L Chloride (98-107) mmol/L Carbon Dioxide (22-30) mmol/L Anion Gap mmol/L BUN (7-17) mg/dL Creatinine (0.52-1.04) mg/dL Est GFR (CKD-EPI)AfAm (>60 ml/min/1.73 sqM) Est GFR (CKD-EPI)NonAf (>60 ml/min/1.73 sqM) Glucose (74-99) mg/dL Plasma Lactic Acid Royal 1.6 (0.7-2.0) mmol/L Calcium (8.4-10.2) mg/dL Magnesium (1.6-2.3) mg/dL Total Bilirubin (0.2-1.3) mg/dL AST (14-36) U/L ALT (4-34) U/L Alkaline Phosphatase (38-126) U/L Troponin I 0.060 H* (0.000-0.034) ng/mL NT-Pro-B Natriuret Pep 93527 pg/mL Total Protein (6.3-8.2) g/dL Albumin (3.5-5.0) g/dL Coronavirus (PCR) (Not Detectd) Influenza Type A RNA (Not Detectd) Influenza Type B (PCR) (Not Detectd) 08/16/22 08/16/22 Range/Units 12:27 12:27 WBC (3.8-10.6) k/uL RBC (3.80-5.40) m/uL Hgb (11.4-16.0) gm/dL Hct (34.0-46.0) % MCV (80.0-100.0) fL MCH (25.0-35.0) pg MCHC (31.0-37.0) g/dL RDW (11.5-15.5) % Plt Count (150-450) k/uL MPV Neutrophils % % Lymphocytes % % Monocytes % % Eosinophils % % Basophils % % Neutrophils # (1.3-7.7) k/uL Lymphocytes # (1.0-4.8) k/uL Monocytes # (0-1.0) k/uL Eosinophils # (0-0.7) k/uL Basophils # (0-0.2) k/uL Hypochromasia Poikilocytosis Anisocytosis PT (9.0-12.0) sec INR (<1.2) APTT (22.0-30.0) sec Sodium (137-145) mmol/L Potassium (3.5-5.1) mmol/L Chloride (98-107) mmol/L Carbon Dioxide (22-30) mmol/L Anion Gap mmol/L BUN (7-17) mg/dL Creatinine (0.52-1.04) mg/dL Est GFR (CKD-EPI)AfAm (>60 ml/min/1.73 sqM) Est GFR (CKD-EPI)NonAf (>60 ml/min/1.73 sqM) Glucose (74-99) mg/dL Plasma Lactic Acid Royal (0.7-2.0) mmol/L Calcium (8.4-10.2) mg/dL Magnesium (1.6-2.3) mg/dL Total Bilirubin (0.2-1.3) mg/dL AST (14-36) U/L ALT (4-34) U/L Alkaline Phosphatase (38-126) U/L Troponin I (0.000-0.034) ng/mL NT-Pro-B Natriuret Pep pg/mL Total Protein (6.3-8.2) g/dL Albumin (3.5-5.0) g/dL Coronavirus (PCR) Not Detected (Not Detectd) Influenza Type A RNA Not Detected (Not Detectd) Influenza Type B (PCR) Not Detected (Not Detectd) - EKG Data -: EKG Interpreted by Me EKG Comments: 12-lead Electrocardiogram Interpretation Note EKG was reviewed and interpreted by myself. 12-lead ECG performed at 1113 is interpreted by me as revealing ventricularly paced rhythm. At a rate of 80 beats per minute. There were no acute ST or T wave abnormalities to suggest myocardial ischemia or injury. R wave progression isolated.. By my interpretation this EKG is non-diagnostic for acute ischemia. Shows chronic changes. Disposition Clinical Impression: Acute kidney injury superimposed on CKD, Cardiorenal syndrome, Elevated troponin, CHF exacerbation Disposition: ADMITTED IP TO THIS HOSP Condition: Stable Referrals: Levy So MD [Primary Care Provider] - 1-2 days Time of Disposition: 13:50
[2022-08-16 14:10] LABS: Appearance,Urine Cloudy (Clear); Bilirubin,Urine Negative (Negative); Blood,Urine Moderate (Negative); Color,Urine Yellow; Glucose,Urine (UA) Negative (Negative); Hyaline Casts,Urine 1 /lpf (0-2); Ketones,Urine Negative (Negative); Leukocyte Esterase,Urine Trace (Negative); Nitrite,Urine Negative (Negative); PH, Urine 5.5 (5.0-8.0); Protein,Urine 1+ (Negative); RBC,Urine 3 /hpf (0-5); Specific Gravity,Urine 1.015 (1.001-1.035); Squamous Epithelial Cell,Urine 2 /hpf (0-4); Urobilinogen,Urine <2.0 mg/dL (<2.0); WBC,Urine 4 /hpf (0-5)
[2022-08-16 16:49] LABS: Glucose,Whole Blood 101 mg/dL (70-110)
[2022-08-16] MEDS ORDERED: INSULIN ASPART (NovoLOG) 100 UNIT/ML VIAL SQ SCH (17:30)
--- NOTE | 2022-08-16 17:44 | P.HPIM ---
History of Present Illness H&P Date: 08/16/22 (Acute kidney injury, ejection fraction of 10%, resistant to edema of the lower extremities.) Chief Complaint: Complained of worsening edema of the lower extremities, severe weakness . History and physical Date of service 08/16/[address] Saray Lopez FACP. Patient seen today and discussed was her daughter, and her sister and the patient Patient request full resuscitation including intubation and respiratory rate. Chief complaint patient presented to the ER physician Dr. Sheikh with the progressive weakness with inability to even do her ADLs, increased edema of the lower extremities with the underlying chronic congestive heart failure. History of present illness: Addie zambrano is 71 years old white female admitted through the emergency room with progressive weakness, progressive edema of the lower extremities, and underlying history of previous admission to [facility] on July 21. Subsequently discharged home to be followed by Dr. Urias two way radio technician. Last Saturday she was seen by the relay associate for reviewing the AICD with the pacemaker, she was told that needed to be changed. Patient subsequently seen by the nursing practitioner with no changes with her main complain of progressive weakness and increased edema of the lower extremities. Associated with losing ability of doing her ADL and shortness of breath which is chronic with the progression of the chronic congestive heart failure. Echocardiogram done during her admission previous admission 07/30/2022 at that time she was seen by Dr. Angela two way radio technician with the impression of patient had pulmonary hypertension AICD and had severely increased left ventricular diastolic diameter and the ejection fraction 1015 percent grade 3 diastolic dysfunction with severe hypokinesis. She had lived at today of moderately increased volume and mildly increased left atrial area, mitral annular calcification and mild mitral regurgitation as well as mild tricuspid regurgitation with the RVSP 39. Past medical history: #1 patient had coronary artery bypass graft 5 #2 biventricular ischemic cardiomyopathy with impaired ejection fraction 10% #3 pulmonary hypertension #4 diabetes mellitus type 2 on oral hypoglycemic agents #5 patient with episode of A. fib with RVR during her last admission with the luli LARA during the night contacting cardiology who placed her on amiodarone Patient started on drip followed by oral amiodarone, supposedly she will be seeing the two way radio technician to adjust her dose as outpatient. The cardiology rounding. #6 she had chronic anxiety and depression. #7 she had elevated troponin on her last admission(as well as admission. #8 she had chronic kidney disease to stage III however on this admission sudden elevation to stage IV associated nonoliguric renal failure with the creatinine jumped to 4.66 and a BUN 112. #9 patient had metabolic acidosis and her lost admission, currently on sodium bicarb which improved her carbon [id number] #10 history of hypercalcemia, and elevated PTH associated with right lobe nodule of the parathyroid documented by nuclear medicine and ultrasound, as outpatient she was referred to Dr. lexa Clark neonatal icu coordinator and she had appointment in next month's. #11 hypertension with hypertensive heart disease. Family history: 1 para 11 daughter 3 sister and one brother. ALLERGIES: Hydrated contrast media Iodine, nifedipine. Review of system: Cardiovascular: Denied chest pain, shortness of breath with orthopnea with minimal exertion Pulmonary: No off or expectoration no infection GI no diarrhea or constipation no hematochezia or hematemesis no evidence of infection or dysuria or hematuria, history of chronic kidney disease with the acute kidney injury on this admission nonoliguric type urinary incontinent Tapia catheter placed in the ER because of the acute kidney injury and incontinent and monitoring I&O Musculoskeletal severe weakness, with market effect on her ADLs. Endocrine diabetes mellitus type 2 Heart severe impairment of ejection fraction biventricular with the underlying cardiomyopathy and ejection fraction of 10% and association with pulmonary hypertension. Neuro psychiatry: Associated with depression and anxiety. Review of the rest of the bullet noncontributory. Medication: #1 Bumex 0.5 mg daily #2 metoprolol succinate 50 mg daily #3 Cozaar 25 mg by mouth daily #4 Namenda 10 mg twice a day #5 Paxil CR 37.5 mg. #6 Lamictal 200 mg at at bedtime #7 Sensipar 30 mg by mouth daily started by Dr. Fried on her lost admission #8 Detrol 2 mg at at bedtime FOR URINARY INCONTINENT #9 amiodarone 200 mg twice a day started by the cardiology on her last admission #10 atorvastatin 80 mg at at bedtime by cardiology #11 sodium bicarb 650 mg twice a day by Dr. Arroyo. The last myocardial infarction in September 1991 No alcohol intake Former smoker. AICD Coronary artery bypass graft in 1998. Coronavirus PCR not detected Influenza type a RNA not detected. EKG ventricular pacing. Chest x-ray the current congestive heart failure exacerbation with cardiomegaly small bilateral pleural effusion. Physical exam: Head was normocephalic and atraumatic, pupil was equal reactive, normal hearing, oropharynx natural teeth. Neck was supple no JVD no thyromegaly no lymphadenopathy and previously we know the right lobe of parathyroid nodule. Chest mild increase in anteroposterior diameter breath sound decreased on the lower basis no wheezes no rhonchi Heart ventricular pacing appeared to be regular with day left infraclavicular AICD soft murmur on the right side of the heart Abdomen is soft positive bowel sounds no tenderness Tapia catheter in place with draining urine Extremities: Positive pulses with 4+ pitting edema. No excoriation Psychiatric stable Neurologically stable no lateralizing sign. Assessment and plan #1 acute kidney injury with the sudden elevation in creatinine from 2 to more than 4 multifactorial with the pre-renal and impaired ejection fraction to 10% #2 ischemic cardiomyopathy #3 elevated troponin #4 primary hyperparathyroidism considered with the right lobe nodule in the parathyroid gland #5 chronic congestive heart failure biventricular #64+ bilateral edema is associated with cardiac impairment and pulmonary h ypertension #7 cardiorenal syndrome. #8 depression and anxiety #9 patient had the chest x-ray indicating mild chronic compression type fracture in the mid to lower thoracic spine redemonstrated however patient did not have a complain of pain at this time Plan: #1 consultation with cardiology #2 consultation with nephrology #3 continue current medication #4 discussed with the CODE STATUS with the patient and her daughter and her sister and they requested full code. #5 monitoring the troponin. #6 will follow the recommendation of the specialist for any infarct or invasive testing or treatment Past Medical History Past Medical History: Diabetes Mellitus, Hyperlipidemia, Hypertension, Myocardial Infarction ([place]) Additional Past Medical History / Comment(s): CHF, CKD Last Myocardial Infarction Date:: september 1991 History of Any Multi-Drug Resistant Organisms: None Reported Past Surgical History: Coronary Bypass/CABG Additional Past Surgical History / Comment(s): Open heart in 1998 Past Anesthesia/Blood Transfusion Reactions: No Reported Reaction Type of Cardiac Device: Permanent Pacemaker, AICD Device Placement Date:: 2001 Past Psychological History: Anxiety, Depression Smoking Status: Former smoker Past Alcohol Use History: None Reported Past Drug Use History: None Reported Additional Drug Use History / Comment(s): quit smoking in 1990 - Past Family History Sister(s) Family Medical History: Deep Vein Thrombosis (DVT) Mother Family Medical History: Diabetes Mellitus Additional Family Medical History / Comment(s): mitral valve problemsl; stroke; macular degeneration Father Additional Family Medical History / Comment(s): ? cardiac history Medications and Allergies Home Medications Medication Instructions Recorded Confirmed Type Bumetanide [BUMEX] 0.5 mg PO DAILY 06/28/14 08/16/22 History Metoprolol Succinate (ER) [Toprol 50 mg PO DAILY 06/28/14 08/16/22 History XL] Losartan [Cozaar] 25 mg PO DAILY 07/29/22 08/16/22 History Memantine [Namenda] 10 mg PO BID 07/29/22 08/16/22 History PARoxetine HCL [Paxil Cr] 37.5 mg PO DAILY 07/29/22 08/16/22 History Tolterodine [Detrol] 2 mg PO HS 07/29/22 08/16/22 History lamoTRIgine [LaMICtal] 200 mg PO HS 07/29/22 08/16/22 History Amiodarone [Cordarone] 200 mg PO BID #60 tab 08/03/22 08/16/22 Rx Atorvastatin [Lipitor] 80 mg PO HS 30 Days tab 08/03/22 08/16/22 Rx Sodium Bicarbonate Tab 650 mg PO BID #60 tab 08/03/22 08/16/22 Rx Cinacalcet [Sensipar] 30 mg PO SA 08/16/22 08/16/22 History Warfarin [Coumadin] 1 mg PO SUMOTUWEFRSA@2100 08/16/22 08/16/22 History Allergies Allergy/AdvReac Type Severity Reaction Status Date / Time Iodinated Contrast Media Allergy Rash/Hives Verified 08/16/22 12:58 iodine Allergy Rash/Hives Verified 08/16/22 12:58 nifedipine [From Procardia] Allergy Rash/Hives Verified 08/16/22 12:58 Physical Exam Vitals: Vital Signs Pulse Pulse Resp BP Pulse Ox 08/16/22 13:54 83 18 127/104 95 08/16/22 12:28 81 18 104/61 96 08/16/22 11:19 89 08/16/22 11:11 77 18 97/76 97 Intake and Output 08/16/22 08/16/22 08/16/22 06:59 14:59 22:59 Output Total 670 Balance -670 Output: Urine 670 Uretheral (Tapia) 400 Other: Weight 72.575 kg Results CBC & Chem 7: 08/16/22 12:27 08/16/22 12:27 Labs: Abnormal Lab Results - Last 24 Hours (Table) 08/16/22 08/16/22 08/16/22 Range/Units 12:27 12:27 12:27 Hct 46.4 H (34.0-46.0) % RDW 16.0 H (11.5-15.5) % Lymphocytes # 0.9 L (1.0-4.8) k/uL PT 24.2 H (9.0-12.0) sec INR 2.4 H (<1.2) APTT 30.6 H (22.0-30.0) sec Carbon Dioxide 21 L (22-30) mmol/L BUN 112 H* (7-17) mg/dL Creatinine 4.66 H (0.52-1.04) mg/dL Glucose 130 H (74-99) mg/dL Calcium 7.9 L (8.4-10.2) mg/dL Total Bilirubin 1.6 H (0.2-1.3) mg/dL AST 67 H (14-36) U/L ALT 83 H (4-34) U/L Alkaline Phosphatase 221 H (38-126) U/L Troponin I (0.000-0.034) ng/mL Urine Appearance (Clear) Urine Protein (Negative) Urine Blood (Negative) Ur Leukocyte Esterase (Negative) 08/16/22 08/16/22 Range/Units 12: 13:54 Hct (34.0-46.0) % RDW (11.5-15.5) % Lymphocytes # (1.0-4.8) k/uL PT (9.0-12.0) sec INR (<1.2) APTT (22.0-30.0) sec Carbon Dioxide (22-30) mmol/L BUN (7-17) mg/dL Creatinine (0.52-1.04) mg/dL Glucose (74-99) mg/dL Calcium (8.4-10.2) mg/dL Total Bilirubin (0.2-1.3) mg/dL AST (14-36) U/L ALT (4-34) U/L Alkaline Phosphatase (38-126) U/L Troponin I 0.060 H* (0.000-0.034) ng/mL Urine Appearance Cloudy H (Clear) Urine Protein 1+ H (Negative) Urine Blood Moderate H (Negative) Ur Leukocyte Esterase Trace H (Negative) Thrombosis Risk Factor Assmnt - Choose All That Apply Each Factor Represents 1 point: Obesity (BMI >25) Each Risk Factor Represents 2 Points: Age 61-74 years Thrombosis Risk Factor Assessment Total Risk Factor Score: 3 Thrombosis Risk Factor Assessment Level: Moderate Risk
[2022-08-16] MEDS ORDERED: INSULIN ASPART (NovoLOG) 100 UNIT/ML VIAL SQ PRN (17:47)
[2022-08-16] MEDS ORDERED: WARFARIN 0.5 MG TAB PO ONE (18:00)
--- NOTE | 2022-08-16 18:45 | US ---
EXAMINATION TYPE: US kidneys/renal and bladder DATE OF EXAM: 08/16/2022 COMPARISON: US: 08/03/22 CLINICAL HISTORY: deja. deja, creatinine doubled in 10 days EXAM MEASUREMENTS: Right Kidney: 10.0 x 4.2 x 5.0 cm Left Kidney: 9.4 x 4.5 x 4.6 cm Right Kidney: Dilated renal pelvis Left Kidney: Cyst see in sup pole measuring 1.8 x 1.5 x 1.4 cm Bladder: Not distended due to patient having a jewell Bilateral Jets seen: No Incidental finding: multiple gallstones visualized. IMPRESSION: Right renal pelvic ectasia. No overt bilateral hydronephrosis. Incidental cholelithiasis. Simple left renal cyst.
[2022-08-16 18:49] LABS: Appearance,Urine Cloudy (Clear); Bacteria,Urine Rare /hpf; Bilirubin,Urine Negative (Negative); Blood,Urine Large (Negative); Budding Yeast,Urine Few /hpf; Color,Urine Yellow; Glucose,Urine (UA) Negative (Negative); Hyaline Casts,Urine 22 /lpf (0-2); Ketones,Urine Negative (Negative); Leukocyte Esterase,Urine Moderate (Negative); Mucus,Urine Rare /hpf; Nitrite,Urine Negative (Negative); Protein,Urine 1+ (Negative); RBC,Urine 50 /hpf (0-5); Squamous Epithelial Cell,Urine 4 /hpf (0-4); Urobilinogen,Urine <2.0 mg/dL (<2.0); WBC,Urine 38 /hpf (0-5)
[2022-08-16] MEDS: lamoTRIgine 100 MG TAB PO SCH (21:34)
[2022-08-16] MEDS: MEMANTINE 10 MG TAB PO SCH (21:34)
[2022-08-16] MEDS: AMIODARONE 200 MG TAB PO SCH (21:34)
[2022-08-16] MEDS: FUROSEMIDE 10 MG/ML 4 ML VIAL IV SCH (21:34)
[2022-08-16] MEDS: OXYBUTYNIN XL 5 MG TAB.ER.24 PO SCH (21:34)
[2022-08-16] MEDS: SODIUM BICARBONATE TAB 650 MG TAB PO SCH (21:34)
[2022-08-16] MEDS: ATORVASTATIN 80 MG TAB PO SCH (21:34)
[2022-08-16] MEDS: SODIUM CHLORIDE 0.9% 250 ML IV SCH ×2 (21:48→21:49)
[2022-08-17 07:27] LABS: Calcium 7.5 mg/dL (8.4-10.2)
[2022-08-17 07:29] LABS: INR 3.3 (<1.2); Prothrombin Time 32.9 sec (9.0-12.0)
[2022-08-17] MEDS: SODIUM BICARBONATE TAB 650 MG TAB PO SCH ×2 (08:19→21:45)
[2022-08-17] MEDS: AMIODARONE 200 MG TAB PO SCH (08:19)
[2022-08-17] MEDS: PARoxetine 10 MG TAB PO SCH (08:19)
[2022-08-17 08:20] LABS: Basophils # (A) 0.1 k/uL (0-0.2); Basophils % (A) 1 %; Eosinophils % (A) 1 %; HCT 43.2 % (34.0-46.0); HGB 13.7 gm/dL (11.4-16.0); Hypochromasia Moderate; Lymphocytes # (A) 1.1 k/uL (1.0-4.8); Lymphocytes % (A) 19 %; MCH 28.9 pg (25.0-35.0); MCHC 31.6 g/dL (31.0-37.0); MCV 91.4 fL (80.0-100.0); Mean Platelet Volume 8.7; Monocytes # (A) 0.4 k/uL (0-1.0); Monocytes % (A) 7 %; Neutrophils % (A) 68 %; Platelet Count 140 k/uL (150-450); Poikilocytosis Slight; RBC 4.73 m/uL (3.80-5.40); RDW 15.8 % (11.5-15.5); WBC 5.9 k/uL (3.8-10.6)
[2022-08-17] MEDS: MEMANTINE 10 MG TAB PO SCH ×2 (08:26→21:46)
[2022-08-17] MEDS: FUROSEMIDE 10 MG/ML 4 ML VIAL IV SCH ×2 (08:33→21:46)
[2022-08-17] MEDS ORDERED: METOPROLOL SUCCINATE (ER) 50 MG TAB.ER.24H PO SCH (09:00)
[2022-08-17] MEDS ORDERED: BUMETANIDE 0.5 MG TABLET PO SCH (09:00)
[2022-08-17] MEDS ORDERED: LOSARTAN 25 MG TAB PO SCH (09:00)
--- NOTE | 2022-08-17 10:22 | P.NPCON ---
History of Present Illness - Reason for Consult acute renal failure, chronic renal failure - History of Present Illness Reason for admission: Acute kidney injury on chronic kidney disease History of present illness: Patient is a 71-year-old female seen in consultation for acute kidney injury on chronic kidney disease. Patient has chronic kidney disease stage IV secondary to diabetic kidney disease and cardiorenal syndrome with baseline creatinine near 2. Creatinine this admission was 4.66 and is 4.49 today. Patient presented to the hospital due to generalized weakness as well as worsening lower extremity edema. Patient has chronic systolic CHF with ejection fraction of 10- 15%. Daughter is present at bedside and states her legs were also swollen and she had contacted cardiology and was scheduled to see them yesterday afternoon but was too weak to make the appointment and came to the hospital. Edema has improved. She did receive a dose of IV Lasix yesterday. Patient was also taking Cozaar at home which is currently held. Blood pressure this morning was 101/64. Denies fever or chills. No vomiting or diarrhea. Has been waiting. Currently is a Tapia catheter. Urine output almost 1 L overnight. Chest x-ray suggestive of fluid overload. No hydronephrosis noted on kidney ultrasound. Denies use of nonsteroidals. No chest pain or shortness of breath. Currently on room air. Vital signs are stable. General: Awake. No acute distress. HEENT: Head exam is unremarkable. LUNGS:Breath sounds decreased. HEART: Rate and Rhythm are regular. ABDOMEN: Soft, no distention. EXTREMITITES: 1+ edema. Past Medical History Past Medical History: Diabetes Mellitus, Hyperlipidemia, Hypertension, Myocardial Infarction (DC) Additional Past Medical History / Comment(s): CHF, CKD Last Myocardial Infarction Date:: september 1991 History of Any Multi-Drug Resistant Organisms: None Reported Past Surgical History: Coronary Bypass/CABG Additional Past Surgical History / Comment(s): Open heart in 1998 Past Anesthesia/Blood Transfusion Reactions: No Reported Reaction Type of Cardiac Device: Permanent Pacemaker, AICD Device Placement Date:: 2001 Past Psychological History: Anxiety, Depression Smoking Status: Former smoker Past Alcohol Use History: None Reported Past Drug Use History: None Reported Additional Drug Use History / Comment(s): quit smoking in 1990 - Past Family History Sister(s) Family Medical History: Deep Vein Thrombosis (DVT) Mother Family Medical History: Diabetes Mellitus Additional Family Medical History / Comment(s): mitral valve problemsl; stroke; macular degeneration Father Additional Family Medical History / Comment(s): ? cardiac history Medications and Allergies Home Medications Medication Instructions Recorded Confirmed Type Bumetanide [BUMEX] 0.5 mg PO DAILY 06/28/14 08/16/22 History Metoprolol Succinate (ER) [Toprol 50 mg PO DAILY 06/28/14 08/16/22 History XL] Losartan [Cozaar] 25 mg PO DAILY 07/29/22 08/16/22 History Memantine [Namenda] 10 mg PO BID 07/29/22 08/16/22 History PARoxetine HCL [Paxil Cr] 37.5 mg PO DAILY 07/29/22 08/16/22 History Tolterodine [Detrol] 2 mg PO HS 07/29/22 08/16/22 History lamoTRIgine [LaMICtal] 200 mg PO HS 07/29/22 08/16/22 History Amiodarone [Cordarone] 200 mg PO BID #60 tab 08/03/22 08/16/22 Rx Atorvastatin [Lipitor] 80 mg PO HS 30 Days tab 08/03/22 08/16/22 Rx Sodium Bicarbonate Tab 650 mg PO BID #60 tab 08/03/22 08/16/22 Rx Cinacalcet [Sensipar] 30 mg PO SA 08/16/22 08/16/22 History Warfarin [Coumadin] 1 mg PO SUMOTUWEFRSA@2100 08/16/22 08/16/22 History Allergies Allergy/AdvReac Type Severity Reaction Status Date / Time Iodinated Contrast Media Allergy Rash/Hives Verified 08/16/22 12:58 iodine Allergy Rash/Hives Verified 08/16/22 12:58 nifedipine [From Procardia] Allergy Rash/Hives Verified 08/16/22 12:58 Physical Exam Vitals: Vital Signs Temp Pulse Pulse Resp BP BP Pulse Ox 08/17/22 08:17 97.3 F L 86 18 101/64 96 08/17/22 04:00 97.4 F L 89 18 124/82 96 08/17/22 02:00 92 18 08/17/22 00:00 97.4 F L 92 18 96/67 97 08/16/22 20:04 88 18 08/16/22 20:00 97.7 F 88 18 87/63 96 08/16/22 16:00 96.4 F L 85 16 91/55 93 L 08/16/22 13:54 83 18 127/104 95 08/16/22 12:28 81 18 104/61 96 08/16/22 11:19 89 08/16/22 11:11 77 18 97/76 97 Intake and Output 08/16/22 08/17/22 08/17/22 22:59 06:59 14:59 Intake Total 118 Output Total 250 50 Balance -132 -50 Intake: Oral 118 Output: Urine 250 50 Other: Voiding Method Indwelling Catheter Indwelling Catheter Indwelling Catheter Results - Lab Results Most recent lab results Calcium 7.5 mg/dL (8.4-10.2) L 08/17/22 06:27 Magnesium 2.3 mg/dL (1.6-2.3) 08/16/22 12:27 08/17/22 06:27 08/17/22 06:27 Assessment and Plan Plan: Assessment: 1. Acute kidney injury secondary to ATN secondary to cardiorenal syndrome. Creatinine 4.66 on admission and is 4.49 today. Nonoliguric. No hydronephrosis noted on ultrasound. 2. Chronic kidney disease stage IV secondary to diabetic kidney disease and cardiorenal syndrome with baseline creatinine near 2. 3. Acute on chronic systolic CHF with ejection fraction of 10-15%. 4. History of hypercalcemia with concern for primary hyperparathyroidism maintained on Sensipar. Rest of the workup was negative in July 2022. Patient has an appointment scheduled with endocrinology outpatient. Calcium 7.5 today. 5. Metabolic acidosis secondary to acute kidney injury maintain on oral bicarbonate. 6. Diabetes mellitus. 7. History of A. fib. Plan: Add IV Lasix 40 mg twice daily. Hold Cozaar. Hold sensipar for now as calcium on lower side. Avoid nephrotoxins. Add midodrine 5 mg 3 times daily. Hold for systolic blood pressure greater than 1:15. Continue to monitor renal function and urine output. Continue to assess daily for need for renal replacement therapy. Discussed with patient and her daughter present at bedside. Thank you for the consultation. I will continue to follow the patient with you during her hospital stay.
[2022-08-17] MEDS: MIDODRINE 5 MG TAB PO SCH ×2 (11:10→16:23)
[2022-08-17 11:58] LABS: Glucose,Whole Blood 123 mg/dL (70-110)
--- NOTE | 2022-08-17 12:17 | P.CRDCN ---
History of Present Illness History of present illness: HISTORY OF PRESENTING ILLNESS This is a pleasant 71-year-old patient who follows in the office with Dr. Oneill. She has a history of coronary artery disease s/p prior CABG in 1998, ischemic c ardiomyopathy, status post AICD, permanent atrial fibrillation anticoagulated on warfarin, hypertension, CKD, hyperlipidemia and diabetes. We have been asked to see in consultation for CHF and elevated troponin. Presented to the emergency department with complaints of progressive weakness with inability to even do her ADLs, increased edema of the lower extremities. Patient states after being disc harged from the hospital she has been progressively getting more weak in her bilateral lower extremities, difficulty walking, as well as generalized fatigue. She does have LE edema but has slightly improved from last admission per daughter and patient. She denies any chest pain, shortness of breath, lightheadedness, dizziness, syncope or near-syncope. She denies any palpitations, symptoms of orthopnea or PND. On admission patient found to be in acute renal failure with sCr 4.66 (prior creatinine 2.85) Last admission patient was seen by cardiology for CHF. DUring that admission patient Telemetry reviewed, around 4:30pm patient was tachycardic with HR >150s. Telemetry appears A fib w/ RVR vs V tach. This lasted for about 20 min. Patient was given IV amiodarone 150mg and started on IV drip. And she was transitioned to PO amiodarone DIAGNOSTICS * EKG reveals ventricular paced rhythm, with underlying atrial fibrillation. Heart rate 80. * Telemetry tracings indicate V paced * Chest xray persistent cardiomegaly, small bilateral pleural effusions.. * Laboratory reviewed, sodium 139, potassium 4.0, BUN 113, syncope 4.49, INR 3.3, hemoglobin 13.7, troponin 0.06, 0.05, 0.06 * Echocardiogram 07/30/2022 revealed EF 10-15%, severely dilated LV, mild MR, mild TR. * Current home cardiac medications include Coumadin 1 mg daily, Bumex 0.5 mg daily, metoprolol titrate 50 mg daily, losartan 25 mg daily, amiodarone 200 mg twice a day, atorvastatin 80 mg nightly. * Lexiscan stress test in 2013 with no evidence of stress-induced ischemia, shortly are fairly extensive prior myocardial infarction involving the distal two thirds of the septum, anterior wall, apex, distal one third of the inferio r wall, this is a fixed defect. REVIEW OF SYSTEMS At the time of my exam: CONSTITUTIONAL: Denies fever or chills. +generalized weakness and fatigue CARDIOVASCULAR: Denies chest pain, shortness of breath, orthopnea, PND or palpitations. RESPIRATORY: Denies cough. GASTROINTESTINAL: Denies abdominal pain, diarrhea, constipation, nausea or vomiting. MUSCULOSKELETAL: Denies myalgias. NEUROLOGIC: Denies numbness, tingling, headacbe or weakness. ENDOCRINE: +fatigue, Denies weight change, polydipsia or polyurina. GENITOURINARY: Denies burning, hematuria or urgency with micturation. HEMATOLOGIC: Denies history of anemia or bleeding. PHYSICAL EXAMINATION Blood pressure 101/64, heart 86, afebrile, saturation 96% on room air CONSTITUTIONAL: No apparent distress, frail HEENT: Head is normocephalic. Pupils are equal, round. Sclerae anicteric. Mucous membranes of the mouth are moist. No JVD. CHEST EXAMINATION: Lungs with mild crackles in the bases bilaterally to auscultation. No chest wall tenderness is noted on palpation or with deep breathing. HEART EXAMINATION:Irregular rate and rhythm. S1, S2 heard. Systolic ejection murmur at apex. No gallops or rub. ABDOMEN: Soft, nontender. Positive bowel sounds. EXTREMITIES: 2+ peripheral pulses, 2+bilateral pitting lower extremity edema and no calf tenderness. NEUROLOGIC EXAMINATION: Patient is awake, alert but lethargic and oriented x3. ASSESSMENT Evidence of myocardial injury, elevated troponin, without evidence of ischemia by symptoms, exam or EKG. Elevated troponin, likely related to acute kidney injury Acute kidney injury Chronic heart failure with reduced ejection fraction Coronary artery disease s/p prior CABG in 1998 Ischemic cardiomyopathy EF <20% status post AICD Permanent atrial fibrillation anticoagulated on warfarin Hypertension Chronic kidney disease Hyperlipidemia Type 2 Diabetes PLAN Nephrology following, managing IV Lasix currently on 40mg BID Decrease amiodarone Continue beta adriana ACEI/ARB on hold secondary to MILLY Monitor renal function and electrolytes Anticoagulation with coumadin Daily INR Further recommendations based on clinical course Nurse practitioner note has been reviewed by physician. Signing provider agrees with the documented findings, assessment, and plan of care. Past Medical History Past Medical History: Diabetes Mellitus, Hyperlipidemia, Hypertension, Myocardial Infarction (PR) Additional Past Medical History / Comment(s): CHF, CKD Last Myocardial Infarction Date:: september 1991 History of Any Multi-Drug Resistant Organisms: None Reported Past Surgical History: Coronary Bypass/CABG Additional Past Surgical History / Comment(s): Open heart in 1998 Past Anesthesia/Blood Transfusion Reactions: No Reported Reaction Type of Cardiac Device: Permanent Pacemaker, AICD Device Placement Date:: 2001 Past Psychological History: Anxiety, Depression Smoking Status: Former smoker Past Alcohol Use History: None Reported Past Drug Use History: None Reported Additional Drug Use History / Comment(s): quit smoking in 1990 - Past Family History Sister(s) Family Medical History: Deep Vein Thrombosis (DVT) Mother Family Medical History: Diabetes Mellitus Additional Family Medical History / Comment(s): mitral valve problemsl; stroke; macular degeneration Father Additional Family Medical History / Comment(s): ? cardiac history Medications and Allergies Home Medications Medication Instructions Recorded Confirmed Type Bumetanide [BUMEX] 0.5 mg PO DAILY 06/28/14 08/16/22 History Metoprolol Succinate (ER) [Toprol 50 mg PO DAILY 06/28/14 08/16/22 History XL] Losartan [Cozaar] 25 mg PO DAILY 07/29/22 08/16/22 History Memantine [Namenda] 10 mg PO BID 07/29/22 08/16/22 History PARoxetine HCL [Paxil Cr] 37.5 mg PO DAILY 07/29/22 08/16/22 History Tolterodine [Detrol] 2 mg PO HS 07/29/22 08/16/22 History lamoTRIgine [LaMICtal] 200 mg PO HS 07/29/22 08/16/22 History Amiodarone [Cordarone] 200 mg PO BID #60 tab 08/03/22 08/16/22 Rx Atorvastatin [Lipitor] 80 mg PO HS 30 Days tab 08/03/22 08/16/22 Rx Sodium Bicarbonate Tab 650 mg PO BID #60 tab 08/03/22 08/16/22 Rx Cinacalcet [Sensipar] 30 mg PO SA 08/16/22 08/16/22 History Warfarin [Coumadin] 1 mg PO SUMOTUWEFRSA@2100 08/16/22 08/16/22 History Allergies Allergy/AdvReac Type Severity Reaction Status Date / Time Iodinated Contrast Media Allergy Rash/Hives Verified 08/16/22 12:58 iodine Allergy Rash/Hives Verified 08/16/22 12:58 nifedipine [From Procardia] Allergy Rash/Hives Verified 08/16/22 12:58 Physical Exam Vitals: Vital Signs Temp Pulse Pulse Resp BP BP Pulse Ox 08/17/22 04:00 97.4 F L 89 18 124/82 96 08/17/22 02:00 92 18 08/17/22 00:00 97.4 F L 92 18 96/67 97 08/16/22 20:04 88 18 08/16/22 20:00 97.7 F 88 18 87/63 96 08/16/22 16:00 96.4 F L 85 16 91/55 93 L 08/16/22 13:54 83 18 127/104 95 08/16/22 12:28 81 18 104/61 96 08/16/22 11:19 89 08/16/22 11:11 77 18 97/76 97 Intake and Output 08/16/22 08/17/22 08/17/22 22:59 06:59 14:59 Intake Total 118 Output Total 250 50 Balance -132 -50 Intake: Oral 118 Output: Urine 250 50 Other: Voiding Method Indwelling Catheter Indwelling Catheter Results 08/17/22 06:27 08/17/22 06:27 Cardiac Enzymes 08/16/22 08/16/22 08/16/22 Range/Units 12:27 12:27 15:38 AST 67 H (14-36) U/L Troponin I 0.060 H* 0.057 H* (0.000-0.034) ng/mL 08/16/22 Range/Units 19:25 AST (14-36) U/L Troponin I 0.060 H* (0.000-0.034) ng/mL Coagulation 08/16/22 Range/Units 12:27 PT 24.2 H (9.0-12.0) sec APTT 30.6 H (22.0-30.0) sec CBC 08/16/22 Range/Units 12:27 WBC 7.0 (3.8-10.6) k/uL RBC 5.10 (3.80-5.40) m/uL Hgb 15.0 (11.4-16.0) gm/dL Hct 46.4 H (34.0-46.0) % Plt Count 190 (150-450) k/uL Comprehensive Metabolic Panel 08/16/22 Range/Units 12:27 Sodium 138 (137-145) mmol/L Potassium 4.3 (3.5-5.1) mmol/L Chloride 99 (98-107) mmol/L Carbon Dioxide 21 L (22-30) mmol/L BUN 112 H* (7-17) mg/dL Creatinine 4.66 H (0.52-1.04) mg/dL Glucose 130 H (74-99) mg/dL Calcium 7.9 L (8.4-10.2) mg/dL AST 67 H (14-36) U/L ALT 83 H (4-34) U/L Alkaline Phosphatase 221 H (38-126) U/L Total Protein 6.3 (6.3-8.2) g/dL Albumin 3.7 (3.5-5.0) g/dL Current Medications Generic Name Dose Route Start Last Admin Trade Name Freq PRN Reason Stop Dose Admin Amiodarone HCl 200 mg 08/16/22 21:00 08/16/22 21:34 Amiodarone 200 Mg Tab PO 200 mg BID ANGIE Administration Atorvastatin Calcium 80 mg 08/16/22 21:00 08/16/22 21:34 Atorvastatin 80 Mg Tab PO 80 mg HS ANGIE Administration Cinacalcet 30 mg 08/18/22 09:00 Cinacalcet 30 Mg Tab PO SA ANGIE Furosemide 40 mg 08/16/22 21:00 08/16/22 21:34 Furosemide 10 Mg/Ml 4 Ml Vial IV Not Given Q12HR ANGIE Insulin Aspart 2 - 10 unit 08/16/22 17:47 Insulin Aspart (Novolog) 100 Unit/Ml Vial SQ Q8H PRN HYPERGLYCEMIA Protocol Lamotrigine 200 mg 08/16/22 21:00 08/16/22 21:34 Lamotrigine 100 Mg Tab PO 200 mg HS ANGIE Administration Memantine 10 mg 08/16/22 21:00 08/16/22 21:34 Memantine 10 Mg Tab PO 10 mg BID ANGIE Administration Metoprolol Succinate 50 mg 08/17/22 09:00 Metoprolol Succinate (Er) 50 Mg Tab.Er.24h PO DAILY ANGIE Miscellaneous Information 0 each 08/16/22 14:07 Warfarin Per Pharmacy MISCELLANE DIRECTED PRN PER PHARMACY DOSING POLICY Naloxone HCl 0.2 mg 08/16/22 13:56 Naloxone 0.4 Mg/Ml 1 Ml Vial IV Q2M PRN Opioid Reversal Oxybutynin Chloride 5 mg 08/16/22 21:00 08/16/22 21:34 Oxybutynin Xl 5 Mg Tab.Er.24 PO 5 mg HS ANGIE Administration Paroxetine HCl 30 mg 08/17/22 09:00 Paroxetine 10 Mg Tab PO DAILY ANGIE Sodium Bicarbonate 650 mg 08/16/22 21:00 08/16/22 21:34 Sodium Bicarbonate Tab 650 Mg Tab PO 650 mg BID ANGIE Administration Warfarin Sodium 1 mg 08/17/22 21:00 Warfarin 1 Mg Tab PO [id number]@2100 [facility] Protocol Intake and Output 08/16/22 08/17/22 08/17/22 22:59 06:59 14:59 Intake Total 118 Output Total 250 50 Balance -132 -50 Intake: Oral 118 Output: Urine 250 50 Other: Voiding Method Indwelling Catheter Indwelling Catheter 08/16/22 12:27 08/16/22 12:27
--- NOTE | 2022-08-17 13:12 | P.PN ---
Subjective Progress Note Date: 08/17/22 Progress note Date of service 08/17/[address] So Patient seen and evaluated discussed with her daughter and her sister. Laboratory: WBC 5.9 hemoglobin 13.7 hematocrit 43.2, MCV 91.4. Platelet count 140. Her pro time 32.9 with the INR 3.3 and pharmacy is adjusting the dose for the warfarin. Chemistry indicating potassium 4 carbon dioxide 24 BUN 113 and creatinine 4.49 EGFR for non- is [address] Pathak the medication adjusted and there is on midodrine and blood sugar is controlled with blood sugar 123 her calcium also 7.5 Troponin still elevated 0.060 Urine analysis analysis indicating that cloudy urine 1+ protein and moderate leukocyte esterase 50 RBCs 38 WBCs with the moderate clumps of WBCs. Also found to be few yeast budding and hyaline cast 22 and bacteria is rare. Urine culture requested final result not available yet. Patient seen by both consult cardiology through the nurse of dictation Also seen by Dr. Fried the translator deaf. Vital sign: Temperature 97.8 F oral pulse rate of 90 with irregularities and she had history of atrial fibrillation she is also on anticoagulant. Her respiratory rate 16, blood pressure ranging between 101/6491/55 she is also 97% on room air pulse ox. Head was normocephalic and atraumatic pupils equal reactive oropharynx natural disease she has lost her appetite. She did not eat breakfast as well as in the lunch is in front of her with no eating and she refused supplementation when they ask her to have as i.e. boost or insure. Patient had also chronic depression Lung was herniated with the normal breath sounds decreased air entry on the basis Heart regular intermittently changed to regular irregularities with atrial fib. With the ischemic cardiomyopathy. Inferior to cardiology note. Renal: She had Tapia catheter in place with nonoliguric acute kidney injury and renal failure. Failure to Dr. Fried nephrology. Abdomen is soft positive bowel sounds. Extremities some improvement on the edema of the lower extremities with the draining of the Tapia catheter Waiting for the urine culture and sensitivity. Assessment: #1 asthenia, loss of appetite, depression #2 acute kidney injury, nonoliguric renal failure with the progression with stage IV monitored by nephrology #3 ischemic cardiomyopathy with the ejection fraction of 10-15%, associated with chronic congestive heart failure #4 history of hypotension below 90 resuscitated lost night with the small bolus 250 mg of normal saline with improvement of the blood pressure. Plan: Continue current medication #2 will follow the recommendation of the cardiology #3 follow the recommendation and treatment from the nephrology Discussed with the CODE STATUS yesterday on admission and extended time with her daughter and the patient and her sister and elected full code so far Prognosis is guarded with 2 organisms failure. Objective - Vital Signs Vital signs: Vital Signs Temp 97.8 F 08/17/22 11:18 Pulse 90 08/17/22 11:18 Resp 16 08/17/22 11:18 BP 91/55 08/17/22 11:18 Pulse Ox 97 08/17/22 11:18 FiO2 Intake & Output 08/16/22 08/17/22 08/17/22 18:59 06:59 18:59 Intake Total 118 Output Total 670 300 Balance -552 -300 Weight 72.575 kg Intake: Oral 118 Output: Urine 670 300 Uretheral (Tapia) 400 Other: Voiding Method Indwelling Catheter Indwelling Catheter - Labs CBC & Chem 7: 08/17/22 06:27 08/17/22 06:27 Labs: Abnormal Lab Results - Last 24 Hours (Table) 08/16/22 08/16/22 08/16/22 Range/Units 12:27 12:27 12:27 Hct 46.4 H (34.0-46.0) % RDW 16.0 H (11.5-15.5) % Plt Count (150-450) k/uL Lymphocytes # 0.9 L (1.0-4.8) k/uL PT (9.0-12.0) sec INR (<1.2) Carbon Dioxide 21 L (22-30) mmol/L BUN 112 H* (7-17) mg/dL Creatinine 4.66 H (0.52-1.04) mg/dL Glucose 130 H (74-99) mg/dL POC Glucose (mg/dL) (70-110) mg/dL Calcium 7.9 L (8.4-10.2) mg/dL Total Bilirubin 1.6 H (0.2-1.3) mg/dL AST 67 H (14-36) U/L ALT 83 H (4-34) U/L Alkaline Phosphatase 221 H (38-126) U/L Troponin I 0.060 H* (0.000-0.034) ng/mL Urine Appearance (Clear) Urine Protein (Negative) Urine Blood (Negative) Ur Leukocyte Esterase (Negative) Urine RBC (0-5) /hpf Urine WBC (0-5) /hpf Urine WBC Clumps (None) /hpf Urine Bacteria (None) /hpf Hyaline Casts (0-2) /lpf Urine Mucus (None) /hpf Urine Yeast (Budding) (None) /hpf 08/16/22 08/16/22 08/16/22 Range/Units 13:54 15:38 18:42 Hct (34.0-46.0) % RDW (11.5-15.5) % Plt Count (150-450) k/uL Lymphocytes # (1.0-4.8) k/uL PT (9.0-12.0) sec INR (<1.2) Carbon Dioxide (22-30) mmol/L BUN (7-17) mg/dL Creatinine (0.52-1.04) mg/dL Glucose (74-99) mg/dL POC Glucose (mg/dL) (70-110) mg/dL Calcium (8.4-10.2) mg/dL Total Bilirubin (0.2-1.3) mg/dL AST (14-36) U/L ALT (4-34) U/L Alkaline Phosphatase (38-126) U/L Troponin I 0.057 H* (0.000-0.034) ng/mL Urine Appearance Cloudy H Cloudy H (Clear) Urine Protein 1+ H 1+ H (Negative) Urine Blood Moderate H Large H (Negative) Ur Leukocyte Esterase Trace H Moderate H (Negative) Urine RBC 50 H (0-5) /hpf Urine WBC 38 H (0-5) /hpf Urine WBC Clumps Moderate H (None) /hpf Urine Bacteria Rare H (None) /hpf Hyaline Casts 22 H (0-2) /lpf Urine Mucus Rare H (None) /hpf Urine Yeast (Budding) Few H (None) /hpf 08/16/22 08/17/22 08/17/22 Range/Units 19:25 06:27 06:27 Hct (34.0-46.0) % RDW 15.8 H (11.5-15.5) % Plt Count 140 L (150-450) k/uL Lymphocytes # (1.0-4.8) k/uL PT (9.0-12.0) sec INR (<1.2) Carbon Dioxide (22-30) mmol/L BUN 113 H* (7-17) mg/dL Creatinine 4.49 H (0.52-1.04) mg/dL Glucose (74-99) mg/dL POC Glucose (mg/dL) (70-110) mg/dL Calcium 7.5 L (8.4-10.2) mg/dL Total Bilirubin (0.2-1.3) mg/dL AST (14-36) U/L ALT (4-34) U/L Alkaline Phosphatase (38-126) U/L Troponin I 0.060 H* (0.000-0.034) ng/mL Urine Appearance (Clear) Urine Protein (Negative) Urine Blood (Negative) Ur Leukocyte Esterase (Negative) Urine RBC (0-5) /hpf Urine WBC (0-5) /hpf Urine WBC Clumps (None) /hpf Urine Bacteria (None) /hpf Hyaline Casts (0-2) /lpf Urine Mucus (None) /hpf Urine Yeast (Budding) (None) /hpf 08/17/22 08/17/22 Range/Units 06:27 11:57 Hct (34.0-46.0) % RDW (11.5-15.5) % Plt Count (150-450) k/uL Lymphocytes # (1.0-4.8) k/uL PT 32.9 H (9.0-12.0) sec INR 3.3 H (<1.2) Carbon Dioxide (22-30) mmol/L BUN (7-17) mg/dL Creatinine (0.52-1.04) mg/dL Glucose (74-99) mg/dL POC Glucose (mg/dL) 123 H (70-110) mg/dL Calcium (8.4-10.2) mg/dL Total Bilirubin (0.2-1.3) mg/dL AST (14-36) U/L ALT (4-34) U/L Alkaline Phosphatase (38-126) U/L Troponin I (0.000-0.034) ng/mL Urine Appearance (Clear) Urine Protein (Negative) Urine Blood (Negative) Ur Leukocyte Esterase (Negative) Urine RBC (0-5) /hpf Urine WBC (0-5) /hpf Urine WBC Clumps (None) /hpf Urine Bacteria (None) /hpf Hyaline Casts (0-2) /lpf Urine Mucus (None) /hpf Urine Yeast (Budding) (None) /hpf Microbiology - Last 24 Hours (Table) 08/16/22 18:42 Urine Culture - Preliminary Urine,Clean Catch
[2022-08-17 17:03] LABS: Glucose,Whole Blood 154 mg/dL (70-110)
[2022-08-17] MEDS ORDERED: WARFARIN 0.5 MG TAB PO ONE (18:00)
[2022-08-17 20:20] LABS: Glucose,Whole Blood 156 mg/dL (70-110)
[2022-08-17] MEDS ORDERED: WARFARIN 1 MG TAB PO SCH (21:00)
[2022-08-17] MEDS: ATORVASTATIN 80 MG TAB PO SCH (21:45)
[2022-08-17] MEDS: lamoTRIgine 100 MG TAB PO SCH (21:45)
[2022-08-17] MEDS: OXYBUTYNIN XL 5 MG TAB.ER.24 PO SCH (21:46)
[2022-08-18 00:14] LABS: Glucose,Whole Blood 154 mg/dL (70-110)
[2022-08-18 01:26] LABS: Magnesium 1.8 mg/dL (1.6-2.3); Potassium 3.9 mmol/L (3.5-5.1)
[2022-08-18] MEDS ORDERED: MIDODRINE 5 MG TAB PO ONE (01:45)
[2022-08-18] MEDS ORDERED: CALCIUM GLUCONATE IN NACL 2 GM in SALINE 1 100ML.BAG IVPB ONE (02:00)
[2022-08-18] MEDS ORDERED: NOREPINEPHRINE 4 MG in SODIUM CHLORIDE 0.9% 250 ML IV SCH (02:15)
[2022-08-18 02:22] LABS: Glucose,Whole Blood 185 mg/dL (70-110)
[2022-08-18] MEDS ORDERED: SODIUM BICARB 8.4% 50 ML SYR (1 MEQ/ML) IV STA (06:51)
[2022-08-18 06:53] LABS: Glucose,Whole Blood 182 mg/dL (70-110)
[2022-08-18 06:56] LABS: INR 4.8 (<1.2); Prothrombin Time 47.5 sec (9.0-12.0)
[2022-08-18 07:01] LABS: Basophils # (A) 0.1 k/uL (0-0.2); Basophils % (A) 1 %; Eosinophils % (A) 0 %; HCT 48.7 % (34.0-46.0); HGB 15.2 gm/dL (11.4-16.0); Hypochromasia Marked; Lymphocytes # (A) 1.1 k/uL (1.0-4.8); Lymphocytes % (A) 12 %; MCH 29.6 pg (25.0-35.0); MCHC 31.3 g/dL (31.0-37.0); MCV 94.6 fL (80.0-100.0); Mean Platelet Volume 9.2; Monocytes # (A) 0.9 k/uL (0-1.0); Monocytes % (A) 10 %; Neutrophils # (A) 6.6 k/uL (1.3-7.7); Neutrophils % (A) 74 %; Platelet Count 144 k/uL (150-450); Poikilocytosis Slight; RBC 5.14 m/uL (3.80-5.40); RDW 15.8 % (11.5-15.5)
[2022-08-18] MEDS: MIDODRINE 5 MG TAB PO SCH ×3 (07:03→17:03)
--- NOTE | 2022-08-18 07:25 | XR ---
EXAMINATION TYPE: XR chest 1V DATE OF EXAM: 08/18/2022 COMPARISON: 08/16/2022 HISTORY: 71-year-old female CHF TECHNIQUE: Single frontal view of the chest is obtained. FINDINGS: Left anterior chest wall AICD generator with right atrial and right ventricular leads. Median sternot emily wires. There is an open annuloplasty ring noted projecting at the left side of the heart. Heart m ild to moderately enlarged. Hyperinflation. Diffuse interstitial and patchy opacities bilaterally tyesha ng with trace bilateral pleural effusions. Relatively similar to prior allowing for differences in po sition. IMPRESSION: Ongoing CHF with mild patchy interstitial pulmonary edema. Continued trace effusions with adjacent at electasis and/or consolidation.
[2022-08-18 07:27] LABS: Calcium 7.9 mg/dL (8.4-10.2); Magnesium 2.1 mg/dL (1.6-2.3); Phosphorus 5.9 mg/dL (2.5-4.5); Potassium 4.5 mmol/L (3.5-5.1)
--- NOTE | 2022-08-18 07:41 | P.PN ---
Subjective Progress Note Date: 08/18/22 Principal diagnosis: Severe ischemic cardiomyopathy This is a 72-year-old female patient with a past medical history significant for CAD and status post CABG and severe ischemic cardiomyopathy with EF 10% based on recent echocardiogram as well as permanent atrial fibrillation and also status post AICD and also chronic kidney disease. The patient was seen as a consult yesterday on the floor for further evaluation off abnormal cardiac enzymes after she presented with heart failure. This is her second admission within the last few weeks. We treated the mildly abnormal troponin medically giving that she was not experiencing any chest pain or chest discomfort and in the light of her renal failure. August [id number] The patient was transferred to the intensive care unit last night. Apparently she went to bathroom and when she was on the bathroom she felt weak. She did have an episode of nonsustained V. tach associated with low blood pressure. She was transferred to the intensive care unit. Potential review her pressure was in the 90s. Losartan was held. She started on midodrine. Nephrology service. Currently she is not on any vasopressors. She is feeling weak and tired. I am going to stop the metoprolol and increase the dose of amiodarone giving the low blood pressure. Beside that the CODE STATUS was addressed with the family and currently she is DO NOT RESUSCITATE. Overall the prognosis is extremely poor giving the severe cardiomyopathy and overall cardiac condition Objective - Vital Signs Vital signs: Vital Signs Temp 97.9 F 08/18/22 00:00 Pulse 98 08/18/22 07:00 Resp 16 08/18/22 07:00 BP 114/74 08/18/22 07:00 Pulse Ox 97 08/18/22 07:00 FiO2 Intake & Output 08/17/22 08/18/22 08/18/22 18:59 06:59 18:59 Intake Total 580 100 Output Total 900 403 15 Balance -320 -303 -15 Intake: Intake, IV Titration 100 Amount Calcium Gluconate in NaCl 100 2 gm In Saline 1 100ml. bag @ 100 mls/hr IVPB ONCE ONE Rx#:[id number] Oral 580 Output: Urine 900 403 15 Uretheral (Tapia) 250 Other: Voiding Method Indwelling Catheter Indwelling Catheter # Bowel Movements 1 - Constitutional General appearance: Present: no acute distress - Respiratory Respiratory: bilateral: diminished - Cardiovascular Rhythm: irregularly irregular Heart sounds: normal: S1, S2 Abnormal Heart Sounds: Present: systolic murmur - Labs CBC & Chem 7: 08/18/22 06:16 08/18/22 00:37 Labs: Abnormal Lab Results - Last 24 Hours (Table) 08/17/22 08/17/22 08/17/22 Range/Units 06:27 11:57 17:01 Hct (34.0-46.0) % RDW 15.8 H (11.5-15.5) % Plt Count 140 L (150-450) k/uL PT (9.0-12.0) sec INR (<1.2) Chloride (98-107) mmol/L Carbon Dioxide (22-30) mmol/L BUN (7-17) mg/dL Creatinine (0.52-1.04) mg/dL Glucose (74-99) mg/dL POC Glucose (mg/dL) 123 H 154 H (70-110) mg/dL Calcium (8.4-10.2) mg/dL 08/17/22 08/18/22 08/18/22 Range/Units 20:18 00:08 00:37 Hct (34.0-46.0) % RDW (11.5-15.5) % Plt Count (150-450) k/uL PT (9.0-12.0) sec INR (<1.2) Chloride 109 H (98-107) mmol/L Carbon Dioxide 15 L (22-30) mmol/L BUN 100 H (7-17) mg/dL Creatinine 3.66 H (0.52-1.04) mg/dL Glucose 127 H (74-99) mg/dL POC Glucose (mg/dL) 156 H 154 H (70-110) mg/dL Calcium 6.0 L* (8.4-10.2) mg/dL 08/18/22 08/18/22 08/18/22 Range/Units 02:21 06:16 06:16 Hct 48.7 H (34.0-46.0) % RDW 15.8 H (11.5-15.5) % Plt Count 144 L (150-450) k/uL PT 47.5 H (9.0-12.0) sec INR 4.8 H (<1.2) Chloride (98-107) mmol/L Carbon Dioxide (22-30) mmol/L BUN (7-17) mg/dL Creatinine (0.52-1.04) mg/dL Glucose (74-99) mg/dL POC Glucose (mg/dL) 185 H (70-110) mg/dL Calcium (8.4-10.2) mg/dL 08/18/22 Range/Units 06:51 Hct (34.0-46.0) % RDW (11.5-15.5) % Plt Count (150-450) k/uL PT (9.0-12.0) sec INR (<1.2) Chloride (98-107) mmol/L Carbon Dioxide (22-30) mmol/L BUN (7-17) mg/dL Creatinine (0.52-1.04) mg/dL Glucose (74-99) mg/dL POC Glucose (mg/dL) 182 H (70-110) mg/dL Calcium (8.4-10.2) mg/dL Microbiology - Last 24 Hours (Table) 08/16/22 18:42 Urine Culture - Final Urine,Clean Catch Assessment and Plan Assessment: Assessment Severe ischemic cardiomyopathy Severe and status post CABG Permanent atrial fibrillation Status post AICD Chronic kidney disease Multiple comorbid conditions Plan Continue the current medical regimen I would suggest decrease the dose of Lasix in the light of low blood pressure DC metoprolol Increase the dose of amiodarone Follow-up with the patient
[2022-08-18] MEDS ORDERED: FUROSEMIDE 10 MG/ML 4 ML VIAL IV STA (08:12)
[2022-08-18] MEDS: AMIODARONE 200 MG TAB PO SCH (08:49)
[2022-08-18] MEDS: SODIUM BICARBONATE TAB 650 MG TAB PO SCH ×2 (08:49→21:51)
[2022-08-18] MEDS: MEMANTINE 10 MG TAB PO SCH ×2 (08:51→22:13)
[2022-08-18] MEDS ORDERED: AMIODARONE 200 MG TAB PO SCH (09:00)
[2022-08-18] MEDS ORDERED: CINACALCET 30 MG TAB PO SCH (09:00)
[2022-08-18] MEDS ORDERED: AMIODARONE 100 MG TAB PO SCH (09:00)
[2022-08-18] MEDS: PARoxetine 10 MG TAB PO SCH (09:02)
--- NOTE | 2022-08-18 10:01 | P.PN ---
Subjective patient is seen in follow-up for acute kidney injury on chronic kidney disease. patient now in the ICU. Patient felt weak while going to the bathroom and had a short run of V. tach. Blood pressure was noted to be low. dose of midodrine increased. not on vasopressors. Blood pressure 114/74 this morning. did receive a dose of IV Lasix this morning with improvement in urine output. Creatinine worse today. Vital signs are stable. General: await. Resting in bed. HEENT: Head exam is unremarkable. LUNGS: Breath sounds decreased. HEART: Rate and Rhythm are regular. ABDOMEN: soft, no distention. EXTREMITITES: 1+ edema. Objective - Vital Signs Vital signs: Vital Signs Temp 97.9 F 08/18/22 00:00 Pulse 98 08/18/22 07:00 Resp 16 08/18/22 07:00 BP 114/74 08/18/22 07:00 Pulse Ox 97 08/18/22 07:00 FiO2 Intake & Output 08/17/22 08/18/22 08/18/22 18:59 06:59 18:59 Intake Total 580 100 Output Total 900 403 145 Balance -320 -303 -145 Intake: Intake, IV Titration 100 Amount Calcium Gluconate in NaCl 100 2 gm In Saline 1 100ml. bag @ 100 mls/hr IVPB ONCE ONE Rx#:[id number] Oral 580 Output: Urine 900 403 145 Uretheral (Tapia) 250 Other: Voiding Method Indwelling Catheter Indwelling Catheter # Bowel Movements 1 - Labs CBC & Chem 7: 08/18/22 06:16 08/18/22 06:16 Labs: Abnormal Lab Results - Last 24 Hours (Table) 08/17/22 08/17/22 08/17/22 Range/Units 11:57 17:01 20:18 Hct (34.0-46.0) % RDW (11.5-15.5) % Plt Count (150-450) k/uL PT (9.0-12.0) sec INR (<1.2) Chloride (98-107) mmol/L Carbon Dioxide (22-30) mmol/L BUN (7-17) mg/dL Creatinine (0.52-1.04) mg/dL Glucose (74-99) mg/dL POC Glucose (mg/dL) 123 H 154 H 156 H (70-110) mg/dL Calcium (8.4-10.2) mg/dL Phosphorus (2.5-4.5) mg/dL 08/18/22 08/18/22 08/18/22 Range/Units 00:08 00:37 02:21 Hct (34.0-46.0) % RDW (11.5-15.5) % Plt Count (150-450) k/uL PT (9.0-12.0) sec INR (<1.2) Chloride 109 H (98-107) mmol/L Carbon Dioxide 15 L (22-30) mmol/L BUN 100 H (7-17) mg/dL Creatinine 3.66 H (0.52-1.04) mg/dL Glucose 127 H (74-99) mg/dL POC Glucose (mg/dL) 154 H 185 H (70-110) mg/dL Calcium 6.0 L* (8.4-10.2) mg/dL Phosphorus (2.5-4.5) mg/dL 08/18/22 08/18/22 08/18/22 Range/Units 06:16 06:16 06:16 Hct 48.7 H (34.0-46.0) % RDW 15.8 H (11.5-15.5) % Plt Count 144 L (150-450) k/uL PT 47.5 H (9.0-12.0) sec INR 4.8 H (<1.2) Chloride (98-107) mmol/L Carbon Dioxide 20 L (22-30) mmol/L BUN 113 H* (7-17) mg/dL Creatinine 4.58 H (0.52-1.04) mg/dL Glucose 167 H (74-99) mg/dL POC Glucose (mg/dL) (70-110) mg/dL Calcium 7.9 L (8.4-10.2) mg/dL Phosphorus 5.9 H (2.5-4.5) mg/dL 08/18/22 Range/Units 06:51 Hct (34.0-46.0) % RDW (11.5-15.5) % Plt Count (150-450) k/uL PT (9.0-12.0) sec INR (<1.2) Chloride (98-107) mmol/L Carbon Dioxide (22-30) mmol/L BUN (7-17) mg/dL Creatinine (0.52-1.04) mg/dL Glucose (74-99) mg/dL POC Glucose (mg/dL) 182 H (70-110) mg/dL Calcium (8.4-10.2) mg/dL Phosphorus (2.5-4.5) mg/dL Microbiology - Last 24 Hours (Table) 08/16/22 18:42 Urine Culture - Final Urine,Clean Catch Assessment and Plan Plan: Assessment: 1. Acute kidney injury secondary to ATN secondary to cardiorenal syndrome. Creatinine 4.66 on admission and improved to 3.66 as of last night - 4.58 this morning - renal function worsened from hypotension and V. tach. Nonoliguric. No hydronephrosis noted on ultrasound. 2. Chronic kidney disease stage IV secondary to diabetic kidney disease and cardiorenal syndrome with baseline creatinine near 2. 3. Acute on chronic systolic CHF with ejection fraction of 10-15%. 4. History of hypercalcemia with concern for primary hyperparathyroidism maintained on Sensipar. Rest of the workup was negative in July 2022. Deniz liviajohnna has an appointment scheduled with endocrinology outpatient. Calcium was replaced. 7.9 this morning. 5. Metabolic acidosis secondary to acute kidney injury maintained on oral bicarbonate. better. 6. Diabetes mellitus. 7. History of A. fib. 8. Volume overload. Worsened with 1.5 L of fluid given last night. Plan: status post IV Lasix this morning. continue to hold Cozaar. continue to hold sensipar for now as calcium on lower side. Avoid nephrotoxins. dose of midodrine increased. Hold for systolic blood pressure greater than 115. Continue to monitor renal function and urine output. Continue to assess daily for need for renal replacement therapy. Discussed with patient and her daughter present at bedside. patient is not an ideal candidate for renal replacement therapy due to severe ischemic cardiomyopathy.
--- NOTE | 2022-08-18 11:15 | P.CNPUL ---
History of Present Illness Consult date: 08/18/22 Requesting physician: Levy So Reason for consult: other Chief complaint: Hypotension. History of present illness: Pulmonary consult dated 08/18/2022. 71-year-old female who was admitted through the emergency department on August 16, brought in by EMS, weakness, shortness of breath, and was found to have heart failure, and acute kidney injury. She came to the intensive care unit on August 17, having had a vasovagal episode, with hypotensive, and a short run of ventricular tachycardia. The nurses call me, and we attempted to keep her on the floor by giving her midodrine, and fluids, but in the end, her blood pressure never responded, and she had to come to the intensive care unit. Currently, she is on 2 L of oxygen. She's not receiving any IV fluids. She never required any pressor such as norepinephrine. The patient is a DO NOT INTUBATE patient. I do not know that yesterday we'll be reviewing with her. She does have a history of diabetes, hyperlipidemia, hypertension, myocardial infarction, CHF, and previous bypass surgery. She also has an AICD device in. White count 9, hemoglobin 15.2, hematocrit 48.7, and platelet count 244,000. PTT is 47.5. INR 4.8. Sodium 140, potassium 4.5, chlorides 104, CO2 20, BUN 113, anion gap 16, and creatinine 4.58. Chest x-ray dated August 18 does show evidence of fluid overload/CHF. Both cardiology and nephrology have been consulted. Review of Systems REVIEW OF SYSTEMS: CONSTITUTIONAL: Mental status changes. NEUROLOGIC: Mental status changes. HEENT: [ Negative.] CARDIAC: CHF. Vasovagal episode. Hypotension. PULMONARY: [Negative.] GI: [Negative.] : [Negative.] RHEUMATOLOGIC: [ Negative.] IMMUNOLOGIC: [ Negative.] ENDOCRINE: [Negative. ] DERMATOLOGIC: [Negative.] Past Medical History Past Medical History: Diabetes Mellitus, Hyperlipidemia, Hypertension, Myocardial Infarction ([place]) Additional Past Medical History / Comment(s): CHF, CKD Last Myocardial Infarction Date:: september 1991 History of Any Multi-Drug Resistant Organisms: None Reported Past Surgical History: Coronary Bypass/CABG Additional Past Surgical History / Comment(s): Open heart in 1998 Past Anesthesia/Blood Transfusion Reactions: No Reported Reaction Type of Cardiac Device: Permanent Pacemaker, AICD Device Placement Date:: 2001 Past Psychological History: Anxiety, Depression Smoking Status: Former smoker Past Alcohol Use History: None Reported Past Drug Use History: None Reported Additional Drug Use History / Comment(s): quit smoking in 1990 - Past Family History Sister(s) Family Medical History: Deep Vein Thrombosis (DVT) Mother Family Medical History: Diabetes Mellitus Additional Family Medical History / Comment(s): mitral valve problemsl; stroke; macular degeneration Father Additional Family Medical History / Comment(s): ? cardiac history Medications and Allergies Home Medications Medication Instructions Recorded Confirmed Type Bumetanide [BUMEX] 0.5 mg PO DAILY 06/28/14 08/16/22 History Metoprolol Succinate (ER) [Toprol 50 mg PO DAILY 06/28/14 08/16/22 History XL] Losartan [Cozaar] 25 mg PO DAILY 07/29/22 08/16/22 History Memantine [Namenda] 10 mg PO BID 07/29/22 08/16/22 History PARoxetine HCL [Paxil Cr] 37.5 mg PO DAILY 07/29/22 08/16/22 History Tolterodine [Detrol] 2 mg PO HS 07/29/22 08/16/22 History lamoTRIgine [LaMICtal] 200 mg PO HS 07/29/22 08/16/22 History Amiodarone [Cordarone] 200 mg PO BID #60 tab 08/03/22 08/16/22 Rx Atorvastatin [Lipitor] 80 mg PO HS 30 Days tab 08/03/22 08/16/22 Rx Sodium Bicarbonate Tab 650 mg PO BID #60 tab 08/03/22 08/16/22 Rx Cinacalcet [Sensipar] 30 mg PO SA 08/16/22 08/16/22 History Warfarin [Coumadin] 1 mg PO SUMOTUWEFRSA@2100 08/16/22 08/16/22 History Allergies Allergy/AdvReac Type Severity Reaction Status Date / Time Iodinated Contrast Media Allergy Rash/Hives Verified 08/16/22 12:58 iodine Allergy Rash/Hives Verified 08/16/22 12:58 nifedipine [From Procardia] Allergy Rash/Hives Verified 08/16/22 12:58 Physical Exam Osteopathic Statement: *. No significant issues noted on an osteopathic structural exam other than those noted in the History and Physical/Consult. Vitals: Vital Signs Temp Pulse Pulse Resp BP BP Pulse Ox 08/18/22 11:00 78 17 103/68 98 08/18/22 10:00 67 11 L 107/72 98 08/18/22 09:00 86 11 L 99/73 98 08/18/22 08:00 96.5 F L 82 9 L 105/71 98 08/18/22 07:00 98 16 114/74 97 08/18/22 06:00 76 10 L 100/66 97 08/18/22 05:00 84 16 111/75 97 08/18/22 04:00 90 18 104/71 97 08/18/22 03:00 90 11 L 100/63 97 08/18/22 02:20 82 12 95/74 08/18/22 02:11 78 17 72/54 99 08/18/22 02:00 17 08/18/22 00:30 64/22 08/18/22 00:00 97.9 F 88 17 106/76 95 08/17/22 20:00 96.9 F L 78 16 99/68 96 08/17/22 19:10 17 08/17/22 16:26 97.9 F 95 18 113/61 97 08/17/22 13:51 16 08/17/22 11:18 97.8 F 90 16 91/55 97 Intake and Output 08/17/22 08/18/22 08/18/22 22:59 06:59 14:59 Intake Total 100 100 250 Output Total 403 265 Balance 100 -303 -15 Intake: Intake, IV Titration 100 Amount Calcium Gluconate in NaCl 100 2 gm In Saline 1 100ml. bag @ 100 mls/hr IVPB ONCE ONE Rx#:[id number] Oral 100 250 Output: Urine 403 265 Uretheral (Tapia) 250 Other: Voiding Method Indwelling Catheter Indwelling Catheter Indwelling Catheter # Bowel Movements 1 No acute distress, lethargic/somnolent, currently on 2 L nasal cannula. HEENT examination is grossly unremarkable. Neck supple. Full range of motion. No adenopathy thyromegaly or neck vein distention. Cardiovascular examination reveals regular rhythm rate. S1-S2 normal. No S3 or S4. No discernible murmur noted. Heart sounds are distant. Heart rate 70 bpm. Lungs scattered rhonchi. Minimal basilar crackles noted. No wheezes. Rest sounds equal bilaterally. 2 L saturation is 98%. Abdomen soft bowel sounds are heard. No masses or tenderness. Extremities are intact. No cyanosis or clubbing. Mild edema present. Skin is without rash or lesion. Neurologic examination is brief but nonfocal. Results - Laboratory Findings CBC and BMP: 08/18/22 06:16 08/18/22 06:16 PT/INR, D-dimer PT 47.5 sec (9.0-12.0) H 08/18/22 06:16 INR 4.8 (<1.2) H 08/18/22 06:16 Abnormal lab findings: Abnormal Labs 08/16/22 08/16/22 08/16/22 12:27 12:27 12:27 Hct 46.4 H RDW 16.0 H Plt Count Lymphocytes # 0.9 L PT 24.2 H INR 2.4 H APTT 30.6 H Chloride Carbon Dioxide 21 L BUN 112 H* Creatinine 4.66 H Glucose 130 H POC Glucose (mg/dL) Calcium 7.9 L Phosphorus Total Bilirubin 1.6 H AST 67 H ALT 83 H Alkaline Phosphatase 221 H Troponin I Urine Appearance Urine Protein Urine Blood Ur Leukocyte Esterase Urine RBC Urine WBC Urine WBC Clumps Urine Bacteria Hyaline Casts Urine Mucus Urine Yeast (Budding) 08/16/22 08/16/22 08/16/22 12:27 13:54 15:38 Hct RDW Plt Count Lymphocytes # PT INR APTT Chloride Carbon Dioxide BUN Creatinine Glucose POC Glucose (mg/dL) Calcium Phosphorus Total Bilirubin AST ALT Alkaline Phosphatase Troponin I 0.060 H* 0.057 H* Urine Appearance Cloudy H Urine Protein 1+ H Urine Blood Moderate H Ur Leukocyte Esterase Trace H Urine RBC Urine WBC Urine WBC Clumps Urine Bacteria Hyaline Casts Urine Mucus Urine Yeast (Budding) 08/16/22 08/16/22 08/17/22 18:42 19:25 06:27 Hct RDW 15.8 H Plt Count 140 L Lymphocytes # PT INR APTT Chloride Carbon Dioxide BUN Creatinine Glucose POC Glucose (mg/dL) Calcium Phosphorus Total Bilirubin AST ALT Alkaline Phosphatase Troponin I 0.060 H* Urine Appearance Cloudy H Urine Protein 1+ H Urine Blood Large H Ur Leukocyte Esterase Moderate H Urine RBC 50 H Urine WBC 38 H Urine WBC Clumps Moderate H Urine Bacteria Rare H Hyaline Casts 22 H Urine Mucus Rare H Urine Yeast (Budding) Few H 08/17/22 08/17/22 08/17/22 06:27 06:27 11:57 Hct RDW Plt Count Lymphocytes # PT 32.9 H INR 3.3 H APTT Chloride Carbon Dioxide BUN 113 H* Creatinine 4.49 H Glucose POC Glucose (mg/dL) 123 H Calcium 7.5 L Phosphorus Total Bilirubin AST ALT Alkaline Phosphatase Troponin I Urine Appearance Urine Protein Urine Blood Ur Leukocyte Esterase Urine RBC Urine WBC Urine WBC Clumps Urine Bacteria Hyaline Casts Urine Mucus Urine Yeast (Budding) 08/17/22 08/17/22 08/18/22 17:01 20:18 00:08 Hct RDW Plt Count Lymphocytes # PT INR APTT Chloride Carbon Dioxide BUN Creatinine Glucose POC Glucose (mg/dL) 154 H 156 H 154 H Calcium Phosphorus Total Bilirubin AST ALT Alkaline Phosphatase Troponin I Urine Appearance Urine Protein Urine Blood Ur Leukocyte Esterase Urine RBC Urine WBC Urine WBC Clumps Urine Bacteria Hyaline Casts Urine Mucus Urine Yeast (Budding) 08/18/22 08/18/22 08/18/22 00:37 02:21 06:16 Hct RDW Plt Count Lymphocytes # PT 47.5 H INR 4.8 H APTT Chloride 109 H Carbon Dioxide 15 L BUN 100 H Creatinine 3.66 H Glucose 127 H POC Glucose (mg/dL) 185 H Calcium 6.0 L* Phosphorus Total Bilirubin AST ALT Alkaline Phosphatase Troponin I Urine Appearance Urine Protein Urine Blood Ur Leukocyte Esterase Urine RBC Urine WBC Urine WBC Clumps Urine Bacteria Hyaline Casts Urine Mucus Urine Yeast (Budding) 08/18/22 08/18/22 08/18/22 06:16 06:16 06:51 Hct 48.7 H RDW 15.8 H Plt Count 144 L Lymphocytes # PT INR APTT Chloride Carbon Dioxide 20 L BUN 113 H* Creatinine 4.58 H Glucose 167 H POC Glucose (mg/dL) 182 H Calcium 7.9 L Phosphorus 5.9 H Total Bilirubin AST ALT Alkaline Phosphatase Troponin I Urine Appearance Urine Protein Urine Blood Ur Leukocyte Esterase Urine RBC Urine WBC Urine WBC Clumps Urine Bacteria Hyaline Casts Urine Mucus Urine Yeast (Budding) - Diagnostic Findings Chest x-ray: image reviewed Assessment and Plan Assessment: Hypotension, following a vasovagal episode and a short run of ventricular tachycardia. History of severe cardiomyopathy with an ejection fraction of 10-15%. Acute kidney injury. Acute congestive heart failure, with reduced ejection fraction. Coronary artery disease, with previous bypass grafting. History of hypertension. History of hyperlipidemia. Prior history of myocardial infarction. History of CHF. Status post AICD placement. Plan: Plan dated 08/18/2022. The patient's labs, x-rays, and medications are reviewed. The patient overall prognosis remains very poor given her severe myopathy and a very poor ejection fraction. The patient is a DO NOT INTUBATE patient. The patient does have some lower extremity edema, and crackles at the bases, consistent with a diagnosis of CHF. We will continue to follow make recommendations along the way. She will have labs and x-rays in the morning. Time with Patient: Greater than 30
[2022-08-18 11:22] LABS: Glucose,Whole Blood 146 mg/dL (70-110)
[2022-08-18] MEDS ORDERED: DEXTROSE 50% SYRINGE 50 ML IVP PRN ×2 (15:32)
[2022-08-18] MEDS: SEVELAMER 800 MG TAB PO SCH ×2 (15:36→17:03)
--- NOTE | 2022-08-18 15:39 | P.PN ---
Subjective Progress Note Date: 08/18/22 (V. tach, hypotension, bradycardia transferred to ICU) Progress note Date of service 08/18/22 Patient in the room to 55 bed 1 in ICU During the night patient had bowel movement and collapsed with the underlying V. tach and severe hypotension as well as followed by bradycardia, she recovered and they referred her to the ICU however this event was not communicated to me during the night or in the morning. Patient seen by the systems consultant #1 Dr. Gagnon systems requirements planner and he adjust her medication #2 Dr. Fried nephrology #3 critical care and pulmonary, hooker inspector Dr. Cummins Patient seen today [id number] and evaluated discussed with her daughter and her son. Patient so far full code. The patient and family request. Laboratory reviewed on 08/18/22, WBC 9, hemoglobin 15.2, hematocrit 48.7. And her platelet count 144. The pro time 47.5, INR 4.8 and the Coumadin was held. The sodium 140 potassium 4.5, chloride 104, carbon dioxide is 20 and she had sodium bi Her calcium is 6 followed by 7.9 and since he Lambert has been withheld by Dr. Angelo and phosphate 5.9 and magnesium 2.1 and cortisol level XXXIII. carb infusion. Her BUN 113 and creatinine 4.58 with the episode of hypotension probably HTN also associated with that her EGFR is 9 for non-. Her diabetes mellitus fairly well controlled with the 180 to covered with insulin to scale, calcium was 7.9 was 6 and since he Lambert has been withheld. Phosphate 5.9, cortisol level was 33 normal. Patient seen [id number] Vital sign indicating temperature exemplary 96.7 her heart rate is 80 respiratory rate 14 blood pressure 104/65 and saturation 97%. Patient is time sleeping, head was normocephalic atraumatic and oropharynx she had her natural teeth, neck was supple no JVD no thyromegaly no lymphadenopathy she had a right lobe of the parathyroid adenoma not causing any pressure on the trachea and she been wheezing comfortably spontaneously. Chest is normal breath sounds with the kyphoscoliosis. Heart atrial fibrillation with cardiomegaly with the scar midline for previous coronary bypass graft 5. Abdomen soft positive bowel sounds no tenderness Extremities: Pulses intact with the ankle 1+ and edema as well as the dorsum of the feet. Psychiatry she has underlying depression she is on medication. Neurologically stable. Assessment: #1 ischemic cardiomyopathy with the severe impairment of ejection fraction to 10%. #2 pulmonary hypertension. #3 acute kidney injury and nonoliguric renal failure. #4 pulmonary stable Plan: We'll continue the current adjustment of her medication by the cardiology and the nephrology patient also monitoring by the critical care and pulmonary Discussed with the family the daughter and the son They understand her prognosis is very serious. Objective - Vital Signs Vital signs: Vital Signs Temp 96.7 F L 08/18/22 12:00 Pulse 80 08/18/22 14:00 Resp 14 08/18/22 14:00 BP 104/65 08/18/22 14:00 Pulse Ox 97 08/18/22 14:00 FiO2 Intake & Output 08/17/22 08/18/22 08/18/22 18:59 06:59 18:59 Intake Total 580 100 250 Output Total 900 403 340 Balance -320 -303 -90 Intake: Intake, IV Titration 100 Amount Calcium Gluconate in NaCl 100 2 gm In Saline 1 100ml. bag @ 100 mls/hr IVPB ONCE ONE Rx#:[id number] Oral 580 250 Output: Urine 900 403 340 Uretheral (Tapia) 250 Other: Voiding Method Indwelling Catheter Indwelling Catheter Indwelling Catheter # Bowel Movements 1 - Labs CBC & Chem 7: 08/18/22 06:16 08/18/22 06:16 Labs: Abnormal Lab Results - Last 24 Hours (Table) 08/17/22 08/17/22 08/18/22 Range/Units 17:01 20:18 00:08 Hct (34.0-46.0) % RDW (11.5-15.5) % Plt Count (150-450) k/uL PT (9.0-12.0) sec INR (<1.2) Chloride (98-107) mmol/L Carbon Dioxide (22-30) mmol/L BUN (7-17) mg/dL Creatinine (0.52-1.04) mg/dL Glucose (74-99) mg/dL POC Glucose (mg/dL) 154 H 156 H 154 H (70-110) mg/dL Calcium (8.4-10.2) mg/dL Phosphorus (2.5-4.5) mg/dL 08/18/22 08/18/22 08/18/22 Range/Units 00:37 02:21 06:16 Hct (34.0-46.0) % RDW (11.5-15.5) % Plt Count (150-450) k/uL PT 47.5 H (9.0-12.0) sec INR 4.8 H (<1.2) Chloride 109 H (98-107) mmol/L Carbon Dioxide 15 L (22-30) mmol/L BUN 100 H (7-17) mg/dL Creatinine 3.66 H (0.52-1.04) mg/dL Glucose 127 H (74-99) mg/dL POC Glucose (mg/dL) 185 H (70-110) mg/dL Calcium 6.0 L* (8.4-10.2) mg/dL Phosphorus (2.5-4.5) mg/dL 08/18/22 08/18/22 08/18/22 Range/Units 06:16 06:16 06:51 Hct 48.7 H (34.0-46.0) % RDW 15.8 H (11.5-15.5) % Plt Count 144 L (150-450) k/uL PT (9.0-12.0) sec INR (<1.2) Chloride (98-107) mmol/L Carbon Dioxide 20 L (22-30) mmol/L BUN 113 H* (7-17) mg/dL Creatinine 4.58 H (0.52-1.04) mg/dL Glucose 167 H (74-99) mg/dL POC Glucose (mg/dL) 182 H (70-110) mg/dL Calcium 7.9 L (8.4-10.2) mg/dL Phosphorus 5.9 H (2.5-4.5) mg/dL 08/18/22 Range/Units 11:20 Hct (34.0-46.0) % RDW (11.5-15.5) % Plt Count (150-450) k/uL PT (9.0-12.0) sec INR (<1.2) Chloride (98-107) mmol/L Carbon Dioxide (22-30) mmol/L BUN (7-17) mg/dL Creatinine (0.52-1.04) mg/dL Glucose (74-99) mg/dL POC Glucose (mg/dL) 146 H (70-110) mg/dL Calcium (8.4-10.2) mg/dL Phosphorus (2.5-4.5) mg/dL Microbiology - Last 24 Hours (Table) 08/16/22 18:42 Urine Culture - Final Urine,Clean Catch
[2022-08-18] MEDS: INSULIN ASPART (NovoLOG) 100 UNIT/ML VIAL SQ SCH (17:13)
[2022-08-18] MEDS ORDERED: WARFARIN 0.5 MG TAB PO ONE (18:00)
[2022-08-18 20:11] LABS: Glucose,Whole Blood 117 mg/dL (70-110)
[2022-08-18] MEDS: lamoTRIgine 100 MG TAB PO SCH (21:50)
[2022-08-18] MEDS: ATORVASTATIN 80 MG TAB PO SCH (21:50)
[2022-08-18] MEDS: OXYBUTYNIN XL 5 MG TAB.ER.24 PO SCH (22:13)
[2022-08-19 05:50] LABS: Anisocytosis Slight; Basophils # (A) 0.1 k/uL (0-0.2); Basophils % (A) 1 %; Eosinophils % (A) 0 %; HCT 47.1 % (34.0-46.0); HGB 14.8 gm/dL (11.4-16.0); Hypochromasia Moderate; Lymphocytes # (A) 1.4 k/uL (1.0-4.8); Lymphocytes % (A) 16 %; MCH 29.1 pg (25.0-35.0); MCHC 31.5 g/dL (31.0-37.0); MCV 92.5 fL (80.0-100.0); Mean Platelet Volume 8.6; Monocytes # (A) 0.6 k/uL (0-1.0); Monocytes % (A) 7 %; Neutrophils % (A) 72 %; Platelet Count 164 k/uL (150-450); Poikilocytosis Slight; RBC 5.09 m/uL (3.80-5.40); RDW 16.2 % (11.5-15.5); WBC 8.3 k/uL (3.8-10.6)
[2022-08-19 06:08] LABS: Prothrombin Time 52.3 sec (9.0-12.0)
[2022-08-19 06:09] LABS: Magnesium 2.1 mg/dL (1.6-2.3); Potassium 3.9 mmol/L (3.5-5.1)
[2022-08-19 06:14] LABS: INR 5.2 (<1.2)
[2022-08-19 06:34] LABS: Glucose,Whole Blood 98 mg/dL (70-110)
--- NOTE | 2022-08-19 07:39 | P.PN ---
Subjective Progress Note Date: 08/19/22 Principal diagnosis: Severe ischemic cardiomyopathy This is a 72-year-old female patient with a past medical history significant for CAD and status post CABG and severe ischemic cardiomyopathy with EF 10% based on recent echocardiogram as well as permanent atrial fibrillation and also status post AICD and also chronic kidney disease. The patient was seen as a consult yesterday on the floor for further evaluation off abnormal cardiac enzymes after she presented with heart failure. This is her second admission within the last few weeks. We treated the mildly abnormal troponin medically giving that she was not experiencing any chest pain or chest discomfort and in the light of her renal failure. August [id number] The patient was transferred to the intensive care unit last night. Apparently she went to bathroom and when she was on the bathroom she felt weak. She did have an episode of nonsustained V. tach associated with low blood pressure. She was transferred to the intensive care unit. Potential review her pressure was in the 90s. Losartan was held. She started on midodrine. Nephrology service. Currently she is not on any vasopressors. She is feeling weak and tired. I am going to stop the metoprolol and increase the dose of amiodarone giving the low blood pressure. Beside that the CODE STATUS was addressed with the family and currently she is DO NOT RESUSCITATE. Overall the prognosis is extremely poor giving the severe cardiomyopathy and overall cardiac condition August 192021 The patient was seen this morning. She stated "I don't feel good" which is a same statement as yesterday. She is likely stable and she is not on any v asopressors at this point. She is on amiodarone. Metoprolol was held yesterday in the light off low blood pressure. Currently also she is on midodrine to support her blood pressure. No work episode off ventricular arrhythmia noted since she was transferred to the intensive care unit. She reports no pain in the chest pain she seems to be euvolemic on examination. Overall the prognosis is poor giving her ejection fraction was only 10%. Objective - Vital Signs Vital signs: Vital Signs Temp 97.6 F 08/19/22 04:00 Pulse 80 08/19/22 04:00 Resp 14 08/19/22 04:00 BP 105/65 08/19/22 04:00 Pulse Ox 92 L 08/19/22 04:00 FiO2 Intake & Output 08/18/22 08/19/22 08/19/22 18:59 06:59 18:59 Intake Total 450 Output Total 695 Balance -245 Weight 75.2 kg Intake: Oral 450 Output: Urine 695 Other: Voiding Method Indwelling Catheter - Constitutional General appearance: Present: no acute distress - Respiratory Respiratory: bilateral: diminished - Cardiovascular Heart sounds: normal: S1, S2 Abnormal Heart Sounds: Present: systolic murmur - Labs CBC & Chem 7: 08/19/22 05:26 08/19/22 05:26 Labs: Abnormal Lab Results - Last 24 Hours (Table) 08/18/22 08/18/22 08/18/22 Range/Units 06:16 11:20 20:10 Hct (34.0-46.0) % RDW (11.5-15.5) % PT (9.0-12.0) sec INR (<1.2) Carbon Dioxide 20 L (22-30) mmol/L BUN 113 H* (7-17) mg/dL Creatinine 4.58 H (0.52-1.04) mg/dL Glucose 167 H (74-99) mg/dL POC Glucose (mg/dL) 146 H 117 H (70-110) mg/dL Calcium 7.9 L (8.4-10.2) mg/dL Phosphorus 5.9 H (2.5-4.5) mg/dL 08/19/22 08/19/22 08/19/22 Range/Units 05:26 05:26 05:26 Hct 47.1 H (34.0-46.0) % RDW 16.2 H (11.5-15.5) % PT 52.3 H (9.0-12.0) sec INR 5.2 H* (<1.2) Carbon Dioxide (22-30) mmol/L BUN 116 H* (7-17) mg/dL Creatinine 4.28 H (0.52-1.04) mg/dL Glucose (74-99) mg/dL POC Glucose (mg/dL) (70-110) mg/dL Calcium 8.0 L (8.4-10.2) mg/dL Phosphorus (2.5-4.5) mg/dL Assessment and Plan Assessment: Assessment Severe ischemic cardiomyopathy Severe and status post CABG Permanent atrial fibrillation Status post AICD Chronic kidney disease Ventricular arrhythmia with nonsustained V. tach Plan Continue the current medical regimen Continue the current dose of amiodarone Overall poor prognosis
[2022-08-19] MEDS: INSULIN ASPART (NovoLOG) 100 UNIT/ML VIAL SQ SCH ×3 (08:41→13:17)
[2022-08-19] MEDS: SEVELAMER 800 MG TAB PO SCH ×3 (08:46→18:15)
[2022-08-19] MEDS: SODIUM BICARBONATE TAB 650 MG TAB PO SCH ×2 (08:46→20:40)
[2022-08-19] MEDS: MIDODRINE 5 MG TAB PO SCH ×3 (08:46→18:25)
[2022-08-19] MEDS: AMIODARONE 200 MG TAB PO SCH (08:46)
[2022-08-19] MEDS: MEMANTINE 10 MG TAB PO SCH ×2 (08:46→20:40)
[2022-08-19] MEDS: PARoxetine 10 MG TAB PO SCH (08:47)
[2022-08-19] MEDS ORDERED: FUROSEMIDE 10 MG/ML 4 ML VIAL IV STA (08:56)
--- NOTE | 2022-08-19 09:18 | P.PN ---
Subjective patient is seen in follow-up for acute kidney injury on chronic kidney disease. renal function fairly stable compared to yesterday. Urine output has been 40-50 mL an hour. Patient is quite lethargic. Not on vasopressors. Vital signs are stable. General: await. Resting in bed. HEENT: Head exam is unremarkable. LUNGS: Breath sounds decreased. HEART: Rate and Rhythm are regular. ABDOMEN: soft, no distention. EXTREMITITES: 1+ edema. Objective - Vital Signs Vital signs: Vital Signs Temp 96.3 F L 08/19/22 08:00 Pulse 99 08/19/22 08:00 Resp 12 08/19/22 08:00 BP 99/67 08/19/22 08:00 Pulse Ox 94 L 08/19/22 08:00 FiO2 Intake & Output 08/18/22 08/19/22 08/19/22 18:59 06:59 18:59 Intake Total 450 100 Output Total 695 175 Balance -245 -75 Weight 75.2 kg Intake: Oral 450 100 Output: Urine 695 175 Other: Voiding Method Indwelling Catheter Indwelling Catheter - Labs CBC & Chem 7: 08/19/22 05:26 08/19/22 05:26 Labs: Abnormal Lab Results - Last 24 Hours (Table) 08/18/22 08/18/22 08/19/22 Range/Units 11:20 20:10 05:26 Hct (34.0-46.0) % RDW (11.5-15.5) % PT 52.3 H (9.0-12.0) sec INR 5.2 H* (<1.2) BUN (7-17) mg/dL Creatinine (0.52-1.04) mg/dL POC Glucose (mg/dL) 146 H 117 H (70-110) mg/dL Calcium (8.4-10.2) mg/dL 08/19/22 08/19/22 Range/Units 05:26 05:26 Hct 47.1 H (34.0-46.0) % RDW 16.2 H (11.5-15.5) % PT (9.0-12.0) sec INR (<1.2) BUN 116 H* (7-17) mg/dL Creatinine 4.28 H (0.52-1.04) mg/dL POC Glucose (mg/dL) (70-110) mg/dL Calcium 8.0 L (8.4-10.2) mg/dL Assessment and Plan Plan: Assessment: 1. Acute kidney injury secondary to ATN secondary to cardiorenal syndrome. also component of hypotension and V. tach. Creatinine 4.28 today this morning. Nonoliguric. No hydronephrosis noted on ultrasound. 2. Chronic kidney disease stage IV secondary to diabetic kidney disease and cardiorenal syndrome with baseline creatinine near 2. 3. Acute on chronic systolic CHF with ejection fraction of 10-15%. 4. History of hypercalcemia with concern for primary hyperparathyroidism maintained on Sensipar. Rest of the workup was negative in July 2022. Patient has an appointment scheduled with endocrinology outpatient. Calcium was replaced. 7.9 this morning. 5. Metabolic acidosis secondary to acute kidney injury maintained on oral bicarbonate. better. 6. Diabetes mellitus. 7. History of A. fib. 8. Volume overload. Plan: repeat IV Lasix 40 mg once today. continue to hold Cozaar. continue to hold sensipar for now as calcium on lower side (required IV calcium this admission). Avoid nephrotoxins. maintain midodrine. Hold for systolic blood pressure greater than 115. Continue to monitor renal function and urine output. Continue to assess daily for need for renal replacement therapy. Discussed with patient and her daughter present at bedside. patient is not an ideal candidate for renal replacement therapy due to severe ischemic cardiomyopathy. prognosis guarded.
--- NOTE | 2022-08-19 10:09 | P.PN ---
Subjective Progress Note Date: 08/19/22 Principal diagnosis: Shortness of breath. Pulmonary consult dated 08/18/2022. 71-year-old female who was admitted through the emergency department on August 16, brought in by EMS, weakness, shortness of breath, and was found to have heart failure, and acute kidney injury. She came to the intensive care unit on August 17, having had a vasovagal episode, with hypotensive, and a short run of ventricular tachycardia. The nurses call me, and we attempted to keep her on the floor by giving her midodrine, and fluids, but in the end, her blood pressure never responded, and she had to come to the intensive care unit. Currently, she is on 2 L of oxygen. She's not receiving any IV fluids. She never required any pressor such as norepinephrine. The patient is a DO NOT INTUBATE patient. I do not know that yesterday we'll be reviewing with her. She does have a history of diabetes, hyperlipidemia, hypertension, myocardial infarction, CHF, and previous bypass surgery. She also has an AICD device in. White count 9, hemoglobin 15.2, hematocrit 48.7, and platelet count 244,000. PTT is 47.5. INR 4.8. Sodium 140, potassium 4.5, chlorides 104, CO2 20, BUN 113, anion gap 16, and creatinine 4.58. Chest x-ray dated August 18 does show evidence of fluid overload/CHF. Both cardiology and nephrology have been consulted. Progress note dated 08/19/2022. 71-year-old female who was seen in room 255. She was seen in consultation yesterday. Please see my note from above. The patient was admitted through the emergency department on August 16, and was brought in by EMS for weakness, and shortness of breath, and CHF. In addition, she was found to have acute kidney injury. She came to the intensive care unit on August 17, having had a vasovagal episode, with hypotension, and a short run of ventricular tachycardia. The patient is stable. She is on room air. No IV fluids. The patient has not been hypotensive now for some time. The patient is stable for transfer out to the cardiac floor. White count 8.3, hemoglobin 14.8, hematocrit 47.1, platelet count 164,000. PTT 52.3 with an INR of 5.2. Sodium, potassium, chloride, and CO2 are all normal. Anion gap is 17. BUN and creatinine were 116 and 4.28 respectively. No chest x-ray today. Objective - Vital Signs Vital signs: Vital Signs Temp 96.3 F L 08/19/22 08:00 Pulse 99 08/19/22 08:00 Resp 12 08/19/22 08:00 BP 99/67 08/19/22 08:00 Pulse Ox 94 L 08/19/22 08:00 FiO2 Intake & Output 08/18/22 08/19/22 08/19/22 18:59 06:59 18:59 Intake Total 450 100 Output Total 695 175 Balance -245 -75 Weight 75.2 kg Intake: Oral 450 100 Output: Urine 695 175 Other: Voiding Method Indwelling Catheter Indwelling Catheter - Exam No acute distress, lethargic/somnolent, currently on room air. HEENT examination is grossly unremarkable. Neck supple. Full range of motion. No adenopathy thyromegaly or neck vein distention. Cardiovascular examination reveals regular rhythm rate. S1-S2 normal. No S3 or S4. No discernible murmur noted. Heart sounds are distant. Heart rate 93 bpm. Lungs scattered rhonchi. Minimal basilar crackles noted. No wheezes. Rest sounds equal bilaterally. Room air saturations are 94%. Abdomen soft bowel sounds are heard. No masses or tenderness. Extremities are intact. No cyanosis or clubbing. Mild edema present. Skin is without rash or lesion. Neurologic examination is brief but nonfocal. - Labs CBC & Chem 7: 08/19/22 05:26 08/19/22 05:26 Labs: Abnormal Lab Results - Last 24 Hours (Table) 08/18/22 08/18/22 08/19/22 Range/Units 11:20 20:10 05:26 Hct (34.0-46.0) % RDW (11.5-15.5) % PT 52.3 H (9.0-12.0) sec INR 5.2 H* (<1.2) BUN (7-17) mg/dL Creatinine (0.52-1.04) mg/dL POC Glucose (mg/dL) 146 H 117 H (70-110) mg/dL Calcium (8.4-10.2) mg/dL 08/19/22 08/19/22 Range/Units 05:26 05:26 Hct 47.1 H (34.0-46.0) % RDW 16.2 H (11.5-15.5) % PT (9.0-12.0) sec INR (<1.2) BUN 116 H* (7-17) mg/dL Creatinine 4.28 H (0.52-1.04) mg/dL POC Glucose (mg/dL) (70-110) mg/dL Calcium 8.0 L (8.4-10.2) mg/dL Assessment and Plan Assessment: Hypotension, following a vasovagal episode and a short run of ventricular tachycardia, resolved. History of severe cardiomyopathy with an ejection fraction of 10-15%. Acute kidney injury. Anion gap metabolic acidosis. Acute congestive heart failure, with reduced ejection fraction. Coronary artery disease, with previous bypass grafting. History of hypertension. History of hyperlipidemia. Prior history of myocardial infarction. History of CHF. Status post AICD placement. Plan: Plan dated 08/18/2022. The patient's labs, x-rays, and medications are reviewed. The patient overall prognosis remains very poor given her severe myopathy and a very poor ejection fraction. The patient is a DO NOT INTUBATE patient. The patient does have some lower extremity edema, and crackles at the bases, consistent with a diagnosis of CHF. We will continue to follow make recommendations along the way. She will have labs and x-rays in the morning. Plan dated 08/19/2022. The patient is doing much better. The patient has been stable, and has had a stable blood pressure. Her systolic blood pressure is typically in the mid 90s. The patient could be downgraded to the cardiac floor. Labs, x-rays, and medications are reviewed. Room air saturations are in the mid 90s. Medications are reviewed. Prognosis is guarded. Additional recommendations and suggestions are forthcoming. Time with Patient: Less than 30
[2022-08-19 11:35] LABS: Glucose,Whole Blood 128 mg/dL (70-110)
--- NOTE | 2022-08-19 12:18 | P.PN ---
Subjective Progress Note Date: 08/19/22 (Requesting psychiatrist) Progress note Date of service 08/19/[address] So Patient seen and evaluated [id number], Discussed with her son and her daughter Also discussed the CODE STATUS with the daughter and the son in the light of patient condition at this time they requesting psychiatry with the feeling that the patient depressed progressively worse. They will decided later if the psychiatric consultation was not helpful, at that time they are thinking in the progress for hospice but not at this time also in regard of the CODE STATUS and no code no decision and they will continue for a full code at this time as voiced by her son. This patient seen today she is conscious alert and she able to communicate with a few word but appeared to be severely depressed. Laboratory WBC 8.3, hemoglobin 14.8. Pro time 52.3 and INR 5.2 with the underlying Coumadin was held as monitored by pharmacist. Chemistry: Her sodium 142, potassium 3.9, chloride 103, carbon dioxide 22, BUN 116 and cre atinine 4.28. EGFR for non- 10, glucose 95. Blood sugar monitored and has been stable was covered with insulin to scale however lost reading between 98 and 128 with Decreased intake of food and water. Calcium today is 8 improved and magnesium 2.1. On the exam Vital sign temperature 96.3 exemplary and earlier was 90 7.6F oral. Pulse rate 99/m and respiratory rate 12/m normal nonlabored. Her blood pressure 99/67 with a mean 77, earlier blood pressure 105/65 with a mean 87. Oxygen saturation on the room air 94%. As mentioned she was conscious she was alert depressed mood doesn't want communicate with even her [facility]. Head was normocephalic and atraumatic pupils equal reactive Oropharynx natural teeth No pain, no chest pain she is comfortable. Chest normal breath sound decreased air entry on the basis Heart irregular irregularities with atrial fibrillation chronic on the treatment. Abdomen soft. Bowel sounds no tenderness. Extremities positive trace edema. Positive pulses bilateral. No ischemic changes. Genitourinary: She had Tapia catheter. Assessment: #1 severe depressive state and planning for psychiatric consultation and hopefully adjustment of her medication #2 cardiomyopathy with ischemic heart disease and impairment of ejection fraction 10% was underlying severe impairment #3 acute kidney injury #4 progressive chronic kidney disease stage IV with progressive secondary to recurrent hypotension and ATN. #5 coronary artery occlusive disease with status post 5 vessel bypass graft. #6 history of hypertensive heart disease currently is hypotensive maintained above 90. #7 history of major depressive disorder and bipolar. Plan: #1 discussed the CODE STATUS from full code to no code however family wants to wait until seen by the psychiatrist #2 underlying discussion with hospice also discussed end-of-life in detail with the daughter and son. #3 they are waiting for the psychiatry consultation for evaluation and possible changes of medication and maybe some improvement #4 for further discussion after the evaluation and possible changes of their opinion later on. #5 I did order the consultation for the psychiatry to see the patient and maribel shane hopefully today or tomorrow, Significant discussion with the family. Time spent more than 35 minutes Objective - Vital Signs Vital signs: Vital Signs Temp 96.3 F L 08/19/22 08:00 Pulse 99 08/19/22 08:00 Resp 12 08/19/22 08:00 BP 99/67 08/19/22 08:00 Pulse Ox 94 L 08/19/22 08:00 FiO2 Intake & Output 08/18/22 08/19/22 08/19/22 18:59 06:59 18:59 Intake Total 450 100 Output Total 695 175 Balance -245 -75 Weight 75.2 kg Intake: Oral 450 100 Output: Urine 695 175 Other: Voiding Method Indwelling Catheter Indwelling Catheter - Labs CBC & Chem 7: 08/19/22 05:26 08/19/22 05:26 Labs: Abnormal Lab Results - Last 24 Hours (Table) 08/18/22 08/19/22 08/19/22 Range/Units 20:10 05:26 05:26 Hct 47.1 H (34.0-46.0) % RDW 16.2 H (11.5-15.5) % PT 52.3 H (9.0-12.0) sec INR 5.2 H* (<1.2) BUN (7-17) mg/dL Creatinine (0.52-1.04) mg/dL POC Glucose (mg/dL) 117 H (70-110) mg/dL Calcium (8.4-10.2) mg/dL 08/19/22 08/19/22 Range/Units 05:26 11:33 Hct (34.0-46.0) % RDW (11.5-15.5) % PT (9.0-12.0) sec INR (<1.2) BUN 116 H* (7-17) mg/dL Creatinine 4.28 H (0.52-1.04) mg/dL POC Glucose (mg/dL) 128 H (70-110) mg/dL Calcium 8.0 L (8.4-10.2) mg/dL
--- NOTE | 2022-08-19 16:17 | P.CN ---
Psychiatric Consult - . Consult date: 08/19/22 Consult:: 08/19/22 15:48 IDENTIFYING DATA: Patient is a single, 71-year-old [place] female who is admitted for MILLY and acute on chronic CHF with 10% EF. Patient has a medical hx of coronary artery bypass graft 5, biventricular ischemic cardiomyopathy with impaired ejection fraction 10%, pulmonary hypertension, diabetes mellitus type 2 on oral hypoglycemic agents, chronic kidney disease, and HTN. Psychiatry is consulted for depression HPI: Patient was seen bedside with family present. Her 2 children and her sister expressed that they were concerned about her current status. They left the room while this provider spoke with the patient. Dorothy states that she had been doing well and denies low mood. However, with her physical and medical deterioration, she has been having low energy, low appetite and trouble sleeping. She endorsed a history of depression that was worse in the 80s but has been responding to her current psychotropic medications including Lamictal, Namenda, and Paxil. She just states that she is "tired. " Patient denies symptoms of elvia, denies AVH, and denies HI, and SI, as asked and assessed. Patient is A&O4. She states that outside of the hospital, she is able to care for herself and is able to complete ADLs. She states that her children are her guardians. Given her poor cardiac, lung, and kidney function, hospice has been a consideration. This provider was present in a discussion between the family and the nurse about the consideration of hospice. Family plans to discuss this further with hospice and palliative care, as deemed appropriate by the primary team. PSYCH HX: Previous psychiatrist: In [place] but none since moving here Therapist: Melissa for the past 15 years Hospitalizations: Denies SA: Once via OD in 80s SUBSTANCE HX: Used to smoke 1 ppd but denies all substance use currently SOCIAL/LEGAL HX: Living by herself. Son lives nearby. Reports being able to complete ADLs generally. She was after being for a few years. She reports that her son and daughter are her guardians. Her sister also lives nearby. FAM PSYCH HX: Denies Suicide attempts: Denies MENTAL STATUS EXAM: Patient is a 71-year-old who appears her stated age. She is dressed in hospital scrubs and resting in bed. Grooming and hygiene are fair. Poor eye contact and eyes closed during duration of the interview. No abnormal movements (facial tics or tremors) are appreciated. Not restless. Cooperative to interview. Speaks Irish. Speech is clear and coherent with regular rate and intonation. Mood is euthymic and "tired". Affect is mood congruent. Thought process is linear and goal-directed. Patient participates in conversation and answers questions appropriately. Thought content: denies suicidal ideation today. Engaged in treatment planning today. Denies AVH, paranoia. A&Ox4. Attention and concentration intact to interview. No evidence that patient is responding to internal stimuli. Fund of knowledge is broad. Recent and remote memory are intact to interview. Judgment fair. Insight is good. 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 The patient is not presenting with imminent risk of harm to self or others. She is not psychotic or manic. -Continue Lamictal 200 mg qHS, Namenda 10 mg BID -Change Paxil 30 mg to nighttime due to potential to contribute to anticholinergic confusion during daytime -Start Remeron 7.5 mg for appetite and sleep -Recommend the following to prevent delirium: Re-orient the patient frequently to person, place, and time. Lights on during the day, off at night (except one dim light). Allow normalization of sleep. Keep patient active during the day (e.g. Walking, up to chair, conversation); Provide corrective/assistive devices if necessary (e.g. Eye glasses, hearing aids, etc.). Remove indwelling devices once possible (e.g. Tapia catheter). Maintain adequate hydration and nutritional status. Correct any underlying electrolyte abnormalities. Avoid benzodiazepines, opiates, and any medications with anticholinergic properties if possible, as these may worsen delirium. -Recommend discussion with hospice and palliative care teams -Medical management by primary team -Psychiatry will sign off at this point, please contact with any questions. Thank you for the consult 08/19/22 16:15
[2022-08-19 16:29] LABS: Glucose,Whole Blood 122 mg/dL (70-110)
[2022-08-19] MEDS ORDERED: WARFARIN 0.5 MG TAB PO ONE (18:00)
[2022-08-19] MEDS: ATORVASTATIN 80 MG TAB PO SCH (20:40)
[2022-08-19] MEDS: lamoTRIgine 100 MG TAB PO SCH (20:40)
[2022-08-19] MEDS: OXYBUTYNIN XL 5 MG TAB.ER.24 PO SCH (20:40)
[2022-08-19] MEDS ORDERED: MIRTAZAPINE 15 MG TAB PO SCH (21:00)
[2022-08-19 21:04] VITALS: BP 100/70; PULSE 113; TEMP 97.6
[2022-08-19] MEDS ORDERED: LORazepam 2 MG/ML INJ IV PRN (23:19)
[2022-08-20 00:56] VITALS: RESP 16
--- NOTE | 2022-08-20 12:18 | P.DS ---
Providers Date of admission: 08/16/22 13:58 Expected date of discharge: 08/19/22 () Attending physician: Levy So Consults: 08/16/22 13:56 Consult Physician Routine Consulting Provider: [facility] Consult Reason/Comments: CHF, chronically elevated troponin Do you want consulting provider notified?: Yes Consult Physician Routine Consulting Provider: Cm Fried Consult Reason/Comments: MILLY on CKD Do you want consulting provider notified?: Yes 08/18/22 02:03 Consult Physician Stat Consulting Provider: Tripp Cummins Consult Reason/Comments: ICU management Do you want consulting provider notified?: Already Contacted 08/19/22 11:45 Consult Physician Stat Consulting Provider: Brian Bailey Consult Reason/Comments: Major depressive disorder and bipolar progressive Do you want consulting provider notified?: Yes Primary care physician: Levy So Dictation of discharge summary Admission date 08/16/2022 Discharge date 08/19/2022 Disposition . Final diagnosis #1 ischemic cardiomyopathy #2 severely impaired ventricular function with the ejection fraction 10% #3 acute kidney injury secondary to pump failure #4 progression of the renal failure to stage IV with the repeated hypotensive state and resulted in nonoliguric renal failure with ATN #5 to organ failure cardiac and renal associated with cardiorenal syndrome. #6 recurrent V. tach and hypotension #7 history of coronary artery bypass graft 5 #8 major depressive disorder. #9 failure to thrive. Patient presented to the ER with acute kidney injury and prerenal azotemia and chronic congestive heart failure secondary to pump failure, admitted to hospital monitor floor with the consultation cardiology and nephrology. Hospital course Patient seen by Dr. Fried, and cardiology Dr. Joyce and Dr. Gagnon Medication adjusted with the recurrent hypotension She had a be sewed of bradycardia hypotension and V. tach on the floor with a vasovagal when she went to the bowel movement, patient sent to the ICU where she was also seen by Dr. Cummins pulmonary and critical care as well and the cardiology and nephrology. Patient transferred back to the third floor telemetry after stabilization in the ICU and no added treatment except adjustment of medication. Patient progressively worsening and discussed with her son and daughter in detail with her options. Patient family requested to be full code until psych evaluation Patient is seen by the psych and the RN liza phoned me requested that the family wants to have no "no resuscitation as well as requesting information of hospice The night nurse also called me to discuss the patient her status is progressively with the active and need unexcited T medication has she is thrashing with her arms but no pain and Ativan order was given. Subsequently patient and artery and notify me with the was after 11 PM and patient was comfortable I did inform the nurse to cancel the hospice, they were unable to see her that day and unable to discuss it with the family and patient Dawson no need for hospice at this time I did have progress note on the same day as I did see the patient and the prognosis was very poor with the expectation to and also the expectation of the nephrology and the pulmonary and critical care Son and daughter was prepared for the grave events as I did discuss end-of-life with them. Patient Condition at Discharge: Stable Plan - Discharge Summary Discharge Rx Participant: No New Discharge Prescriptions: Discontinued Metoprolol Succinate (ER) [Toprol XL] 50 mg PO DAILY Bumetanide [BUMEX] 0.5 mg PO DAILY Losartan [Cozaar] 25 mg PO DAILY PARoxetine HCL [Paxil Cr] 37.5 mg PO DAILY Tolterodine [Detrol] 2 mg PO HS Amiodarone [Cordarone] 200 mg PO BID #60 tab Atorvastatin [Lipitor] 80 mg PO HS 30 Days tab Sodium Bicarbonate Tab 650 mg PO BID #60 tab Memantine [Namenda] 10 mg PO BID lamoTRIgine [LaMICtal] 200 mg PO HS Cinacalcet [Sensipar] 30 mg PO SA Warfarin [Coumadin] 1 mg PO [id number] Follow up Appointment(s)/Referral(s): Levy So MD [Primary Care Provider] - As Needed (Patient on 08/19/2022) Discharge Disposition: - Preliminary Cause of Preliminary Cause of : Severe ischemic cardiomyopathy and failure to thrive
[2022-08-20] MEDS ORDERED: PARoxetine 10 MG TAB PO SCH (21:00)
== END 2022-08-19 23:25 | disposition expired | DRG 291 ==
LOC: EC 11:08 → 3SCARD 13:58 → 2SICU 08-18 02:03 → 3SCARD 08-19 09:23
PROVIDERS: ADMIT Internal Medicine; ATTEND Internal Medicine
DX: I13.0 Hypertensive heart and chronic kidney disease with heart failure and stage 1 through stage 4 chronic kidney disease, or unspecified chronic kidney disease (principal); I50.23 Acute on chronic systolic (congestive) heart failure; N17.0 Acute kidney failure with tubular necrosis; N18.4 Chronic kidney disease, stage 4 (severe); E87.2 Acidosis; I47.2 Ventricular tachycardia; I48.21 Permanent atrial fibrillation; R62.7 Adult failure to thrive; Z20.822 Contact with and (suspected) exposure to COVID-19; Z66 Do not resuscitate; I25.5 Ischemic cardiomyopathy; E11.22 Type 2 diabetes mellitus with diabetic chronic kidney disease; I48.91 Unspecified atrial fibrillation; E83.52 Hypercalcemia; I25.10 Atherosclerotic heart disease of native coronary artery without angina pectoris; I95.9 Hypotension, unspecified; I27.20 Pulmonary hypertension, unspecified; M41.9 Scoliosis, unspecified; I5A Non-ischemic myocardial injury (non-traumatic); F41.9 Anxiety disorder, unspecified; F32.A Depression, unspecified; R53.1 Weakness; I08.1 Rheumatic disorders of both mitral and tricuspid valves; D35.1 Benign neoplasm of parathyroid gland; E78.5 Hyperlipidemia, unspecified; E83.39 Other disorders of phosphorus metabolism; I25.2 Old myocardial infarction; Z68.26 Body mass index [BMI] 26.0-26.9, adult; Z79.01 Long term (current) use of anticoagulants; Z79.899 Other long term (current) drug therapy; Z87.891 Personal history of nicotine dependence; Z95.1 Presence of aortocoronary bypass graft; Z95.810 Presence of automatic (implantable) cardiac defibrillator; Z88.8 Allergy status to other drugs, medicaments and biological substances; Z91.041 Radiographic dye allergy status; Z79.84 Long term (current) use of oral hypoglycemic drugs
CPT/HCPCS: 36415; 51798; 71045; 71046; 76770; 80048; 80053; 81001; 82533; 83605; 83735; 83880; 84100; 84484; 85025; 85610; 85730; 87086; 87502; 87635; 93005